=== PATIENT | male | born 1955 | race Caucasian/White ===

== ENCOUNTER 2021-10-26 10:50 | Outpatient (REF) | payer OTHER, SELFPAY ==
[2021-10-26 11:36] LABS: Hematocrit 36.5 % (42.0-52.0); Hemoglobin 12.3 g/dl (14.0-18.0); Mean Corpuscular HGB Conc 33.7 g/dl (31.0-36.0); Mean Corpuscular Volume 91.9 fL (80.0-98.0); Mean Platelet Volume 10.6 fL (9.4-12.4); Platelet Count 178 X10*3/uL (160-400); Red Blood Count 3.97 X10*6/uL (4.60-5.80); Red Cell Distribution Width 13.2 % (11.0-16.0); White Blood Count 4.9 X10*3/uL (4.8-10.8)
[2021-10-26 11:48] LABS: Appearance Urine HAZY; Color Urine YELLOW; Glucose Urine UA NEG (NEG); Leukocyte Esterase Urine NEG (NEG); Nitrite Urine NEG (NEG); Specific Gravity - Urine >= 1.030 (1.005-1.025); Urine Blood NEG (NEG); Urine Ketones NEG (NEG); Urine Protein TRACE MG/DL (NEG-TRACE)
[2021-10-26 12:13] LABS: Alanine Aminotransferase 279 U/L (0-40); Albumin Level 4.3 g/dL (3.5-5.0); Alkaline Phosphatase 66 U/L (39-117); Anion Gap 11 (12-20); Aspartate Amino Transferase 196 U/L (5-37); Bilirubin Direct 0.3 mg/dL (0.0-0.5); Bilirubin Total 0.7 mg/dL (0.0-1.0); Blood Urea Nitrogen 19 mg/dL (9-16); Carbon Dioxide 25 mmol/L (22-29); Chloride 105 mmol/L (96-108); Cholesterol 165 mg/dL; Estimated Glomerular Filt Rate > 60; Glucose Random 200 mg/dL (60-115); HDL Cholesterol 39 mg/dL; LDL Cholesterol Calculated 113 mg/dl; Potassium 4.4 mmol/L (3.3-5.1); Sodium 137 mmol/L (135-145); Total Protein 7.8 g/dL (6.5-8.0); Triglycerides 68 mg/dL
[2021-10-26 12:33] LABS: Thyroid Stimulating Hormone 2.59 uIU/mL (0.32-4.0)
== END 2021-10-26 10:51 | disposition home or self-care (01) ==
LOC: HO.LAB 10:50
PROVIDERS: PCP Internal Medicine; Visit Provider Internal Medicine
DX: Z00.00 Encounter for general adult medical examination without abnormal findings (principal)
CPT/HCPCS: 36415; 80048; 80061; 80076; 81003; 84443; 85027

== ENCOUNTER → 2022-04-20 14:10 | Outpatient (BNVA) | payer MEDICARE, MEDICAID, SELFPAY | PROVIDERS: PCP Internal Medicine; Referring Provider Internal Medicine; Visit Provider Physician Assistant | DX: Z01.818 Encounter for other preprocedural examination (principal) | CPT/HCPCS: 99202 ==

== ENCOUNTER 2023-01-30 10:13 | Day surgery (SDC) | payer MEDICARE, MEDICAID, SELFPAY ==
[2023-01-26 13:56] VITALS: BMI 34.6
[2023-01-30 10:34] VITALS: BMI 33.9
[2023-01-30 10:38] VITALS: BP 181/88; PULSE 76; RESP 18; TEMP 36.8; O2SAT 97
--- NOTE | 2023-01-30 10:51 | P.HPSUR_ITS ---
Pre-Procedural Eval Section A Date of Service: 01/30/23 Section B Chief Complaint: Encounter for screening for malignant neoplasm Relevant Family History (Specify if Yes): No Relevant Social History: Other (specify) (prior alcohl use ) Present Medications: see Short Stay Collaborative assessment Medical History: Significant History (Alcohol dependence, uncomplicated Substance use disorder) History of Previous Operations: Relevant previous surgery/procedure and date(s) (knee surgery) Allergies: Allergies Allergy/AdvReac Type Severity Reaction Status Date / Time No Known Allergies Allergy Verified 12/18/22 11:37 Review of Systems Sugical H&P ROS: Negative: Constitution, Cardiovascular, Respiratory, Neurological, Psychiatric, Hem-Onc, Allergic/Immunologic, Gastrointestinal, Genitourinary, Musculoskeletal, Integumentary, Endocrine and Eyes/Ears/Nose/T hroat Exam Surgical H&P Exam: Normal: HEENT, Normal: Heart, Normal: Lungs, Normal: Extremities, Normal: Abdomen, Normal: Skin and Normal: Neurological Plan Diagnosis/Plan: Unchanged I have reviewed the history and physical and performed a pertinent physical examination on my patient. No changes have occurred unless specified. Time Spent With Patient Time: Total time managing care of this patient today ____ minutes.
[2023-01-30] MEDS: Lactated Ringers 1,000 ML 100 ML IVCONT (10:59)
--- NOTE | 2023-01-30 11:06 | HO.ANESPROP2 ---
HPI - Anesthesia Eval Consult details Narrative: 67-year-old male presenting for routine screening colonoscopy PMF Active Problems Active Problems: All Active Problems (Updated 01/26/23 @ 13:56 by Roxana Angeles RN) Annual physical exam (Acute) Diabetes mellitus (Acute) Encounter for screening colonoscopy (Acute) Alcohol dependence, uncomplicated (Acute) Substance use disorder (Acute) Past Medical History Medical History (Updated 01/30/23 @ 11:13 by Kane John MD) Alcohol dependence, uncomplicated Diabetes Substance use disorder Family History Family History Other Substance use disorder Family history of problems with anesthesia: No Surgical History Surgical History History of knee surgery History of Problems with Anesthesia: No Social History Social History Household Members Other:: live alone Housing: House Alcohol intake: current Alcohol intake frequency: a few times a week Patient Tobacco Use Status: Never used Tobacco e-Cigarette/Vaping Use: Never Used Second Hand Smoke Exposure: No Use of substances other than those prescribed or required for medical reasons: No Substance Use Type Other:: suboxone - drug free x 10 years Are you DNR?: No Advance Directives: No Advance Directives Information Provided: Yes service: No Current occupational status: retired Cognitive needs: No Hearing needs: No Vision needs: Yes (Reading glasses) Meds Allergies Allergy/AdvReac Type Severity Reaction Status Date / Time No Known Allergies Allergy Verified 12/18/22 11:37 Active Medications: Current Medications Lactated Ringer's (Lr) 1,000 mls @ 100 mls/hr IVCONT .Q10H ROSEMARIE Last Admin: 01/30/23 10:59 Dose: 100 mls/hr Home Medications Medication Instructions Recorded Confirmed Last Taken Type buprenorphine 2 mg-naloxone 0.5 mg 2 mg sublingual DAILY 10/26/21 01/26/23 Unknown History sublingual film (Suboxone) Exam Exam Date and Time: January 30, 2023 1106 Height,Weight and Vital Signs: Height 6 ft Weight 250 lb Last Vital Signs Temp 98.2 F 01/30/23 10:38 Pulse 76 01/30/23 10:38 Resp 18 01/30/23 10:38 BP 181/88 H 01/30/23 10:38 Pulse Ox 97 01/30/23 10:38 O2 Del Method Room Air 01/30/23 10:38 Airway Mallampati Class: II TM Dist: >3cm Neck ROM: Full Loose/Missing/Broken Teeth: Yes Assessment and Plan Assessment Anesthesia Assessment: Anesthesia Plan Discussed Final Anesthetic Review Family History of Problems with Anesthesia: No History of Problems with Anesthesia: No NPO: Yes ASA Class: II Final Preanesthetic Review: No Changes in Pt Med Stat, Meds/Allgs Chart Reviewed, Consent Obtained/Reviewed and Anes Risks/Benef Reviewed Patient Risk: Low Procedure Risk: Low Anesthetic Plan Anesthetic Plan: MAC: Disposition: Standard PACU
--- NOTE | 2023-01-30 11:59 | W.PM.OPN ---
Operative Note Operative Note Date of Service: 01/30/23 Narrative: Operative Information Procedure Description: Colonoscopy Indication: screening Anesthesia: MAC COLONOSCOPY Instrument: Olympus variable stiffness ADULT scope 190L Colonoscopy Monitoring: Vital signs and clinical assessment, continuous EKG monitoring, Pulse oximetry, Carbon Dioxide monitoring and blood pressure monitoring were done throughout the procedure. Colon withdrawal time was 19 minutes. Procedure: The patient was placed in the left lateral decubitis position and pre-procedure medications were administered. After a digital rectal examination of the ano-rectum, the video colonoscope was inserted into the rectum and advanced through the colon to the cecum/TI. The colonoscope was slowly withdrawn in a retrograde panoramic fashion and the colon mucosa was carefully examined including a retroflexed view of the rectum. Findings and interventions are described below. Procedure Difficulty: easy Findings: Terminal Ileum-normal Cecum: x 2 sessile polyps - 4-6 mm removed with cold forceps Ascending Colon: 12 mm sessile polyp with central depression, did lift easily with eleview injection. Removed en bloc with hot snare and then defect closed with 3 clips. x2 sessile polyps 6-8 mm removed with cold snare. The proximal polyp was retrieved with a net. Transverse Colon -normal Descending Colon:normal Sigmoid Colon: midl diverticulosis Rectum: Retroflexion with small internal hemorrhoids, grade I Anorectum - normal Colon preparation: Chadwicks Bowel Preparation Scale Right colon; 2 Transverse colon: 3 Left colon; 2 (0 = Unprepared colon segment with mucosa not seen due to solid stool that cannot be cleared. 1 = Portion of mucosa of the colon segment seen, but other areas of the colon segment not well seen due to staining, residual stool and/or opaque liquid. 2 = Minor amount of residual staining, small fragments of stool and/or opaque liquid, but mucosa of colon segment seen well. 3 = Entire mucosa of colon segment seen well with no residual staining, small fragments of stool or opaque liquid) Impression and Post Procedure Diagnosis: polyps internal hemorrhoids diverticular disease Plan: High fiber diet leaflet Avoid straining at stool, epsom salts and sitz bath, anusol supps or cream Repeat Colonoscopy in 4-6 months or earlier if clinically indicated, if neoplasia then surgical referral Above findings were reviewed with the patient and relevant handouts were provided if indicated.
[2023-01-30 12:06] VITALS: BP 147/69; PULSE 66; RESP 16; TEMP 36.1; O2SAT 97
[2023-01-30 12:11] VITALS: BP 125/66; PULSE 68; RESP 18; O2SAT 97
[2023-01-30 12:16] VITALS: BP 127/71; PULSE 68; RESP 18; O2SAT 96
[2023-01-30 12:21] VITALS: BP 131/72; PULSE 60; RESP 18; TEMP 36.8; O2SAT 96
== END 2023-01-30 13:26 | disposition home or self-care (01) ==
PROVIDERS: PCP Internal Medicine; Visit Provider Internal Medicine Gastroenterology
PROC: 0DJD8ZZ Inspection of Lower Intestinal Tract, Via Natural or Artificial Opening Endoscopic (ICD-10-PCS; CPT 45378; principal; 2023-01-30 12:00)
DX: Z12.11 Encounter for screening for malignant neoplasm of colon (principal); C18.2 Malignant neoplasm of ascending colon; D12.0 Benign neoplasm of cecum; D12.2 Benign neoplasm of ascending colon; K57.30 Diverticulosis of large intestine without perforation or abscess without bleeding; K64.0 First degree hemorrhoids
CPT/HCPCS: 45385; 45380; 45381; 88305; 88341; 88342; J2250

== ENCOUNTER → 2023-01-30 10:13 | Outpatient (BNV) | payer MEDICARE, MEDICAID, SELFPAY | PROVIDERS: PCP Internal Medicine; Visit Provider Internal Medicine Gastroenterology | DX: K63.5 Polyp of colon (principal) | CPT/HCPCS: 45380; 45385 ==

== ENCOUNTER 2023-02-07 13:28 | Outpatient (AMB) | payer MEDICARE, MEDICAID, SELFPAY ==
--- NOTE | 2023-02-07 13:31 | A.OFFVIS_ITS ---
Intake Vital Signs 02/07/23 13:40 Weight 247 lb Intake Visit Reasons: Malignant neoplasm of colon Intake Note: This patient presents for an assessment for malignant neoplasm of colon. Patient c/o; denies rectal bleeding, denies rectal pain or pressure. Stage Rigger Required: No Accompanied by: Self / Same As Patient Allergies No Known Allergies Allergy (Verified 02/07/23 13:38) Medication List - Last Reconciled 02/07/23 by Don Fiore MD bisacodyl (Dulcolax (bisacodyl)) 10 mg (2 x 5 mg) PO ONCE 1 day blood-glucose meter As directed buprenorphine-naloxone 2-0.5 mg (Suboxone) 2 mg sublingual DAILY lisinopril 10 mg PO DAILY metformin ER 500 mg PO BID 90 days polyethylene glycol 3350 (Miralax) 238 grams PO ONCE 1 day HPI Malignant neoplasm of colon HPI Details 67-year-old male referred for colon cancer. He had a colonoscopy done last 01/30/2023. There were multiple polyps removed. One polyp removed from the proximal right colon showed invasive adenocarcinoma with mucinous differentiation. This polyp was described to be sessile, a central depression. This involves the submucosa and extends the cauterized base. There were the other polyps removed which were adenomatous without dysplasia. He says that this was his 1st colonoscopy. He denies any GI complaints. He denies any family history of colon cancer. [facility], [facility] Medical History Alcohol dependence, uncomplicated Diabetes Substance use disorder Surgical History History of knee surgery Hx of colonoscopy Family History Mother Cancer of unknown origin Other Substance use disorder Social History Household Members Other:: live alone Housing: House Alcohol intake: current Alcohol intake frequency: a few times a week Patient Tobacco Use Status: Never used Tobacco e-Cigarette/Vaping Use: Never Used Second Hand Smoke Exposure: No service: No Current occupational status: retired Cognitive needs: No Hearing needs: No Vision needs: Yes (Reading glasses) Review of Systems Const Denies chills and Denies fever(s) Card Denies chest pain, Denies dyspnea and Denies dyspnea on exertion Resp Denies cough, Denies dyspnea and Denies dyspnea on exertion GI Denies hematochezia and Denies change in bowel habits Denies hematuria and Denies difficulty urinating Musc Denies back pain and Denies limited range of motion Neuro Denies focal weakness and Denies convulsions Psych Denies depression and Denies mood swings Physical Exam Const General: comfortable and no acute distress Orientation/consciousness: patient oriented x3 Neck Neck: Yes no lymphadenopathy Resp Auscultation: clear to auscultation bilaterally Cardio Rhythm: regular rhythm GI Palpation (GI): Soft to palpation, nontender and no guarding Neuro General: patient oriented x3 Assessment & Plan Assessment & Plan (1) Colon cancer: Code(s): C18.9 - Malignant neoplasm of colon, unspecified Plan: A polyp removed at the proximal ascending colon was actually an invasive adenocarcinoma. This extends to the base. I therefore explained to him that it will be best to proceed with right colon resection. I discussed with the technique of hand assisted laparoscopic right colon resection and possible conversion to open. I reviewed with him the risks including but not limited to bleeding, infections, anastomotic leak, bowel injury, injury to other organs including the urinary tract, blood clots, pneumonia, obstruction, as well as the benefits and alternatives. He understands the perioperative risk of general anesthesia including NC, strokes, respiratory failure. He wants to proceed. I explained to him what to expect postoperatively. He will also be referred to Oncology. I will order for a CAT scan and CEA level as part of metastatic workup. Orders: Orders Blood Urea Nitrogen 02/07/23 C18.9 - Malignant neoplasm of colon, unspecified Carcinoembryonic Antigen 02/07/23 C18.9 - Malignant neoplasm of colon, unspe cified Creatinine 02/07/23 C18.9 - Malignant neoplasm of colon, unspecified Referrals Hematology & Oncology Referral C18.9 - Malignant neoplasm of colon, unspecified Coding Level of Care Code New Pt Level 4 (12343) Diagnoses Colon cancer C18.9
== END 2023-02-07 14:06 | disposition home or self-care (01) ==
PROVIDERS: PCP Internal Medicine; Visit Provider Surgery
DX: C18.9 Malignant neoplasm of colon, unspecified (principal)
CPT/HCPCS: 99204

== ENCOUNTER 2023-02-07 13:28 | Outpatient (REF) | payer MEDICARE, MEDICAID, SELFPAY ==
[2023-02-07 16:40] LABS: Blood Urea Nitrogen 28 mg/dL (9-16); Estimated Glomerular Filt Rate > 60
== END 2023-02-07 13:29 | disposition home or self-care (01) ==
LOC: HO.LAB 13:28
PROVIDERS: PCP Internal Medicine; Visit Provider Surgery
DX: C18.9 Malignant neoplasm of colon, unspecified (principal); Z79.899 Other long term (current) drug therapy
CPT/HCPCS: 36415; 82378; 82565; 84520; 99202

== ENCOUNTER → 2023-03-02 12:35 | Outpatient (BNV) | payer MEDICARE, MEDICAID, SELFPAY | PROVIDERS: Admitting Provider Surgery; PCP Internal Medicine; Visit Provider Internal Medicine Cardiovascular Disease | DX: I44.0 Atrioventricular block, first degree (principal) | CPT/HCPCS: 93010 ==

== ENCOUNTER 2023-03-07 15:58 | Outpatient (REF) | payer OTHER, SELFPAY | END 2023-03-07 15:59 | disposition home or self-care (01) | LOC: HO.CT 15:58 | PROVIDERS: PCP Internal Medicine; Visit Provider Surgery | DX: Z13.89 Encounter for screening for other disorder (principal) ==

== ENCOUNTER 2023-03-12 12:50 | Outpatient (REF) | payer OTHER, SELFPAY ==
--- NOTE | ~2023-03-12 | CT_ITS ---
EXAMINATION: CT ABDOMEN AND PELVIS WITH CONTRAST CLINICAL INFORMATION: Rule out metastatic disease COMPARISON: Abdominal ultrasound from 2009 TECHNIQUE: Multidetector volumetric images were obtained from the superior aspect of the liver through the pubic symphysis following administration 85 mL of Omnipaque 350 intravenous contrast. Sagittal and coronal reformatted images were obtained on the technologist's workstation. Oral contrast: Yes This CT examination was performed using dose optimization techniques as appropriate, variously including the following: *Automated exposure control *Adjustment of mA and/or kV according to patient size (this includes techniques or standardized protocols for targeted exams where dose is matched to indication/reason for exam; i.e. extremities or head) *Use of iterative reconstruction technique DLP: 838 mGy-cm FINDINGS: LUNG BASES: 5 mm peripheral or subpleural right lower lobe nodule axial image 2 series 3. LIVER, GALLBLADDER, AND BILIARY TREE: Question mild cirrhotic changes of the liver with slightly nodular contour prominence of the left lobe and caudate lobe. No focal liver lesion. Gallbladder is normal. No biliary duct dilatation. PANCREAS: Unremarkable. SPLEEN: Upper normal-size spleen measuring 13.3 cm in length. ADRENAL GLANDS: Unremarkable. KIDNEYS AND URETERS: The kidneys are normal in size, shape, and attenuation. No hydronephrosis, hydroureter, or calculi seen. No perinephric stranding. BLADDER: Unremarkable. GASTROINTESTINAL TRACT: There is mild dilatation of small bowel loops in the left mid abdomen and small bowel feces sign. There is question of irregular wall thickening or lesion in the proximal small bowel for example axial image 48 series 3. Small and large bowel is otherwise normal. The appendix is normal. The stomach is normal. ABDOMINAL WALL: No significant hernia is appreciated. LYMPH NODES: Small retroperitoneal lymph nodes. No enlarged lymph nodes. No ascites. VASCULAR: Unremarkable. PELVIC VISCERA: Unremarkable. OSSEOUS STRUCTURES: Degenerative changes of the spine and hip joints. No fracture or bone lesion. CT/CT abdomen pelvis w IV con IMPRESSION: Question mild cirrhotic changes of the liver. Upper normal-size spleen. Slightly distended small bowel fluid-filled proximal small bowel with fecalization. Question irregular wall thickening versus lesion in the proximal small bowel image 48 series 3. Correlation with clinical history recommended. This could be better evaluated with MR or CT enterography exam if clinically indicated. 5 mm right lower lobe nodule. Chest CT follow-up as per protocol.. Fleischner guidelines were followed.
[2023-03-12] MEDS: iohexoL 350 MG/ML 100 ML INFUS..BTL IV (13:47)
== END 2023-03-12 12:51 | disposition home or self-care (01) ==
LOC: HO.CT 12:50
PROVIDERS: PCP Internal Medicine; Visit Provider Surgery
DX: C18.9 Malignant neoplasm of colon, unspecified (principal)
CPT/HCPCS: 74177; Q9967

== ENCOUNTER 2023-03-13 07:40 | Inpatient (IN) | payer OTHER, SELFPAY ==
--- NOTE | 2023-03-02 | ECG_ITS ---
Test Reason : preop Blood Pressure : / mmHG Vent. Rate : 061 BPM Atrial Rate : 061 BPM P-R Int : 256 ms QRS Dur : 090 ms QT Int : 410 ms P-R-T Axes : 047 053 054 degrees QTc Int : 412 ms Sinus rhythm with sinus arrhythmia with 1st degree A-V block Otherwise normal ECG No previous ECGs available Referred By: Brissa Borges Electronically Signed By:Chaitanya Lugo
[2023-03-02 11:24] VITALS: BP 211/100; PULSE 64; RESP 16; O2SAT 99; BMI 35.1
--- NOTE | 2023-03-02 12:04 | HO.ANESPROP2 ---
Documented by User: Brissa Borges NP 03/08/23 13:51 HPI - Anesthesia Eval Consult details Narrative: 68yo M for Right Hand Assist Colon Resection Laparoscopic,poss open No recent illness NO CP/SOB with heavy exercise Suboxone daily for 10yrs. Dose now is 2mg daily. OK to continue periop. ETOH 5-6 beers daily, pt reports stopping last Sunday DM2 - does not check POC at home BP up at [facility]. Previous readings WNL. Reports stress/not sleeping. Workload to PCP with any rec's preop. Urine tox ordered at [facility] but not collected by lab. [facility] Active Problems Active Problems: All Active Problems (Updated 03/02/23 @ 11:57 by Lynn Sloan, KAREN) Annual physical exam (Acute) Diabetes mellitus (Acute) Encounter for screening colonoscopy (Acute) Hypertension (Acute) Colon cancer (Acute) Alcohol dependence, uncomplicated (Acute) Substance use disorder (Acute) Past Medical History Medical History (Updated 03/02/23 @ 11:57 by Lynn Sloan RN) Alcohol dependence, uncomplicated Diabetes Joint pain Situational anxiety Substance use disorder Family History Family History Mother Cancer of unknown origin Other Substance use disorder Family history of problems with anesthesia: No Surgical History Surgical History (Updated 03/02/23 @ 11:14 by Lynn Sloan RN) History of knee surgery Hx of colonoscopy History of Problems with Anesthesia: No Social History Social History (Updated 03/02/23 @ 11:55 by Lynn Sloan RN) Household Members: None Household Members Other:: lives alone Housing: Apartment Are you a primary career technical education teacher to a significant other at home: No Do you presently have visiting nurse or other home services: No Alcohol intake: current Alcohol intake frequency: a few times a week Patient Tobacco Use Status: Never used Tobacco e-Cigarette/Vaping Use: Never Used Second Hand Smoke Exposure: No Last Used Substance Other:: last used more than 10 years ago opiates, on Suboxone 11 years service: No Current occupational status: retired Cognitive needs: No Hearing needs: No Vision needs: Yes (Reading glasses) Meds Allergies Allergy/AdvReac Type Severity Reaction Status Date / Time No Known Allergies Allergy Verified 03/13/23 06:47 Home Medications Medication Instructions Recorded Confirmed Last Taken Type buprenorphine 2 mg-naloxone 0.5 mg 2 mg sublingual DAILY 10/26/21 03/13/23 03/12/23 History sublingual film (Suboxone) 2 mg Exam Exam Date and Time: March 02, 2023 1204 Height,Weight and Vital Signs: Height 5 ft 11 in Weight 114.305 kg Last Vital Signs Pulse 64 03/02/23 11:24 Resp 16 03/02/23 11:24 BP 211/100 H 03/02/23 11:24 Pulse Ox 99 03/02/23 11:24 O2 Del Method Room Air 03/02/23 11:24 Pertinent Lab Results Pertinent Lab Results: Lab Results 03/02/23 03/02/23 03/02/23 Range/Units 12:35 12:39 12:39 WBC 5.0 (4.8-10.8) X10*3/uL RBC 3.75 L (4.60-5.80) X10*6/uL Hgb 11.5 L (14.0-18.0) g/dl Hct 34.7 L (42.0-52.0) % MCV 92.5 (80.0-98.0) fL MCH 30.7 (27.0-33.0) pg MCHC 33.1 (31.0-36.0) g/dl RDW 13.1 (11.0-16.0) % Plt Count 144 L (160-400) X10*3/uL MPV 10.7 (9.4-12.4) fL Absolute Nucleated RBC 0.000 (0.0-0.012) X10*3/uL Nucleated RBC % (auto) 0.0 (0.0-0.2) /100WBC Sodium 140 (135-145) mmol/L Potassium 4.2 (3.3-5.1) mmol/L Chloride 104 (96-108) mmol/L Carbon Dioxide 28 (22-29) mmol/L Anion Gap 12 (12-20) BUN 10 (9-16) mg/dL Creatinine 1.11 (0.5-1.4) mg/dL Estim Creat Clear Calc 84.1 Estimated GFR > 60 Random Glucose 151 H (60-115) mg/dL Estimat Average Glucose mg/dL Hemoglobin A1c % % Calcium 9.3 (8.4-10.2) mg/dL Total Bilirubin 0.5 (0.0-1.0) mg/dL AST 25 (5-37) U/L ALT 23 (0-40) U/L Alkaline Phosphatase 69 (39-117) U/L Total Protein 7.6 (6.5-8.0) g/dL Albumin 4.1 (3.5-5.0) g/dL Blood Type AB Positive Antibody Screen NEGATIVE 03/02/23 Range/Units 12:39 WBC (4.8-10.8) X10*3/uL RBC (4.60-5.80) X10*6/uL Hgb (14.0-18.0) g/dl Hct (42.0-52.0) % MCV (80.0-98.0) fL MCH (27.0-33.0) pg MCHC (31.0-36.0) g/dl RDW (11.0-16.0) % Plt Count (160-400) X10*3/uL MPV (9.4-12.4) fL Absolute Nucleated RBC (0.0-0.012) X10*3/uL Nucleated RBC % (auto) (0.0-0.2) /100WBC Sodium (135-145) mmol/L Potassium (3.3-5.1) mmol/L Chloride (96-108) mmol/L Carbon Dioxide (22-29) mmol/L Anion Gap (12-20) BUN (9-16) mg/dL Creatinine (0.5-1.4) mg/dL Estim Creat Clear Calc Estimated GFR Random Glucose (60-115) mg/dL Estimat Average Glucose 148 mg/dL Hemoglobin A1c % 6.8 % Calcium (8.4-10.2) mg/dL Total Bilirubin (0.0-1.0) mg/dL AST (5-37) U/L ALT (0-40) U/L Alkaline Phosphatase (39-117) U/L Total Protein (6.5-8.0) g/dL Albumin (3.5-5.0) g/dL Blood Type Antibody Screen Narrative Narrative: EKG 02/2023 Vent. Rate : 061 BPM ? ? Atrial Rate : 061 BPM ?? P-R Int : 256 ms? QRS Dur : 090 ms ? ? QT Int : 410 ms ? ? ? P-R-T Axes : 047 053 054 degrees ?? QTc Int : 412 ms ? Sinus rhythm with sinus arrhythmia with 1st degree A-V block Otherwise normal ECG No previous ECGs available Airway Mallampati Class: I TM Dist: >3cm Neck ROM: Full Loose/Missing/Broken Teeth: Yes (Broken top right. Broken left lower.) Heart: RRR Lungs: CTAB Assessment and Plan Assessment Anesthesia Assessment: Anesthesia Plan Discussed and PAT Visit Final Anesthetic Review Family History of Problems with Anesthesia: No History of Problems with Anesthesia: No Documented by User: Contreras Haynes MD 03/13/23 07:34 [facility] Past Medical History Medical History (Updated 03/02/23 @ 11:57 by Lynn Sloan RN) Alcohol dependence, uncomplicated Diabetes Joint pain Situational anxiety Substance use disorder Family History Family History Mother Cancer of unknown origin Other Substance use disorder Surgical History Surgical History (Updated 03/02/23 @ 11:14 by Lynn Sloan RN) History of knee surgery Hx of colonoscopy Social History Social History (Updated 03/02/23 @ 11:55 by Lynn Sloan RN) Household Members: None Household Members Other:: lives alone Housing: Apartment Are you a primary career technical education teacher to a significant other at home: No Do you presently have visiting nurse or other home services: No Alcohol intake: current Alcohol intake frequency: a few times a week Patient Tobacco Use Status: Never used Tobacco e-Cigarette/Vaping Use: Never Used Second Hand Smoke Exposure: No Last Used Substance Other:: last used more than 10 years ago opiates, on Suboxone 11 years service: No Current occupational status: retired Cognitive needs: No Hearing needs: No Vision needs: Yes (Reading glasses) Meds Allergies Allergy/AdvReac Type Severity Reaction Status Date / Time No Known Allergies Allergy Verified 03/13/23 06:47 Home Medications Medication Instructions Recorded Confirmed Last Taken Type buprenorphine 2 mg-naloxone 0.5 mg 2 mg sublingual DAILY 10/26/21 03/13/23 03/12/23 History sublingual film (Suboxone) 2 mg Exam Airway Mallampati Class: II TM Dist: <=3cm Loose/Missing/Broken Teeth: Upper Assessment and Plan Assessment Anesthesia Assessment: Chart Reviewed Final Anesthetic Review NPO: Yes ASA Class: III Final Preanesthetic Review: No Changes in Pt Med Stat, Meds/Allgs Chart Reviewed, Consent Obtained/Reviewed and Anes Risks/Benef Reviewed Patient Risk: Intermediate Procedure Risk: Intermediate Anesthetic Plan Anesthetic Plan: GA and Regional Block (TAP block, if poss) Disposition: Standard PACU
[2023-03-02 13:20] LABS: Hematocrit 34.7 % (42.0-52.0); Hemoglobin 11.5 g/dl (14.0-18.0); Mean Corpuscular HGB Conc 33.1 g/dl (31.0-36.0); Mean Corpuscular Hemoglobin 30.7 pg (27.0-33.0); Mean Corpuscular Volume 92.5 fL (80.0-98.0); Mean Platelet Volume 10.7 fL (9.4-12.4); Platelet Count 144 X10*3/uL (160-400); Red Blood Count 3.75 X10*6/uL (4.60-5.80); Red Cell Distribution Width 13.1 % (11.0-16.0)
[2023-03-02 14:48] LABS: Alanine Aminotransferase 23 U/L (0-40); Albumin Level 4.1 g/dL (3.5-5.0); Alkaline Phosphatase 69 U/L (39-117); Anion Gap 12 (12-20); Aspartate Amino Transferase 25 U/L (5-37); Bilirubin Total 0.5 mg/dL (0.0-1.0); Blood Urea Nitrogen 10 mg/dL (9-16); Calcium 9.3 mg/dL (8.4-10.2); Carbon Dioxide 28 mmol/L (22-29); Chloride 104 mmol/L (96-108); Creatinine Clr Calc Pharmacy 84.1; Estimated Glomerular Filt Rate > 60; Glucose Random 151 mg/dL (60-115); Potassium 4.2 mmol/L (3.3-5.1); Sodium 140 mmol/L (135-145); Total Protein 7.6 g/dL (6.5-8.0)
[2023-03-03 03:28] LABS: Estimated Average Glucose 148 mg/dL; Hemoglobin A1C 150.8223 umol/L; Hemoglobin A1c % 6.8 %
[2023-03-13] VITALS (25 sets, daily range): BP systolic 153–218; BP diastolic 66–105; PULSE 66–80; RESP 16–20; TEMP 36.3–37.7; O2SAT 96–98
--- NOTE | ~2023-03-13 | XR_ITS ---
EXAMINATION: XR X ARE IVP WITH KUB CLINICAL INDICATION: Blood in urine COMPARISON: Previous CT of the abdomen and pelvis 03/12/2022 and KUB from the same day TECHNIQUE: AP intraoperative view of the low abdomen/pelvis following IV contrast administered in the operating room. FINDINGS: There is opacification of both distal ureters which appear nondilated. There may be a small amount of excreted contrast seen in the bladder. There multiple foreign bodies seen, a lucent [place] over the midline abdomen measuring 15.7 cm in diameter, probable sponge over the soft tissues of the left lateral thigh, probable needle projecting over the left proximal femoral shaft and 2 partially visualized circles probably representing handle of a surgical device. Bowel gas pattern is unremarkable. Degenerative changes of the spine and hip joints. XR/XR IVP w KUB IMPRESSION: Opacification of bilateral distal ureters which do not appear dilated. Probable small amount of excreted contrast in the bladder. Foreign bodies likely related to a surgical instruments as described above.
--- NOTE | ~2023-03-13 | XR_ITS ---
EXAMINATION: XR ABDOMEN KUB CLINICAL INDICATION: Blood in urine COMPARISON: Previous CT of the abdomen and pelvis 03/12/2022 TECHNIQUE: AP intraoperative view of the low abdomen/pelvis following IV contrast administered in the operating room. FINDINGS: There is opacification of both distal ureters which appear nondilated. There may be a small amount of excreted contrast seen in the bladder. There multiple foreign bodies seen, a lucent [place] over the midline abdomen measuring 15.7 cm in diameter, probable sponge over the soft tissues of the left lateral thigh, probable needle projecting over the left proximal femoral shaft and 2 partially visualized circles probably representing handle of a surgical device. Bowel gas pattern is unremarkable. Degenerative changes of the spine. XR/XR KUB IMPRESSION: Opacification of bilateral distal ureters which do not appear dilated. Probable small amount of excreted contrast in the bladder. Foreign bodies likely related to a surgical instruments as described above.
[2023-03-13 07:10] LABS: Amphetamine Screen Urine Not Detected (Not Detect); Barbiturates, Urine Not Detected (Not Detect); Benzodiazepines Screen Urine Not Detected (Not Detect); Cannabinoid Screen Urine POSITIVE (Not Detect); Cocaine Screen Urine Not Detected (Not Detect); Fentanyl, urine Not Detected (Not Detect); Opiate Screen Urine Not Detected (Not Detect); Phencyclidine Screen Urine Not Detected (Not Detect)
--- NOTE | 2023-03-13 07:29 | PC.NURSE ---
Patient arrived to preop with 4 films of Sublingual Suboxone. Medications counted and sealed properly with two RNs and brought to pharmacy by liyah Donahue.
[2023-03-13] MEDS: Lactated Ringers 1,000 ML 100 ML IVCONT ×2 (07:30→17:50)
--- NOTE | 2023-03-13 07:35 | PC.NURSE ---
All recent Lab results (PLT, CBC) from 03/[address] Fiore and Dr. Stemp. Hernandez to proceed with surgery.
--- NOTE | 2023-03-13 07:38 | P.HPSUR_ITS ---
Pre-Procedural Eval Section A Date of Service: 03/13/23 Section B Chief Complaint: Malignant neoplasm of colon, unspecified Details of Present Illness: had colonoscopy in January 30, 2023, with note of a flat polyp in the ascending colon, with central depression, removed with snare but path report shows invasive adenoCA, extending to the margins Relevant Family History (Specify if Yes): No Relevant Social History: Other (specify) (substance abuse) Present Medications: see Short Stay Collaborative assessment Medical History: Significant History (substance abuse, on suboxone, DM, HTN) History of Previous Operations: Relevant previous surgery/procedure and date(s) Allergies: Allergies Allergy/AdvReac Type Severity Reaction Status Date / Time No Known Allergies Allergy Verified 03/13/23 06:47 Review of Systems Sugical H&P ROS: Negative: Constitution, Cardiovascular, Respiratory, Neurological, Psychiatric, Hem-Onc, Allergic/Immunologic, Gastrointestinal, Genitourinary, Musculoskeletal, Integumentary, Endocrine and Eyes/Ears/Nos e/Throat Exam Surgical H&P Exam: Normal: HEENT, Normal: Heart, Normal: Lungs, Normal: Extremities, Normal: Abdomen, Normal: Skin and Normal: Neurological Plan Diagnosis/Plan: Unchanged I have reviewed the history and physical and performed a pertinent physical examination on my patient. No changes have occurred unless specified. Time Spent With Patient Time: Total time managing care of this patient today ____ minutes.
--- OUTSIDE RECORDS SUMMARY | 2023-03-13 07:46 | XMS_ITS | Continuity of Care Document ---
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 Worker Name Role Phone Not on Staff, PCP Primary Care Physician Unavail able Encounter [facility] Date(s): 05/20/20 - 05/20/[address] [id number]- [facility] Discharge Disposition: A-D/C Home Attending Physician: Guy Bryan MD Admitting Physician: Guy Bryan MD Referring Physician: Not on Staff, Referring MD Allergies, Adverse Reactions, Alerts Substance Reaction Severity Status NKA Active Immunizations Given and Recorded Vaccine Date Status Refusal Reason tetanus/diphtheria/pertussis, acel(Tdap) 10/02/10 Given Medications no current home medications 0, 04/18/06 5:10:55, Current med (Hx), no current home medications Start Date: 04/18/06 Status: Ordered Seroquel Tablet 100, mg, By Mouth, Daily at bedtime, 14, 1, 0, 1, 04/23/06 14:43:50, Print MARIA DOLORES Number, ADS OPPT, [facility] Adult [address] [place] [id number], 144 Start Date: 04/23/06 Stop Date: 05/07/06 Status: Ordered Trazodone Tablet 150, mg, By Mouth, Daily at bedtime, 14, 1, 0, 1, 04/23/06 14:42:49, ADS OPPTHS, 144 Start Date: 04/23/06 Stop Date: 05/07/06 Status: Ordered Zoloft Tablet 100, mg, By Mouth, Daily in AM, 14, 1, 0, 1, 04/23/06 14:43:20, Print MARIA DOLORES Number, ADS OPPTHS, 141 Start Date: 04/23/06 Stop Date: 10/16/06 Status: Ordered Vital Signs Most recent to oldest [Reference Range]: 1 2 Height 180 cm (05/20/20 8:17 AM) 180 cm (05/20/20 4:03 AM) Weight 115 kg (05/20/20: AM) 115 kg (05/20/20:03 AM) Oxygen Saturation [94-100 %] 98 % (05/20/20 8:17 AM) 98 % (05/20/20:03 AM) Pulse Rate [55-90 bpm] 61 bpm (05/20/20: AM) 70 bpm (05/20/20:03 AM) Body Mass Index [18.5-24.99] 35.49 *>HHI* (05/20/20: AM) Blood Pressure [90-138/55-84 mm Hg] 113/ 54mm Hg (05/20/20 8:17 AM) 124/73mm Hg (05/20/20:03 AM) Respiratory Rate [16-30 br/min] 20 br/mi n (05/20/20: AM) 18 br/min (05/20/20:03 AM) Temperature [96.8-100.4 DegF] 97.9 DegF (05/20/20: AM) 97.7 DegF (05/20/20:03 AM) Mode of Delivery (Oxygen) Room air (05/20/20 8: AM) Blood pressure sites Arm, left (05/20/20 8: AM) Temperature Route Oral (05/20/20 8:17 AM) Dry Weight 115 kg (05/20/20 8:17 AM) 115 kg (05/20/20:03 AM)
--- NOTE | 2023-03-13 11:52 | P.OP_ITS ---
Operative Note Operative Note Date of Service: 03/13/23 Narrative: Preop diagnosis: right colon cancer Postop diagnosis: The same Procedure: Hand assisted laparoscopic right colon resection intraop consultation with Urology - Dr. Cortez for hematuria surgeon: Don Fiore MD front office assistant: NAKUL Kaba Patient is 68-year-old male gone colonoscopy last January, and had a polyp removed in the ascending colon need a cecum. This was discussed with the endoscopist. The path report had shown invasive adenocarcinoma with positive margins I therefore explained to him that it would be best to proceed with right colon resection. I explained to the technique of the planned procedure as well as the risks, benefits, and alternatives and had given consent He was brought to the operating room. He was placed supine under general anesthesia via endotracheal tube. The left arm was tucked. Tolbert catheter was inserted. The abdomen was prepped and draped in the usual sterile fashion. A surgical time-out was done. The patient received Cefotan 2 g IV preoperatively I made a short midline incision at the level of the umbilicus using blade 15. And this carried down with electrocautery through the full-thickness of the skin subcutaneous fat down to the fascia. The fascia was incised. The peritoneum was entered. The Hunter wound retractor position. I attached the GelPort with an insufflating port and a camera. We insufflated to pressure 50 minutes hg. With laparoscopic visualization using a 30 degree 10 mm scope, inserted a 5/12 mm port in the epigastric area below the cyst sternal margin as well as on the left upper quadrant. We moved the camera into the epigastric port. With patient's placed any [id number] position. We my head was placed to the GelPort and reflected all the bowel loops away from the right lower quadrant. I was able to visualize the cecum in the right colon. I proceeded to then mobilize the right colon by dividing the ligamentous attachments along the white line of Toldt using the LigaSure. I continue with dissection all the way at hepatic flexure to divide the hepatocolic ligaments. This was continued to the midline. I then proceeded to continue to lift up the right colon off of the retroperiton eum. I continued to mobilize the cecum and the terminal ileum to divide the ligamentous attachment until was adequately mobilized. I was able to therefore separate the entire colon and the attached mesentery from the retroperitoneum. This time it appeared that we had good mobilization so I attempted to bring out these colon to the midline incision. However we were able to bring up the terminal ileum and the cecum but we notice we a at some tension on the hepatic flexure. I therefore replaced the bowel was packed to the peritoneal cavity It appeared that we had to divide more of the gastrocolic ligament so we proceeded to do this using the LigaSure all the way past the midline. I was able to visualize the duodenum already earlier and this was protected during the rest of the dissection. We had already lifted the right colon off of the retroperitoneum at the level of the duodenum which was our medial margin We then desufflated and pulled up the cecum and this time ray able to actually bring up the entire right colon all the way to the hepatic flexure and the proximal transverse colon. I chose my point of dissection in the terminal ileum and created a mesenteric window. I divided this with a LAURO 60 mm stapler I divided the mesentery of the terminal ileum till I reached the ileocecal valve. Since we had to do a high ligation, I did this transection of the ped icles scopic LEEP. I replaced the port. I defined the ileocolic pedicle so with the vein and the artery separately until was able to completely do a circumferential dissection. I applied clips with 2 clips being applied towards the side of the patient. Both the i drain in the artery of the physical vulvar divided using Endo scissors 20 clips We desufflated and by dividing the pedicle were able to bring up more of the right colon and the mesentery. I divided more of the mesentery. I chose point of dissection at the proximal transverse colon and created a mesenteric window. I divided this using the LAURO 80 mm stapler because of the size of the transverse colon I completed the dissection of the attached mesentery, making sure that we were including as much of the lymphatic basin as possible This was sent as a specimen. I proceeded to then do the ucar-my-[id number] anastomosis of the distal ileum to the proximal transverse colon. I aligned these limbs together at the antimesenteric side and created enterotomies on the apex of each staple line. I positioned each arm of the LAURO 60 mm stapler into the lumen. I made sure that there was no bowel loops or any mesentery caught by the staplers before locking this in place. The stapler was fired to create our anastomosis. The lumen was examined. The staple lines appear intact from the lumen and with good hemostasis I completed the anastomosis by closing the enterotomy with a TA 60 minutes stapler. I applied seromuscular sutures on the crotch of the staple line to release tension. I examined the staple lines and these appeared to be intact. The tissue appeared to be viable along the anastomosis. There was no evidence of any ischemia. I observed for hemostasis. This point the anesthesiologist had stated that the urine was bloody. I therefore consulted the urologist. He will dictate his consult note separately but in essence, a 1 shot IVP was done which showed that the ureter was intact. We then proceeded irrigate we observed for hemostasis. We had noted oozing on the gutter earlier but her observing for several minutes, this appeared to be hemostatic. Once hemostasis was confirmed,I proceeded to closed the fascia with a running Maxon 1 stitch. Skin closure was achieved with skin lisa. We had examined the closure laparoscopically prior to desufflating and this appeared to be intact without any loop caught by the sutures I removed the epigastric port. I closed all incisions with skin lisa . Dressings were applied. The procedure was completed. The patient tolerated the procedure well. There were no immediate complications. Initial and final counts of sponges and instruments were correct. Estimated blood loss was about 200 cc. The patient was extubated without difficulty and transferred to the recovery room with stable vital signs. A tap block was done by the anesthesiologist at the end. Colon Resection Tumor location: Right colon and Hepatic flexure Extent of lymphovascular resection General Surg. - Synoptic Notes Colon Resection Tumor location: Right colon and Hepatic flexure Extent of Lymphovascular Resection:
[2023-03-13] MEDS: HYDROmorphone HCl 0.5 MG/0.5 ML SYRINGE 1 MG IVPUSH ×2 (12:46→12:56)
[2023-03-13] MEDS: ondansetron HCL 4 MG/2 ML VIAL IVPUSH (12:50)
--- NOTE | 2023-03-13 12:53 | PHA.MEDREC ---
Pharmacy Consult ? Medication Reconciliation Pharmacy has completed the medication reconciliation.REVIEWED MED REC DONE BY NURSING
[2023-03-13] MEDS: Morphine Sulfate 4 MG/ML CARTRIDGE IVPUSH (14:30)
--- NOTE | 2023-03-13 15:38 | HO.PM.IMCN ---
History of Present Illness Data of Consult Service Date: 03/13/23 Requesting physician: Don Fiore Primary Care Provider: MD REGINA Schultz Reason for consult: medical management- htn 68 year old male with history of htn, [id number] type 2 diabetes, opiate use disorder, colon cancer, and history of alcohol dependence admitted to general surgery with consult placed hospitalist Medicine for medical management with concern for hypertension. Patient has been persistently hypertensive postoperatively and on recheck on exam blood pressure is 202/105. States he did take his lisinopril 10 mg this morning. He denies any headache or chest pain but does report uncontrolled abdominal pain rated 10/10. He states his last alcoholic beverage was about 1 week ago. He does not smoke cigarettes or use illicit drugs. He is on Suboxone. Review of Systems Review of Systems: General: No fevers, malaise, unintentional weight loss HEENT: No blurred vision, diplopia. Cardiovascular: No chest pain, palpitations, or leg edema Respiratory: No shortness of breath, wheezing, cough GI: +abdominal pain. No nausea, vomiting, diarrhea, constipation, melena, hematochezia [facility] Medical History Alcohol dependence, uncomplicated Colon cancer Diabetes Hypertension Joint pain Situational anxiety Substance use disorder Family History Mother Cancer of unknown origin Other Substance use disorder Surgical History History of knee surgery Hx of colonoscopy Social History Household Members: None Household Members Other:: lives alone Housing: Apartment Are you a primary animal care provider to a significant other at home: No Do you presently have visiting nurse or other home services: No Alcohol intake: current Alcohol intake frequency: a few times a week Patient Tobacco Use Status: Never used Tobacco e-Cigarette/Vaping Use: Never Used Second Hand Smoke Exposure: No Use of substances other than those prescribed or required for medical reasons: No Substance Use Type Other:: on Suboxone 11 years Have you been hit, kicked, punched, or otherwise hurt by someone within the past year? If so, by whom?: No Do you feel safe in your current relationship?: Yes Is there a partner from a previous relationship who is making you feel unsafe now?: No Are you made to feel afraid or neglected: No Are you DNR?: No Advance Directives: No Advance Directives Information Provided: Yes Advance Directives on File: No Do you have thoughts of harming others: None Do you have a plan to hurt others: No Plan Recently lost weight without trying: No Nutrition Risks: No Nutritional Risk Poor oral hygiene: No (2 upper right molars missing, 1 left lower molar missing) service: No Current occupational status: retired Cognitive needs: No Hearing needs: No Vision needs: Yes (Reading glasses) Meds Allergies Allergy/AdvReac Type Severity Reaction Status Date / Time No Known Allergies Allergy Verified 03/13/23 06:47 Active Medications: Current Medications Buprenorphine/Naloxone (Buprenorphine/Naloxone 2/0.5mg Film) 1 film SUBLINGUAL DAILY [place] Dextrose (Dextrose 50 % 25 Gm/50 Ml Syringe) 25 gm IVPUSH Q15M PRN; Protocol PRN Reason: per Hypoglycemia Standing Ord. Glucose (Glucose Gel 15 Gm Gel..Gram.) 15 gm PO Q15M PRN; Protocol PRN Reason: per Hypoglycemia Standing Ord. Heparin Sodium (Porcine) (Heparin Sodium,Porcine 5,000 Unit/Ml Vial) 5,000 unit SUBCUT Q8H [place] Hydromorphone HCl (Hydromorphone Hcl 1 Mg/Ml Syringe) 1 mg IVPUSH Q2H PRN; Protocol PRN Reason: Pain, Severe (Pain Scale 7-10) Lactated Ringer's (Lr) 1,000 mls @ 100 mls/hr IVCONT .Q10H [facility] Last Infusion: 03/13/23 13:44 Dose: Infused Acetaminophen (Ofirmev) 1,000 mg in 100 mls @ 400 mls/hr IV Q6H [facility] Insulin Human Lispro (Insulin Lispro 100 Unit/Ml 3 Ml Vial) 0 unit SUBCUT QIDACHS [facility]; Protocol Lisinopril (Lisinopril 10 Mg Tablet) 10 mg PO DAILY [facility]; Protocol Ondansetron HCl (Ondansetron Hcl 4 Mg/2 Ml Vial) 4 mg IVPUSH Q8H PRN PRN Reason: Nausea and Vomiting Oxycodone HCl (Oxycodone Hcl Immed Release 5 Mg Tablet) 5 mg PO Q4H PRN PRN Reason: Pain, Moderate(Pain Scale 4-6) Sodium Chloride (0.9 % Sodium Chloride Flush 3 Ml Syringe) 3 ml IVFLUSH QSHIFT [place] Last Admin: 03/13/23 15:17 Dose: Not Given Home Medications Medication Instructions Recorded Confirmed Last Taken Type buprenorphine 2 mg-naloxone 0.5 mg 2 mg sublingual DAILY 10/26/21 03/13/23 03/12/23 History sublingual film (Suboxone) 2 mg Physical Exam Vital Signs and Narrative: Vital Signs: Last Vital Signs Temp 99.9 F 03/13/23 13:51 Pulse 67 03/13/23 13:51 Resp 16 03/13/23 13:51 BP 202/105 H 03/13/23 14:20 Pulse Ox 98 03/13/23 13:51 O2 Del Method Nasal Cannula 03/13/23 13:51 O2 Flow Rate 2 03/13/23 13:51 BMI result Body Mass Index 35.1 Constitutional - Awake and Alert, moderate distress Eyes - PERRLA, EOMI Cardiovascular - S1S2, RRR, No edema Respiratory - Normal lung expansion, Normal respiratory effort, No respiratory distress, CTA bilaterally Extremities - no calf tenderness bilaterally, no swelling Skin - Warm/Dry Neurological - Alert & oriented x3 Psychological - Appropriate affect Results Labs 03/02/23 12:39 03/02/23 12:39 Labs: Laboratory Results - last 24 hr 03/13/23 06:42 Urine Opiates Screen Not Detected Urine Fentanyl Screen Not Detected Ur Barbiturates Screen Not Detected Ur Phencyclidine Scrn Not Detected Ur Amphetamines Screen Not Detected U Benzodiazepines Scrn Not Detected Urine Cocaine Screen Not Detected U Marijuana (THC) Screen POSITIVE H Assessment and Plan (1) Hypertension: Status: Acute (2) Colon cancer: Status: Acute Plan 68 year old male with history of htn, [id number] type 2 diabetes, opiate use disorder, colon cancer, and history of alcohol dependence admitted to general surgery with consult placed hospitalist Medicine for medical management with concern for hypertension. #Colon cancer -plan per orthopedic surgery #HTN -uncontrolled with BP 202/105, likely complicated by pain -Give 10mg IV hydralazine now -Continue lisinopril 10mg am. Consider adding addl PO -Monitor BP closely # [id number] type 2 diabetes -POC glucose -advanced a diabetic diet -Humalog on sliding scale, hold metformin Thank you for this consult, will continue to follow for bp management. Time Spent With Patient Time: Total time managing care of this patient today ____ minutes.
[2023-03-13] MEDS: hydrALAZINE HCl 20 MG/ML VIAL 10 MG IVPUSH (15:57)
[2023-03-13] MEDS: Acetaminophen 1,000 MG/100 ML PIGGYBACK 400 MG IV ×2 (16:08→21:59)
--- NOTE | 2023-03-13 16:10 | PM.EVENT ---
Event Note Date of Service: 03/14/23 Event Note: Patient seen postop on afternoon rounds Says he has pain on incision, although better than earlier Abdomen soft Hypertensive on vital signs I have consulted the hospitalist service because of this Anticipate poor pain control in view of him being on suboxone I have switched him to dilaudid mg every 2 hours p.r.n. for pain Urine output now clear Time Spent With Patient Time: Total time managing care of this patient today ____ minutes.
[2023-03-13 16:48] LABS: Glucose, Whole Blood 163 mg/dL (60-115)
[2023-03-13] MEDS: amLODIPine Besylate 10 MG TABLET PO (17:51)
--- NOTE | 2023-03-13 17:54 | PC.NURSE ---
BP elevated ,dose of Hydralazine IV was administered,NAKUL Ojeda aware,BP came down [id number] down to 177/80.BP at present 180/84 ,Norvasc dose administered as ordered
[2023-03-13] MEDS: HYDROmorphone HCl 1 MG/ML SYRINGE IVPUSH ×3 (18:12→23:56)
[2023-03-13] MEDS: oxyCODONE HCl Immed Release 5 MG TABLET PO (19:31)
[2023-03-13 20:46] LABS: Glucose, Whole Blood 183 mg/dL (60-115)
[2023-03-13] MEDS: Insulin Lispro 100 UNIT/ML 3 ML VIAL SUBCUT (21:20)
--- NOTE | 2023-03-13 22:15 | PC.NURSE ---
BP 173/80 pulse 78,PA Lynette notified,BP will be monitored q 4 hrs
[2023-03-14] MEDS: 0.9 % Sodium Chloride Flush 3 ML SYRINGE IVFLUSH (00:01)
[2023-03-14] MEDS: HYDROmorphone HCl 1 MG/ML SYRINGE IVPUSH ×6 (02:36→20:28)
[2023-03-14 03:09] VITALS: BP 166/90; PULSE 92; RESP 20; TEMP 36.4; O2SAT 94
[2023-03-14] MEDS: Lactated Ringers 1,000 ML 100 ML IVCONT ×2 (04:05→14:25)
[2023-03-14] MEDS: Acetaminophen 1,000 MG/100 ML PIGGYBACK 400 MG IV ×4 (04:09→22:13)
[2023-03-14] MEDS: oxyCODONE HCl Immed Release 5 MG TABLET PO ×2 (04:11→09:31)
[2023-03-14 07:03] LABS: Glucose, Whole Blood 171 mg/dL (60-115)
[2023-03-14 07:13] LABS: MANUAL DIFF FLAG NO
[2023-03-14 07:18] LABS: Basophils Percent Auto 0.3 % (0-2); Hematocrit 35.1 % (42.0-52.0); Hemoglobin 11.8 g/dl (14.0-18.0); Imm Gran Abs Auto 0.03 X10*3/uL (0.00-0.03); Imm Gran Pct Auto 0.3 % (0.0-0.4); Lymphocytes Absolute Auto 0.7 X10*3/uL (1.2-4.9); Lymphocytes Percent Auto 7.2 % (20-40); Mean Corpuscular HGB Conc 33.6 g/dl (31.0-36.0); Mean Corpuscular Hemoglobin 31.1 pg (27.0-33.0); Mean Corpuscular Volume 92.4 fL (80.0-98.0); Monocytes Absolute Auto 0.5 X10*3/uL (0.1-1.2); Monocytes Percent Auto 4.7 % (2-11); Neutrophils Absolute Auto 8.4 x10*3/uL (2.0-8.3); Neutrophils Percent Auto 87.5 % (45-73); Platelet Count 154 X10*3/uL (160-400); Red Cell Distribution Width 13.5 % (11.0-16.0); White Blood Count 9.6 X10*3/uL (4.8-10.8)
[2023-03-14 07:31] LABS: Anion Gap 13 (12-20); Blood Urea Nitrogen 9 mg/dL (9-16); Calcium 8.4 mg/dL (8.4-10.2); Carbon Dioxide 24 mmol/L (22-29); Chloride 101 mmol/L (96-108); Creatinine Clr Calc Pharmacy 100.4; Estimated Glomerular Filt Rate > 60; Glucose Random 172 mg/dL (60-115); Potassium 4.2 mmol/L (3.3-5.1); Sodium 134 mmol/L (135-145)
[2023-03-14 07:34] VITALS: BP 148/72; PULSE 90; RESP 16; TEMP 36.2; O2SAT 96
--- NOTE | 2023-03-14 07:56 | P.PNGS_ITS ---
Subjective Subjective Date of Service: 03/14/23 <Katrina Kaba PA-C - Last Filed: 03/14/23 08:00> 03/14/23 <Don Fiore MD - Last Filed: 03/14/23 10:20> Interval history: C/o incisional pain. Relieved by dilaudid but it wears off quickly. Has some nausea. Denies passing flatus. <Katrina Kaba PA-C - Last Filed: 03/14/23 08:00> Physical Exam Vital Signs: Vital Signs: Last Vital Signs Temp 97.2 F 03/14/23 07:34 Pulse 90 03/14/23 07:34 Resp 16 03/14/23 07:34 BP 148/72 H 03/14/23 07:34 Pulse Ox 96 03/14/23 07:34 O2 Del Method Nasal Cannula 03/14/23 07:34 O2 Flow Rate 2 03/14/23 07:34 BMI result Body Mass Index 35.1 <Katrina Kaba PA-C - Last Filed: 03/14/23 08:00> Const: General: comfortable, no acute distress and alert <Katrina Kaba PA-C - Last Filed: 03/14/23 08:00> Orientation/consciousness: patient oriented x3 <BRITTANY Guerrero Last Filed: 03/14/23 08:00> Resp: Effort & Inspection: normal respiratory effort <Katrina Kaba PA-C - Last Filed: 03/14/23 08:00> GI: Inspection: No distended and Yes incision (dressings c/d/i) <Katrina Kaba PA-C - Last Filed: 03/14/23 08:00> Palpation (GI): Soft to palpation, Tenderness to palpation present (GI) (mild incisional), no guarding and not rigid <BRITTANY Guerrero Last Filed: 03/14/23 08:00> Percussion: Yes normal to percussion <BRITTANY Guerrero Last Filed: 03/14/23 08:00> Skin: General skin exam: no rashes or lesions noted <BRITTANY Guerrero Last Filed: 03/14/23 08:00> Neuro: General: patient oriented x3 and moves all extremities <Katrina Kaba PA-C - Last Filed: 03/14/23 08:00> Objective Data Active Medications Amlodipine Besylate (Amlodipine Besylate 10 Mg Tablet) 10 mg PO DAILY [facility]; Protocol Last Admin: 03/13/23 17:51 Dose: 10 mg Documented By: LORA Buprenorphine/Naloxone (Buprenorphine/Naloxone 2/0.5mg Film) 1 film SUBLINGUAL DAILY [facility] Dextrose (Dextrose 50 % 25 Gm/50 Ml Syringe) 25 gm IVPUSH Q15M PRN; Protocol PRN Reason: per Hypoglycemia Standing Ord. Glucose (Glucose Gel 15 Gm Gel..Gram.) 15 gm PO Q15M PRN; Protocol PRN Reason: per Hypoglycemia Standing Ord. Heparin Sodium (Porcine) (Heparin Sodium,Porcine 5,000 Unit/Ml Vial) 5,000 unit SUBCUT Q8H [facility] Hydromorphone HCl (Hydromorphone Hcl 1 Mg/Ml Syringe) 1 mg IVPUSH Q2H PRN; Protocol PRN Reason: Pain, Severe (Pain Scale 7-10) Last Admin: 03/14/23 06:06 Dose: 1 mg Documented By: APRIL Lactated Ringer's (Lr) 1,000 mls @ 100 mls/hr IVCONT .Q10H [facility] Last Admin: 03/14/23 04:05 Dose: 100 mls/hr Documented By: APRIL Acetaminophen (Ofirmev) 1,000 mg in 100 mls @ 400 mls/hr IV Q6H [facility] Last Infusion: 03/14/23 04:24 Dose: 0 mls/hr Documented By: APRIL Insulin Human Lispro (Insulin Lispro 100 Unit/Ml 3 Ml Vial) 0 unit SUBCUT QIDACHS [facility]; Protocol Last Admin: 03/13/23 21:20 Dose: 2 unit Documented By: LORA Lisinopril (Lisinopril 10 Mg Tablet) 10 mg PO DAILY [facility]; Protocol Ondansetron HCl (Ondansetron Hcl 4 Mg/2 Ml Vial) 4 mg IVPUSH Q8H PRN PRN Reason: Nausea and Vomiting Oxycodone HCl (Oxycodone Hcl Immed Release 5 Mg Tablet) 5 mg PO Q4H PRN PRN Reason: Pain, Moderate(Pain Scale 4-6) Last Admin: 03/14/23 04:11 Dose: 5 mg Documented By: APRIL Sodium Chloride (0.9 % Sodium Chloride Flush 3 Ml Syringe) 3 ml IVFLUSH QSHIFT [facility] Last Admin: 03/14/23 00:01 Dose: 3 ml Documented By: APRIL <Katrina Kaba PA-C - Last Filed: 03/14/23 08:00> Labs CBC & Chem 7: 03/14/23 05:56 03/14/23 05:56 <Katrina Kaba PA-C - Last Filed: 03/14/23 08:00> Labs: Laboratory Results - last 24 hr 03/13/23 03/13/23 03/14/23 16:30 20:38 05:56 MCV 92.4 MCH 31.1 MCHC 33.6 RDW 13.5 Plt Count 154 L MPV 11.0 Immature Gran % (Auto) 0.3 Neut % (Auto) 87.5 H Lymph % (Auto) 7.2 L [place] % (Auto) 4.7 Eos % (Auto) 0.0 Baso % (Auto) 0.3 Lymph # (Auto) 0.7 L [place] # (Auto) 0.5 Eos # (Auto) 0.0 Baso # (Auto) 0.0 Abs Immat Gran (auto) 0.03 Absolute Neuts (auto) 8.4 H Absolute Nucleated RBC 0.000 Nucleated RBC % (auto) 0.0 Anion Gap Estim Creat Clear Calc Estimated GFR POC Glucose 163 H 183 H Random Glucose Calcium 03/14/23 03/14/23 05:56 06:53 MCV MCH MCHC RDW Plt Count MPV Immature Gran % (Auto) Neut % (Auto) Lymph % (Auto) [place] % (Auto) Eos % (Auto) Baso % (Auto) Lymph # (Auto) [place] # (Auto) Eos # (Auto) Baso # (Auto) Abs Immat Gran (auto) Absolute Neuts (auto) Absolute Nucleated RBC Nucleated RBC % (auto) Anion Gap 13 Estim Creat Clear Calc 100.4 Estimated GFR > 60 POC Glucose 171 H Random Glucose 172 H Calcium 8.4 D <Katrina Kaba PA-C - Last Filed: 03/14/23 08:00> Procedures Date of Service Date of Service: 03/14/23 <Katrina Kaba PA-C - Last Filed: 03/14/23 08:00> 03/14/23 <Don Fiore MD - Last Filed: 03/14/23 10:20> Progress Note: A&P Assessment and plan (1) S/P right colectomy: Status: Acute <Katrina Kaba PA-C - Last Filed: 03/14/23 08:00> Assessment and Plan: Complaints of incisional pain and some nausea Denies flatus Says he gets pain from Dilaudid Looks well Abdomen soft Dressings dry Urine output clear Okay to DC Mota Encouraged to get out of bed Await return of GI function Seen and examined independently Anticipate challenges with pain management in view of Suboxone use <Don Fiore MD - Last Filed: 03/14/23 10:20> Assessment and Plan: 68 year old male POD #1 s/p Hand assisted laparoscopic right colon resection for right colon CA. Doing fairly well post op but some difficulty with pain control. Will be difficult in view of his suboxone. VSS. Abd benign with appropriate post op tenderness, dressings clean and intact. Had hematuria intraop which has resolved. Dc mota today. Encouraged OOB/ambulation and IS use. Will keep on clears for now until nausea resolved. Await GI function. AM labs reviewed. Hospitalists following. <Katrina Kaba PA-C - Last Filed: 03/14/23 08:00> Time Spent With Patient Time: Total time managing care of this patient today ____ minutes. <Katrina Kaba PA-C - Last Filed: 03/14/23 08:00> Quality Stroke Does the patient have a stroke diagnosis?: No <Katrina Kaba PA-C - Last Filed: 03/14/23 08:00> VTE Prior VTE?: No <Katrina Kaba PA-C - Last Filed: 03/14/23 08:00> VTE Risk Level:: Surgical - high <BRITTANY Guerrero Last Filed: 03/14/23 08:00> VTE Device Contraindication: N/A - Device Ordered <Katrina Kaba PA-C - Last Filed: 03/14/23 08:00> VTE Drug Contraindication: N/A - Med Ordered <Katrina Kaba PA-C - Last Filed: 03/14/23 08:00>
[2023-03-14] MEDS: Heparin Sodium,Porcine 5,000 UNIT/ML VIAL 5000 UNIT SUBCUT ×2 (08:48→18:21)
[2023-03-14] MEDS: Buprenorphine/Naloxone 2/0.5mg FILM 1 FILM SUBLINGUAL (08:49)
[2023-03-14] MEDS: amLODIPine Besylate 10 MG TABLET PO (08:49)
[2023-03-14] MEDS: Insulin Lispro 100 UNIT/ML 3 ML VIAL SUBCUT (08:49)
[2023-03-14] MEDS: lisinopriL 10 MG TABLET PO (08:49)
[2023-03-14 11:26] LABS: Glucose, Whole Blood 167 mg/dL (60-115)
[2023-03-14 12:03] VITALS: BMI 35.1
--- NOTE | 2023-03-14 13:46 | P.PNIM_ITS ---
Subjective Subjective Date of Service: 03/14/23 Interval History: htn,colon cancer Review of Systems s/p colon surgery-Hand assisted laparoscopic right colon resection 03/13 some pain at incison area no fever or chills Physical Exam Vital Signs: Vital Signs: Last Vital Signs Temp 97.2 F 03/14/23 07:34 Pulse 90 03/14/23 07:34 Resp 16 03/14/23 07:34 BP 148/72 H 03/14/23 07:34 Pulse Ox 96 03/14/23 07:34 O2 Del Method Nasal Cannula 03/14/23 07:34 O2 Flow Rate 2 03/14/23 07:34 BMI result Body Mass Index 35.1 Appearance: Alert.? Oriented X3.? not in distress.? cvs: rrr, [id number]. res: clear to auscultation ,no rhonchii or wheezing abd: no rebound or guarding ,soarness at incison area , abd soft. ext pulses present , no cyanosis . neuro: axo3 , nonfocal. Objective Data Active Medications Amlodipine Besylate (Amlodipine Besylate 10 Mg Tablet) 10 mg PO DAILY [facility]; Protocol Last Admin: 03/14/23 08:49 Dose: 10 mg Documented By: DEZ Buprenorphine/Naloxone (Buprenorphine/Naloxone 2/0.5mg Film) 1 film SUBLINGUAL DAILY [facility] Last Admin: 03/14/23 08:49 Dose: 1 film Documented By: DEZ Dextrose (Dextrose 50 % 25 Gm/50 Ml Syringe) 25 gm IVPUSH Q15M PRN; Protocol PRN Reason: per Hypoglycemia Standing Ord. Glucose (Glucose Gel 15 Gm Gel..Gram.) 15 gm PO Q15M PRN; Protocol PRN Reason: per Hypoglycemia Standing Ord. Heparin Sodium (Porcine) (Heparin Sodium,Porcine 5,000 Unit/Ml Vial) 5,000 unit SUBCUT Q8H [facility] Last Admin: 03/14/23 08:48 Dose: 5,000 unit Documented By: DEZ Hydromorphone HCl (Hydromorphone Hcl 1 Mg/Ml Syringe) 1 mg IVPUSH Q2H PRN; Protocol PRN Reason: Pain, Severe (Pain Scale 7-10) Last Admin: 03/14/23 12:14 Dose: 1 mg Documented By: DEZ Lactated Ringer's (Lr) 1,000 mls @ 100 mls/hr IVCONT .Q10H [facility] Last Admin: 03/14/23 04:05 Dose: 100 mls/hr Documented By: APRIL Acetaminophen (Ofirmev) 1,000 mg in 100 mls @ 400 mls/hr IV Q6H [facility] Last Infusion: 03/14/23 09:18 Dose: 0 mls/hr Documented By: DEZ Insulin Human Lispro (Insulin Lispro 100 Unit/Ml 3 Ml Vial) 0 unit SUBCUT QIDACHS [facility]; Protocol Last Admin: 03/14/23 12:05 Dose: Not Given Documented By: DEZ Non-Admin Reason: No Insulin Coverage Lisinopril (Lisinopril 10 Mg Tablet) 10 mg PO DAILY [facility]; Protocol Last Admin: 03/14/23 08:49 Dose: 10 mg Documented By: DEZ Ondansetron HCl (Ondansetron Hcl 4 Mg/2 Ml Vial) 4 mg IVPUSH Q8H PRN PRN Reason: Nausea and Vomiting Oxycodone HCl (Oxycodone Hcl Immed Release 5 Mg Tablet) 10 mg PO Q4H PRN PRN Reason: Pain, Moderate(Pain Scale 4-6) Sodium Chloride (0.9 % Sodium Chloride Flush 3 Ml Syringe) 3 ml IVFLUSH QSHIFT [facility] Last Admin: 03/14/23 08:50 Dose: Not Given Documented By: DEZ Non-Admin Reason: IV Running Labs 03/14/23 05:56 03/14/23 05:56 Labs: Laboratory Results - last 24 hr 03/13/23 03/13/23 03/14/23 16:30 20:38 05:56 MCV 92.4 MCH 31.1 MCHC 33.6 RDW 13.5 Plt Count 154 L MPV 11.0 Immature Gran % (Auto) 0.3 Neut % (Auto) 87.5 H Lymph % (Auto) 7.2 L [place] % (Auto) 4.7 Eos % (Auto) 0.0 Baso % (Auto) 0.3 Lymph # (Auto) 0.7 L [place] # (Auto) 0.5 Eos # (Auto) 0.0 Baso # (Auto) 0.0 Abs Immat Gran (auto) 0.03 Absolute Neuts (auto) 8.4 H Absolute Nucleated RBC 0.000 Nucleated RBC % (auto) 0.0 Anion Gap Estim Creat Clear Calc Estimated GFR POC Glucose 163 H 183 H Random Glucose Calcium 03/14/23 03/14/23 03/14/23 05:56 06:53 11:19 MCV MCH MCHC RDW Plt Count MPV Immature Gran % (Auto) Neut % (Auto) Lymph % (Auto) [place] % (Auto) Eos % (Auto) Baso % (Auto) Lymph # (Auto) [place] # (Auto) Eos # (Auto) Baso # (Auto) Abs Immat Gran (auto) Absolute Neuts (auto) Absolute Nucleated RBC Nucleated RBC % (auto) Anion Gap 13 Estim Creat Clear Calc 100.4 Estimated GFR > 60 POC Glucose 171 H 167 H Random Glucose 172 H Calcium 8.4 D Assessment and Plan (1) Hypertension: Status: Acute Plan 68 year old male with history of htn, nub-[id number] type 2 diabetes, opiate use disorder, colon cancer, and history of alcohol dependence admitted to general surgery with consult placed hospitalist Medicine for medical management with concern for hypertension. Colon cancer-s/p colon surgery-Hand assisted laparoscopic right colon resection 03/13 pain control-dilaudid/oxycodone clears for now until nausea resolved. Await GI function. HTN:blood pressure improving Continue lisinopril 10mg and added amlodipine 10 mg PO. -Monitor BP closely bgv-qqrlyxl-[id number] type 2 diabetes-fs acceptable. -POC glucose -advanced a diabetic diet -Humalog on sliding scale, hold metformin. substance use dis: on subaxone. Time Spent With Patient Time: Total time managing care of this patient today ____ minutes. Quality Stroke Does the patient have a stroke diagnosis?: No VTE Prior VTE?: No VTE Risk Level:: Surgical - high VTE Device Contraindication: N/A - Device Ordered VTE Drug Contraindication: N/A - Med Ordered
--- NOTE | 2023-03-14 13:52 | HO.POSTANES ---
Post Anesthesia Evaluation Post Anesthesia Evaluation Date of Service: 03/14/23 Vital Signs: Vital Signs Temp Pulse Resp BP Pulse Ox O2 Del Method O2 Flow Rate 03/14/23 07:34 97.2 F 90 16 148/72 H 96 Nasal Cannula 2 03/14/23 03:09 97.6 F 92 20 166/90 H 94 Nasal Cannula 2 Anesthesia: General Endotracheal-GETA Mental Status: Awake Pain Control: Satisfactory (incisional pain) Nausea/Vomiting: Mild Hydration: Adequate Anesthesia-Related Issues: No Anes. Related Issues
[2023-03-14] MEDS: oxyCODONE HCl Immed Release 5 MG TABLET 10 MG PO ×3 (14:37→22:51)
[2023-03-14 15:52] VITALS: BP 159/61; PULSE 77; RESP 17; TEMP 36.5; O2SAT 94
--- NOTE | 2023-03-14 16:16 | MHC.CM.PN ---
pt lives alone has own ride he had no previous servceis it is uncertain at this time what his dc nbeeds will be /vna dc plan tbd cm will continue to follow
[2023-03-14 16:41] LABS: Glucose, Whole Blood 165 mg/dL (60-115)
[2023-03-14 19:25] VITALS: BP 167/79; PULSE 81; RESP 17; TEMP 36.6; O2SAT 94
[2023-03-14 19:49] LABS: Glucose, Whole Blood 160 mg/dL (60-115)
[2023-03-15] MEDS: HYDROmorphone HCl 1 MG/ML SYRINGE IVPUSH ×5 (00:06→20:59)
[2023-03-15] MEDS: Lactated Ringers 1,000 ML 100 ML IVCONT ×4 (00:06→21:04)
[2023-03-15] MEDS: Heparin Sodium,Porcine 5,000 UNIT/ML VIAL 5000 UNIT SUBCUT ×3 (00:49→17:53)
[2023-03-15 04:00] VITALS: BP 150/62; PULSE 80; RESP 17; TEMP 36.2; O2SAT 94
[2023-03-15] MEDS: oxyCODONE HCl Immed Release 5 MG TABLET 10 MG PO ×3 (05:54→23:02)
[2023-03-15] MEDS: Acetaminophen 1,000 MG/100 ML PIGGYBACK 400 MG IV ×4 (05:55→22:09)
[2023-03-15 07:24] LABS: Glucose, Whole Blood 155 mg/dL (60-115)
[2023-03-15 07:36] VITALS: BP 177/84; PULSE 80; RESP 16; TEMP 36.4; O2SAT 94
--- NOTE | 2023-03-15 07:59 | P.PNGS_ITS ---
Subjective Subjective Date of Service: 03/15/23 <Katrina Kaba PA-C - Last Filed: 03/15/23 08:07> 03/15/23 <Don Fiore MD - Last Filed: 03/15/23 10:13> Interval history: Feels a little better this morning but had a rough night with pain. Feels dilaudid wears off too soon. Ice packs helping. Has been OOB to recliner and bathroom. Denies flatus. Continues to have some nausea. <Katrina Kaba PA-C - Last Filed: 03/15/23 08:07> Physical Exam Vital Signs: Vital Signs: Last Vital Signs Temp 97.6 F 03/15/23 07:36 Pulse 80 03/15/23 07:36 Resp 16 03/15/23 07:36 BP 177/84 H 03/15/23 07:36 Pulse Ox 94 03/15/23 07:36 O2 Del Method Room Air 03/15/23 07:36 O2 Flow Rate 2 03/14/23 07:34 BMI result Body Mass Index 35.1 <Katrina Kaba PA-C - Last Filed: 03/15/23 08:07> Const: General: comfortable, no acute distress and alert <BRITTANY Guerrero Last Filed: 03/15/23 08:07> Orientation/consciousness: patient oriented x3 <Katrina Kaba PA-C - Last Filed: 03/15/23 08:07> Resp: Effort & Inspection: normal respiratory effort <Katrina Kaba PA-C - Last Filed: 03/15/23 08:07> GI: Inspection: No distended and Yes incision (clean) <BRITTANY Guerrero Last Filed: 03/15/23 08:07> Palpation (GI): Soft to palpation, Tenderness to palpation present (GI) (incisional), no guarding and not rigid <BRITTANY Guerrero Last Filed: 03/15/23 08:07> Percussion: Yes normal to percussion <BRITTANY Guerrero Last Filed: 03/15/23 08:07> Skin: General skin exam: no rashes or lesions noted and jaundice <Katrina Kaba PA-C - Last Filed: 03/15/23 08:07> Neuro: General: patient oriented x3 and moves all extremities <Katrina Kaba PA-C - Last Filed: 03/15/23 08:07> Objective Data Active Medications Amlodipine Besylate (Amlodipine Besylate 10 Mg Tablet) 10 mg PO DAILY [facility]; Protocol Last Admin: 03/14/23 08:49 Dose: 10 mg Documented By: DEZ Buprenorphine/Naloxone (Buprenorphine/Naloxone 2/0.5mg Film) 1 film SUBLINGUAL DAILY [facility] Last Admin: 03/14/23 08:49 Dose: 1 film Documented By: DEZ Dextrose (Dextrose 50 % 25 Gm/50 Ml Syringe) 25 gm IVPUSH Q15M PRN; Protocol PRN Reason: per Hypoglycemia Standing Ord. Glucose (Glucose Gel 15 Gm Gel..Gram.) 15 gm PO Q15M PRN; Protocol PRN Reason: per Hypoglycemia Standing Ord. Heparin Sodium (Porcine) (Heparin Sodium,Porcine 5,000 Unit/Ml Vial) 5,000 unit SUBCUT Q8H [facility] Last Admin: 03/15/23 00:49 Dose: 5,000 unit Documented By: CHANTAL Hydromorphone HCl (Hydromorphone Hcl 1 Mg/Ml Syringe) 1 mg IVPUSH Q2H PRN; Protocol PRN Reason: Pain, Severe (Pain Scale 7-10) Last Admin: 03/15/23 04:00 Dose: 1 mg Documented By: CHANTAL Lactated Ringer's (Lr) 1,000 mls @ 100 mls/hr IVCONT .Q10H [facility] Last Admin: 03/15/23 00:06 Dose: 100 mls/hr Documented By: CHANTAL Acetaminophen (Ofirmev) 1,000 mg in 100 mls @ 400 mls/hr IV Q6H [facility] Last Infusion: 03/15/23 06:10 Dose: 0 mls/hr Documented By: CHANTAL Insulin Human Lispro (Insulin Lispro 100 Unit/Ml 3 Ml Vial) 0 unit SUBCUT QIDACHS [facility]; Protocol Last Admin: 03/15/23 07:33 Dose: Not Given Documented By: ADELA Non-Admin Reason: No Insulin Coverage Lisinopril (Lisinopril 10 Mg Tablet) 10 mg PO DAILY [facility]; Protocol Last Admin: 03/14/23 08:49 Dose: 10 mg Documented By: DEZ Ondansetron HCl (Ondansetron Hcl 4 Mg/2 Ml Vial) 4 mg IVPUSH Q8H PRN PRN Reason: Nausea and Vomiting Oxycodone HCl (Oxycodone Hcl Immed Release 5 Mg Tablet) 10 mg PO Q4H PRN PRN Reason: Pain, Moderate(Pain Scale 4-6) Last Admin: 03/15/23 05:54 Dose: 10 mg Documented By: CHANTAL Sodium Chloride (0.9 % Sodium Chloride Flush 3 Ml Syringe) 3 ml IVFLUSH QSHIFT [facility] Last Admin: 03/15/23 07:33 Dose: Not Given Documented By: ADELA Non-Admin Reason: IV Running <Katrina Kaba PA-C - Last Filed: 03/15/23 08:07> Labs CBC & Chem 7: 03/14/23 05:56 03/14/23 05:56 <Katrina Kaba PA-C - Last Filed: 03/15/23 08:07> Labs: Laboratory Results - last 24 hr 03/14/23 03/14/23 03/14/23 11:19 16:35 19:23 POC Glucose 167 H 165 H 160 H 03/15/23 07:10 POC Glucose 155 H <Katrina Kaba PA-C - Last Filed: 03/15/23 08:07> Procedures Date of Service Date of Service: 03/15/23 <Katrina Kaba PA-C - Last Filed: 03/15/23 08:07> 03/15/23 <Don Fiore MD - Last Filed: 03/15/23 10:13> Progress Note: A&P Assessment and plan (1) S/P right colectomy: Status: Acute <Katrina Kaba PA-C - Last Filed: 03/15/23 08:07> Assessment and Plan: Has incisional pain but seems to have adequate control Denies flatus Tolerating clear liquids Abdomen soft Incision clean Continue pain management Encouraged to get out keep on clears for now Await full return of GI function Seen and examined independently <Don Fiore MD - Last Filed: 03/15/23 10:13> (2) Colon cancer: Status: Acute <Katrina Kaba PA-C - Last Filed: 03/15/23 08:07> Assessment and Plan: ?68 year old male POD #2 s/p Hand assisted laparoscopic right colon resection for right colon CA. Pain still an issue, on suboxone. VSS. Abd benign with appropriate post op tenderness, incision clean. Encouraged OOB/ambulation and IS use. Will keep on clears for now until nausea resolved and some evidence of GI function. Await GI function. Hospitalists following.?? <Katrina Kaba PA-C - Last Filed: 03/15/23 08:07> Time Spent With Patient Time: Total time managing care of this patient today ____ minutes. <Katrina Kaba PA-C - Last Filed: 03/15/23 08:07> Quality Stroke Does the patient have a stroke diagnosis?: No <Katrina Kaba PA-C - Last Filed: 03/15/23 08:07> VTE Prior VTE?: No <Katrina Kaba PA-C - Last Filed: 03/15/23 08:07> VTE Risk Level:: Surgical - high <Katrina Kaba PA-C - Last Filed: 03/15/23 08:07> VTE Device Contraindication: N/A - Device Ordered <Katrina Kaba PA-C - Last Filed: 03/15/23 08:07> VTE Drug Contraindication: N/A - Med Ordered <Katrina Kaba PA-C - Last Filed: 03/15/23 08:07>
[2023-03-15] MEDS: amLODIPine Besylate 10 MG TABLET PO (09:01)
[2023-03-15] MEDS: Buprenorphine/Naloxone 2/0.5mg FILM 1 FILM SUBLINGUAL (09:01)
[2023-03-15] MEDS: lisinopriL 10 MG TABLET PO (09:01)
--- NOTE | 2023-03-15 09:47 | P.PNIM_ITS ---
Subjective Subjective Date of Service: 03/15/23 Interval History: htn,colon cancer Review of Systems s/p colon surgery-Hand assisted laparoscopic right colon resection 03/13 some pain at incison area no fever or chills now Physical Exam Vital Signs: Vital Signs: Last Vital Signs Temp 97.6 F 03/15/23 07:36 Pulse 80 03/15/23 07:36 Resp 16 03/15/23 07:36 BP 177/84 H 03/15/23 07:36 Pulse Ox 94 03/15/23 07:36 O2 Del Method Room Air 03/15/23 07:36 O2 Flow Rate 2 03/14/23 07:34 BMI result Body Mass Index 35.1 Appearance: Alert.? Oriented X3.? not in distress.? cvs: rrr, [id number]. res: clear to auscultation ,no rhonchii or wheezing abd: no rebound or guarding ,soarness at incison area , abd soft. ext pulses present , no cyanosis . neuro: axo3 , nonfocal. Objective Data Active Medications Amlodipine Besylate (Amlodipine Besylate 10 Mg Tablet) 10 mg PO DAILY [facility]; Protocol Last Admin: 03/15/23 09:01 Dose: 10 mg Documented By: ADELA Buprenorphine/Naloxone (Buprenorphine/Naloxone 2/0.5mg Film) 1 film SUBLINGUAL DAILY [facility] Last Admin: 03/15/23 09:01 Dose: 1 film Documented By: ADELA Dextrose (Dextrose 50 % 25 Gm/50 Ml Syringe) 25 gm IVPUSH Q15M PRN; Protocol PRN Reason: per Hypoglycemia Standing Ord. Glucose (Glucose Gel 15 Gm Gel..Gram.) 15 gm PO Q15M PRN; Protocol PRN Reason: per Hypoglycemia Standing Ord. Heparin Sodium (Porcine) (Heparin Sodium,Porcine 5,000 Unit/Ml Vial) 5,000 unit SUBCUT Q8H [facility] Last Admin: 03/15/23 09:01 Dose: 5,000 unit Documented By: ADELA Hydromorphone HCl (Hydromorphone Hcl 1 Mg/Ml Syringe) 1 mg IVPUSH Q2H PRN; Protocol PRN Reason: Pain, Severe (Pain Scale 7-10) Last Admin: 03/15/23 09:05 Dose: 1 mg Documented By: ADELA Lactated Ringer's (Lr) 1,000 mls @ 100 mls/hr IVCONT .Q10H [facility] Last Admin: 03/15/23 09:02 Dose: 100 mls/hr Documented By: ADELA Acetaminophen (Ofirmev) 1,000 mg in 100 mls @ 400 mls/hr IV Q6H [facility] Last Infusion: 03/15/23 09:18 Dose: 0 mls/hr Documented By: ADELA Insulin Human Lispro (Insulin Lispro 100 Unit/Ml 3 Ml Vial) 0 unit SUBCUT QIDACHS [facility]; Protocol Last Admin: 03/15/23 07:33 Dose: Not Given Documented By: ADELA Non-Admin Reason: No Insulin Coverage Lisinopril (Lisinopril 10 Mg Tablet) 10 mg PO DAILY [facility]; Protocol Last Admin: 03/15/23 09:01 Dose: 10 mg Documented By: ADELA Ondansetron HCl (Ondansetron Hcl 4 Mg/2 Ml Vial) 4 mg IVPUSH Q8H PRN PRN Reason: Nausea and Vomiting Oxycodone HCl (Oxycodone Hcl Immed Release 5 Mg Tablet) 10 mg PO Q4H PRN PRN Reason: Pain, Moderate(Pain Scale 4-6) Last Admin: 03/15/23 05:54 Dose: 10 mg Documented By: CHANTAL Sodium Chloride (0.9 % Sodium Chloride Flush 3 Ml Syringe) 3 ml IVFLUSH QSHIFT [facility] Last Admin: 03/15/23 07:33 Dose: Not Given Documented By: ADELA Non-Admin Reason: IV Running Labs 03/14/23 05:56 03/14/23 05:56 Labs: Laboratory Results - last 24 hr 03/14/23 03/14/23 03/14/23 11:19 16:35 19:23 POC Glucose 167 H 165 H 160 H 03/15/23 07:10 POC Glucose 155 H Assessment and Plan (1) Hypertension: Status: Acute Plan 68 year old male with history of htn, oor-zijwlkp-yjgzndhbl type 2 diabetes, opiate use disorder, colon cancer, and history of alcohol dependence admitted to general surgery with consult placed hospitalist Medicine for medical management with concern for hypertension. Colon cancer-s/p colon surgery-Hand assisted laparoscopic right colon resection 03/13 pain control-dilaudid/oxycodone clears for now until nausea resolved. Await GI function. HTN:blood pressure improving Continue lisinopril 10mg and added amlodipine 10 mg PO. -Monitor BP closely bod-qccqwdr-qqbmacqzq type 2 diabetes-fs acceptable. -POC glucose -advanced a diabetic diet -Humalog on sliding scale, hold metformin. substance use dis: on subaxone. dispo -as per primary team Time Spent With Patient Time: Total time managing care of this patient today ____ minutes. Quality Stroke Does the patient have a stroke diagnosis?: No VTE Prior VTE?: No VTE Risk Level:: Surgical - high VTE Device Contraindication: N/A - Device Ordered VTE Drug Contraindication: N/A - Med Ordered
--- NOTE | 2023-03-15 10:18 | P.CDIM_ITS ---
PROVIDER RESPONSE TEXT: To clarify, the appropriate diagnosis supported by the clinical indicators: Obesity Due to excess calories QUERY TEXT: PHYSICIAN'S DOCUMENTATION REQUEST Date of Query: 03/14/2023 01:13 PM EDT Patient Name: Andrea Cooper Admit Date: 03/13/2023 Dear Don Fiore, A review of the medical record indicates additional documentation may be needed. Please review below and update the documentation accordingly. Clinical Indicators: Clinical nutrition notes: 03/14 - Obesity class II with BMI 35.1 114.305kg 5ft 11in If possible, please provide an associated diagnosis related to the abnormal BMI, such as: Overweight Obesity Due to excess calories Obesity Due to other cause Specify the other cause Other (explain)Clinically unable to determine (explain)Thank you, Anna Ramirez, CCS, CDIS Use of terms such as suspected, likely, concern for, or probable (associated with a specific diagnosi s that is being evaluated, monitored, or treated as if it exists) are acceptable and can be coded in the inpatient se tting, when documented at the time of discharge. Please use your independent medical judgment in providing your response. THIS QUERY IS PART OF THE PERMANENT MEDICAL RECORD
[2023-03-15 11:26] LABS: Glucose, Whole Blood 160 mg/dL (60-115)
[2023-03-15 15:13] VITALS: BP 162/88; PULSE 77; RESP 15; TEMP 36.2; O2SAT 94
[2023-03-15 16:27] LABS: Glucose, Whole Blood 135 mg/dL (60-115)
[2023-03-15 19:43] VITALS: BP 160/75; PULSE 79; RESP 17; TEMP 36.6; O2SAT 95
[2023-03-15 20:29] LABS: Glucose, Whole Blood 154 mg/dL (60-115)
[2023-03-16] MEDS: HYDROmorphone HCl 1 MG/ML SYRINGE IVPUSH ×2 (01:00→07:57)
[2023-03-16] MEDS: Heparin Sodium,Porcine 5,000 UNIT/ML VIAL 5000 UNIT SUBCUT ×2 (01:46→10:22)
[2023-03-16 03:09] VITALS: BP 160/70; PULSE 81; RESP 17; TEMP 37; O2SAT 95
[2023-03-16] MEDS: Acetaminophen 1,000 MG/100 ML PIGGYBACK 400 MG IV ×4 (03:44→21:04)
[2023-03-16] MEDS: Lactated Ringers 1,000 ML 100 ML IVCONT (05:50)
[2023-03-16 07:30] VITALS: BP 186/103; PULSE 88; RESP 20; TEMP 36.4; O2SAT 95
[2023-03-16 07:31] LABS: Glucose, Whole Blood 178 mg/dL (60-115)
--- NOTE | 2023-03-16 07:54 | PM.PNGS ---
Subjective Subjective Date of Service: 03/16/23 <Katrina Kaba PA-C - Last Filed: 03/16/23 07:57> 03/16/23 <Don Fiore MD - Last Filed: 03/16/23 11:00> Interval history: C/o gas pains today. Began to pass a small amount of flatus. Has been ambulating. <Katrina Kaba PA-C - Last Filed: 03/16/23 07:57> Physical Exam Vital Signs: Vital Signs: Last Vital Signs Temp 97.6 F 03/16/23 07:30 Pulse 88 03/16/23 07:30 Resp 20 03/16/23 07:30 BP 186/103 H 03/16/23 07:30 Pulse Ox 95 03/16/23 07:30 O2 Del Method Room Air 03/16/23 07:30 O2 Flow Rate 2 03/14/23 07:34 BMI result Body Mass Index 35.1 <Katrina Kaba PA-C - Last Filed: 03/16/23 07:57> Const: General: comfortable, no acute distress and alert <Katrina Kaba PA-C - Last Filed: 03/16/23 07:57> Orientation/consciousness: patient oriented x3 <BRITTANY Guerrero Last Filed: 03/16/23 07:57> Resp: Effort & Inspection: normal respiratory effort <Katrina Kaba PA-C - Last Filed: 03/16/23 07:57> GI: Inspection: Yes distended and Yes incision (some mild erythema centrally, no drainage) <Katrina Kaba PA-C - Last Filed: 03/16/23 07:57> Palpation (GI): Soft to palpation, Tenderness to palpation present (GI) (mild incisional), no guarding and not rigid <BRITTANY Guerrero Last Filed: 03/16/23 07:57> Percussion: Yes tympanic to percussion <BRITTANY Guerrero Last Filed: 03/16/23 07:57> Skin: General skin exam: no rashes or lesions noted <BRITTANY Guerrero Last Filed: 03/16/23 07:57> Neuro: General: patient oriented x3 and moves all extremities <Katrina Kaba PA-C - Last Filed: 03/16/23 07:57> Objective Data Active Medications Amlodipine Besylate (Amlodipine Besylate 10 Mg Tablet) 10 mg PO DAILY [facility]; Protocol Last Admin: 03/15/23 09:01 Dose: 10 mg Documented By: ADELA Buprenorphine/Naloxone (Buprenorphine/Naloxone 2/0.5mg Film) 1 film SUBLINGUAL DAILY [facility] Last Admin: 03/15/23 09:01 Dose: 1 film Documented By: ADELA Dextrose (Dextrose 50 % 25 Gm/50 Ml Syringe) 25 gm IVPUSH Q15M PRN; Protocol PRN Reason: per Hypoglycemia Standing Ord. Glucose (Glucose Gel 15 Gm Gel..Gram.) 15 gm PO Q15M PRN; Protocol PRN Reason: per Hypoglycemia Standing Ord. Heparin Sodium (Porcine) (Heparin Sodium,Porcine 5,000 Unit/Ml Vial) 5,000 unit SUBCUT Q8H [facility] Last Admin: 03/16/23 01:46 Dose: 5,000 unit Documented By: DEREK Hydromorphone HCl (Hydromorphone Hcl 1 Mg/Ml Syringe) 1 mg IVPUSH Q2H PRN; Protocol PRN Reason: Pain, Severe (Pain Scale 7-10) Last Admin: 03/16/23 01:00 Dose: 1 mg Documented By: DEREK Lactated Ringer's (Lr) 1,000 mls @ 100 mls/hr IVCONT .Q10H [facility] Last Admin: 03/16/23 05:50 Dose: 100 mls/hr Documented By: DEREK Acetaminophen (Ofirmev) 1,000 mg in 100 mls @ 400 mls/hr IV Q6H [facility] Last Infusion: 03/16/23 04:05 Dose: 0 mls/hr Documented By: DEREK Insulin Human Lispro (Insulin Lispro 100 Unit/Ml 3 Ml Vial) 0 unit SUBCUT QIDACHS [facility]; Protocol Last Admin: 03/16/23 07:48 Dose: Not Given Documented By: ADELA Non-Admin Reason: No Insulin Coverage Lisinopril (Lisinopril 10 Mg Tablet) 10 mg PO DAILY [facility]; Protocol Last Admin: 03/15/23 09:01 Dose: 10 mg Documented By: ADELA Ondansetron HCl (Ondansetron Hcl 4 Mg/2 Ml Vial) 4 mg IVPUSH Q8H PRN PRN Reason: Nausea and Vomiting Oxycodone HCl (Oxycodone Hcl Immed Release 5 Mg Tablet) 10 mg PO Q4H PRN PRN Reason: Pain, Moderate(Pain Scale 4-6) Last Admin: 03/15/23 23:02 Dose: 10 mg Documented By: JEWEL Sodium Chloride (0.9 % Sodium Chloride Flush 3 Ml Syringe) 3 ml IVFLUSH QSHIFT [facility] Last Admin: 03/16/23 07:48 Dose: Not Given Documented By: ADELA Non-Admin Reason: IV Running <Katrina Kaba PA-C - Last Filed: 03/16/23 07:57> Labs CBC & Chem 7: 03/14/23 05:56 03/14/23 05:56 <Katrina Kaba PA-C - Last Filed: 03/16/23 07:57> Labs: Laboratory Results - last 24 hr 03/15/23 03/15/23 03/15/23 11:20 16:17 20:19 POC Glucose 160 H 135 H 154 H 03/16/23 07:21 POC Glucose 178 H <Katrina Kaba PA-C - Last Filed: 03/16/23 07:57> Procedures Date of Service Date of Service: 03/16/23 <Katrina Kaba PA-C - Last Filed: 03/16/23 07:57> 03/16/23 <Don Fiore MD - Last Filed: 03/16/23 11:00> Progress Note: A&P Assessment and plan (1) S/P right colectomy: Status: Acute <Katrina Kaba PA-C - Last Filed: 03/16/23 07:57> Assessment and Plan: says he has been passing flatus this AM tolerating clears ambulating asks for narcotics frequently abd soft incision clean decrease narcotics for pain continue Ofirmev ambulate slowly advance diet as tolerated when flatus more consistent looks well overall seen and examined independently <Don Fiore MD - Last Filed: 03/16/23 11:00> (2) Colon cancer: Status: Acute <Katrina Kaba PA-C - Last Filed: 03/16/23 07:57> Assessment and Plan: 68 year old male POD #3 s/p Hand assisted laparoscopic right colon resection for right colon CA. Now with gas pains, distended on exam. Passing small amount of flatus. Strongly encouraged to reduce narcotics, OOB/ambulate to promote GI function. Will keep on clears for now and advance once passing continous flatus. Patient comfortable with plan. <Katrina Kaba PA-C - Last Filed: 03/16/23 07:57> Time Spent With Patient Time: Total time managing care of this patient today ____ minutes. <Katrina Kaba PA-C - Last Filed: 03/16/23 07:57> Quality Stroke Does the patient have a stroke diagnosis?: No <Katrina Kaba PA-C - Last Filed: 03/16/23 07:57> VTE Prior VTE?: No <Katrina Kaba PA-C - Last Filed: 03/16/23 07:57> VTE Risk Level:: Surgical - high <Katrina Kaba PA-C - Last Filed: 03/16/23 07:57> VTE Device Contraindication: N/A - Device Ordered <Katrina Kaba PA-C - Last Filed: 03/16/23 07:57> VTE Drug Contraindication: N/A - Med Ordered <BRITTANY Guerrero Last Filed: 03/16/23 07:57>
[2023-03-16] MEDS: amLODIPine Besylate 10 MG TABLET PO (07:56)
[2023-03-16] MEDS: Buprenorphine/Naloxone 2/0.5mg FILM 1 FILM SUBLINGUAL (07:56)
[2023-03-16] MEDS: lisinopriL 10 MG TABLET PO (07:56)
[2023-03-16 11:23] LABS: Glucose, Whole Blood 171 mg/dL (60-115)
--- NOTE | 2023-03-16 12:27 | P.PNIM_ITS ---
Subjective Subjective Date of Service: 03/16/23 Interval History: htn Review of Systems abd pain improvingbut still has pain,passing gases today P.o. intake improving Encouraged her him to move around Physical Exam Vital Signs: Vital Signs: Last Vital Signs Temp 97.6 F 03/16/23 07:30 Pulse 88 03/16/23 07:30 Resp 20 03/16/23 07:30 BP 186/103 H 03/16/23 07:30 Pulse Ox 95 03/16/23 07:30 O2 Del Method Room Air 03/16/23 07:30 O2 Flow Rate 2 03/14/23 07:34 BMI result Body Mass Index 35.1 Appearance: Alert.? Oriented X3.? not in distress.? cvs: rrr, [id number]. res: clear to auscultation ,no rhonchii or wheezing abd: no rebound or guarding ,soarness at incison area , abd soft. ext pulses present , no cyanosis . neuro: axo3 , nonfocal. Objective Data Active Medications Amlodipine Besylate (Amlodipine Besylate 10 Mg Tablet) 10 mg PO DAILY [facility]; Protocol Last Admin: 03/16/23 07:56 Dose: 10 mg Documented By: ADELA Buprenorphine/Naloxone (Buprenorphine/Naloxone 2/0.5mg Film) 1 film SUBLINGUAL DAILY [facility] Last Admin: 03/16/23 07:56 Dose: 1 film Documented By: ADELA Dextrose (Dextrose 50 % 25 Gm/50 Ml Syringe) 25 gm IVPUSH Q15M PRN; Protocol PRN Reason: per Hypoglycemia Standing Ord. Glucose (Glucose Gel 15 Gm Gel..Gram.) 15 gm PO Q15M PRN; Protocol PRN Reason: per Hypoglycemia Standing Ord. Heparin Sodium (Porcine) (Heparin Sodium,Porcine 5,000 Unit/Ml Vial) 5,000 unit SUBCUT Q8H [facility] Last Admin: 03/16/23 10:22 Dose: 5,000 unit Documented By: ADELA Hydromorphone HCl (Hydromorphone Hcl 1 Mg/Ml Syringe) 1 mg IVPUSH Q3H PRN; Protocol PRN Reason: Pain, Severe (Pain Scale 7-10) Acetaminophen (Ofirmev) 1,000 mg in 100 mls @ 400 mls/hr IV Q6H [facility] Last Infusion: 03/16/23 10:49 Dose: 0 mls/hr Documented By: ADELA Insulin Human Lispro (Insulin Lispro 100 Unit/Ml 3 Ml Vial) 0 unit SUBCUT QIDACHS [facility]; Protocol Last Admin: 03/16/23 11:32 Dose: Not Given Documented By: ADELA Non-Admin Reason: No Insulin Coverage Lisinopril (Lisinopril 10 Mg Tablet) 10 mg PO DAILY [facility]; Protocol Last Admin: 03/16/23 07:56 Dose: 10 mg Documented By: ADELA Ondansetron HCl (Ondansetron Hcl 4 Mg/2 Ml Vial) 4 mg IVPUSH Q8H PRN PRN Reason: Nausea and Vomiting Oxycodone HCl (Oxycodone Hcl Immed Release 5 Mg Tablet) 10 mg PO Q4H PRN PRN Reason: Pain, Moderate(Pain Scale 4-6) Last Admin: 03/15/23 23:02 Dose: 10 mg Documented By: JEWEL Sodium Chloride (0.9 % Sodium Chloride Flush 3 Ml Syringe) 3 ml IVFLUSH QSHIFT [facility] Last Admin: 03/16/23 07:48 Dose: Not Given Documented By: ADELA Non-Admin Reason: IV Running Labs 03/14/23 05:56 03/14/23 05:56 Labs: Laboratory Results - last 24 hr 03/15/23 03/15/23 03/16/23 16:17 20:19 07:21 POC Glucose 135 H 154 H 178 H 03/16/23 11:16 POC Glucose 171 H Assessment and Plan (1) Hypertension: Status: Acute Plan 68 year old male with history of htn, jko-jrglowl-dbydfdewy type 2 diabetes, o piate use disorder, colon cancer, and history of alcohol dependence admitted to general surgery with consult placed hospitalist Medicine for medical management with concern for hypertension. Colon cancer-s/p colon surgery-Hand assisted laparoscopic right colon resection 03/13 pain control-dilaudid/oxycodone clears for now until nausea resolved. Await GI function. HTN:blood pressure fluctuating depending on pain Continue lisinopril 10mg and amlodipine 10 mg PO,added iv hydralazine prn if needed for blood pressure. Monitor BP closely [id number] type 2 diabetes-fs acceptable. fs acceptable -POC glucose -advanced a diabetic diet as per primary team -Humalog on sliding scale, hold metformin. substance use dis: on subaxone. dispo -as per primary team Time Spent With Patient Time: Total time managing care of this patient today ____ minutes. Quality Stroke Does the patient have a stroke diagnosis?: No VTE Prior VTE?: No VTE Risk Level:: Surgical - high VTE Device Contraindication: N/A - Device Ordered VTE Drug Contraindication: N/A - Med Ordered
--- NOTE | 2023-03-16 14:13 | MHC.CLN ---
F/U CLEAR LIQUID DIET. DX COLON CANCER, S/P COLECTOMY. APPEARS TO BE TOLERATING CLEAR LIQUIDS. HAS DX DM AND RECOMMEND THERAPEUTIC DIET DIABETIC 2000 [address]ALS WHEN ABLE. FOLLOW FOR DIET ADVANCEMENT/DIET TOLERANCE.
[2023-03-16] MEDS: Lactated Ringers 1,000 ML 80 ML IVCONT ×2 (14:34→20:56)
[2023-03-16 15:46] VITALS: BP 211/100; PULSE 79; RESP 20; TEMP 37; O2SAT 98
[2023-03-16 16:23] LABS: Glucose, Whole Blood 157 mg/dL (60-115)
[2023-03-16] MEDS: hydrALAZINE HCl 20 MG/ML VIAL 10 MG IVPUSH (17:23)
[2023-03-16 17:39] VITALS: BP 160/77
[2023-03-16 19:19] VITALS: BP 178/86; PULSE 79; RESP 16; TEMP 36.9; O2SAT 96
[2023-03-16 19:46] LABS: Glucose, Whole Blood 160 mg/dL (60-115)
[2023-03-17] MEDS: Heparin Sodium,Porcine 5,000 UNIT/ML VIAL 5000 UNIT SUBCUT ×3 (02:22→17:41)
[2023-03-17] MEDS: Acetaminophen 1,000 MG/100 ML PIGGYBACK 400 MG IV (02:22)
[2023-03-17] MEDS: HYDROmorphone HCl 1 MG/ML SYRINGE IVPUSH (02:23)
[2023-03-17 03:12] VITALS: BP 178/90; PULSE 81; RESP 17; TEMP 36.6; O2SAT 95
[2023-03-17] MEDS: hydrALAZINE HCl 20 MG/ML VIAL 10 MG IVPUSH (03:49)
[2023-03-17 07:03] VITALS: BP 172/86; PULSE 87; RESP 18; TEMP 36.8; O2SAT 95
[2023-03-17 07:31] LABS: Glucose, Whole Blood 156 mg/dL (60-115)
[2023-03-17] MEDS: amLODIPine Besylate 10 MG TABLET PO (08:30)
[2023-03-17] MEDS: Buprenorphine/Naloxone 2/0.5mg FILM 1 FILM SUBLINGUAL (08:31)
[2023-03-17 08:48] LABS: Anion Gap 14 (12-20); Blood Urea Nitrogen 9 mg/dL (9-16); Calcium 9.1 mg/dL (8.4-10.2); Carbon Dioxide 24 mmol/L (22-29); Chloride 102 mmol/L (96-108); Creatinine Clr Calc Pharmacy 107.3; Estimated Glomerular Filt Rate > 60; Glucose Random 166 mg/dL (60-115); Potassium 3.6 mmol/L (3.3-5.1); Sodium 136 mmol/L (135-145)
[2023-03-17] MEDS: lisinopriL 20 MG TABLET PO (10:04)
[2023-03-17 11:10] LABS: Glucose, Whole Blood 193 mg/dL (60-115)
--- NOTE | 2023-03-17 11:21 | HO.PM.IMPN ---
Subjective Subjective Date of Service: 03/17/23 Interval History: htn Review of Systems abd pain improvingbut still has pain,passing gases today P.o. intake improving Encouraged her him to move around Physical Exam Vital Signs: Vital Signs: Last Vital Signs Temp 98.3 F 03/17/23 07:03 Pulse 87 03/17/23 07:03 Resp 18 03/17/23 07:03 BP 172/86 H 03/17/23 07:03 Pulse Ox 95 03/17/23 07:03 O2 Del Method Room Air 03/17/23 07:03 O2 Flow Rate 2 03/14/23 07:34 BMI result Body Mass Index 35.1 Appearance: Alert.? Oriented X3.? not in distress.? cvs: rrr, [id number]. res: clear to auscultation ,no rhonchii or wheezing abd: no rebound or guarding ,soarness at incison area , abd soft. ext pulses present , no cyanosis . neuro: axo3 , nonfocal. Objective Data Active Medications Amlodipine Besylate (Amlodipine Besylate 10 Mg Tablet) 10 mg PO DAILY [facility]; Protocol Last Admin: 03/17/23 08:30 Dose: 10 mg Documented By: TEZ Buprenorphine/Naloxone (Buprenorphine/Naloxone 2/0.5mg Film) 1 film SUBLINGUAL DAILY [facility] Last Admin: 03/17/23 08:31 Dose: 1 film Documented By: TEZ Dextrose (Dextrose 50 % 25 Gm/50 Ml Syringe) 25 gm IVPUSH Q15M PRN; Protocol PRN Reason: per Hypoglycemia Standing Ord. Glucose (Glucose Gel 15 Gm Gel..Gram.) 15 gm PO Q15M PRN; Protocol PRN Reason: per Hypoglycemia Standing Ord. Heparin Sodium (Porcine) (Heparin Sodium,Porcine 5,000 Unit/Ml Vial) 5,000 unit SUBCUT Q8H [facility] Last Admin: 03/17/23 10:04 Dose: 5,000 unit Documented By: TEZ Hydralazine HCl (Hydralazine Hcl 20 Mg/Ml Vial) 10 mg IVPUSH Q6H PRN; Protocol PRN Reason: htn Last Admin: 03/17/23 03:49 Dose: 10 mg Documented By: MONICA Hydromorphone HCl (Hydromorphone Hcl 1 Mg/Ml Syringe) 1 mg IVPUSH Q3H PRN; Protocol PRN Reason: Pain, Severe (Pain Scale 7-10) Last Admin: 03/17/23 02:23 Dose: 1 mg Documented By: MONICA Insulin Human Lispro (Insulin Lispro 100 Unit/Ml 3 Ml Vial) 0 unit SUBCUT QIDACHS [facility]; Protocol Last Admin: 03/17/23 11:12 Dose: Not Given Documented By: TEZ Non-Admin Reason: No Insulin Coverage Lisinopril (Lisinopril 20 Mg Tablet) 20 mg PO DAILY [facility]; Protocol Last Admin: 03/17/23 10:04 Dose: 20 mg Documented By: TEZ Ondansetron HCl (Ondansetron Hcl 4 Mg/2 Ml Vial) 4 mg IVPUSH Q8H PRN PRN Reason: Nausea and Vomiting Oxycodone HCl (Oxycodone Hcl Immed Release 5 Mg Tablet) 10 mg PO Q4H PRN PRN Reason: Pain, Moderate(Pain Scale 4-6) Last Admin: 03/15/23 23:02 Dose: 10 mg Documented By: JEWEL Sodium Chloride (0.9 % Sodium Chloride Flush 3 Ml Syringe) 3 ml IVFLUSH QSHIFT [facility] Last Admin: 03/17/23 08:09 Dose: Not Given Documented By: TEZ Non-Admin Reason: IV Running Labs 03/14/23 05:56 03/17/23 08:19 Labs: Laboratory Results - last 24 hr 03/16/23 03/16/23 03/16/23 11:16 16:12 19:42 Anion Gap Estim Creat Clear Calc Estimated GFR POC Glucose 171 H 157 H 160 H Random Glucose Calcium 03/17/23 03/17/23 03/17/23 07:27 08:19 11:03 Anion Gap 14 Estim Creat Clear Calc 107.3 Estimated GFR > 60 POC Glucose 156 H 193 H Random Glucose 166 H Calcium 9.1 D Assessment and Plan (1) Hypertension: Status: Acute Plan 68 year old male with history of htn, [id number]-ghmrkldzf type 2 diabetes, opiate use disorder, colon cancer, and history of alcohol dependence admitted to general surgery with consult placed hospitalist Medicine for medical management with concern for hypertension. Colon cancer-s/p colon surgery-Hand assisted laparoscopic right colon resection 03/13 pain control-dilaudid/oxycodone clears for now until nausea resolved. Await GI function. HTN:uncontrolled Continue amlodipine 10 mg? PO, adjusted lisinopril 20mg and iv hydralazine prn if needed for blood pressure. Monitor BP closely ?gjz-ujglvab-deycoblov type 2 diabetes-fs acceptable. fs acceptable -POC glucose -advanced a diabetic diet as per primary team -Humalog on sliding scale, hold metformin. substance use dis: on subaxone. dispo -as per primary team Time Spent With Patient Time: Total time managing care of this patient today ____ minutes. Quality Stroke Does the patient have a stroke diagnosis?: No VTE Prior VTE?: No VTE Risk Level:: Surgical - high VTE Device Contraindication: N/A - Device Ordered VTE Drug Contraindication: N/A - Med Ordered
[2023-03-17 12:39] VITALS: BP 172/88
[2023-03-17 15:16] VITALS: BP 147/82; PULSE 75; RESP 18; TEMP 37.2; O2SAT 95
[2023-03-17 16:32] LABS: Glucose, Whole Blood 165 mg/dL (60-115)
--- NOTE | 2023-03-17 17:38 | P.PNGS_ITS ---
Subjective Subjective Date of Service: 03/17/23 Interval history: Tolerating liquid diet. Past flatus and stool this afternoon. Patient would like diet advanced. Incisional discomfort improving. Physical Exam Vital Signs: Vital Signs: Last Vital Signs Temp 99.0 F 03/17/23 15:16 Pulse 75 03/17/23 15:16 Resp 18 03/17/23 15:16 BP 147/82 H 03/17/23 15:16 Pulse Ox 95 03/17/23 15:16 O2 Del Method Room Air 03/17/23 15:16 O2 Flow Rate 2 03/14/23 07:34 BMI result Body Mass Index 35.1 GI: Other: Abdomen soft. Wound clean dry and intact. Objective Data Active Medications Amlodipine Besylate (Amlodipine Besylate 10 Mg Tablet) 10 mg PO DAILY [facility]; Protocol Last Admin: 03/17/23 08:30 Dose: 10 mg Documented By: TEZ Buprenorphine/Naloxone (Buprenorphine/Naloxone 2/0.5mg Film) 1 film SUBLINGUAL DAILY [facility] Last Admin: 03/17/23 08:31 Dose: 1 film Documented By: TEZ Dextrose (Dextrose 50 % 25 Gm/50 Ml Syringe) 25 gm IVPUSH Q15M PRN; Protocol PRN Reason: per Hypoglycemia Standing Ord. Glucose (Glucose Gel 15 Gm Gel..Gram.) 15 gm PO Q15M PRN; Protocol PRN Reason: per Hypoglycemia Standing Ord. Heparin Sodium (Porcine) (Heparin Sodium,Porcine 5,000 Unit/Ml Vial) 5,000 unit SUBCUT Q8H [facility] Last Admin: 03/17/23 10:04 Dose: 5,000 unit Documented By: TEZ Hydralazine HCl (Hydralazine Hcl 20 Mg/Ml Vial) 10 mg IVPUSH Q6H PRN; Protocol PRN Reason: htn Last Admin: 03/17/23 03:49 Dose: 10 mg Documented By: MONICA Hydromorphone HCl (Hydromorphone Hcl 1 Mg/Ml Syringe) 1 mg IVPUSH Q3H PRN; Protocol PRN Reason: Pain, Severe (Pain Scale 7-10) Last Admin: 03/17/23 02:23 Dose: 1 mg Documented By: MONICA Insulin Human Lispro (Insulin Lispro 100 Unit/Ml 3 Ml Vial) 0 unit SUBCUT QIDACHS [facility]; Protocol Last Admin: 03/17/23 16:38 Dose: Not Given Documented By: TEZ Non-Admin Reason: No Insulin Coverage Lisinopril (Lisinopril 20 Mg Tablet) 20 mg PO DAILY [facility]; Protocol Last Admin: 03/17/23 10:04 Dose: 20 mg Documented By: TEZ Ondansetron HCl (Ondansetron Hcl 4 Mg/2 Ml Vial) 4 mg IVPUSH Q8H PRN PRN Reason: Nausea and Vomiting Oxycodone HCl (Oxycodone Hcl Immed Release 5 Mg Tablet) 10 mg PO Q4H PRN PRN Reason: Pain, Moderate(Pain Scale 4-6) Last Admin: 03/15/23 23:02 Dose: 10 mg Documented By: JEWEL Sodium Chloride (0.9 % Sodium Chloride Flush 3 Ml Syringe) 3 ml IVFLUSH QSHIFT [facility] Last Admin: 03/17/23 08:09 Dose: Not Given Documented By: TEZ Non-Admin Reason: IV Running Labs 03/14/23 05:56 03/17/23 08:19 Labs: Laboratory Results - last 24 hr 03/16/23 03/17/23 03/17/23 19:42 07:27 08:19 Anion Gap 14 Estim Creat Clear Calc 107.3 Estimated GFR > 60 POC Glucose 160 H 156 H Random Glucose 166 H Calcium 9.1 D 03/17/23 03/17/23 11:03 16:30 Anion Gap Estim Creat Clear Calc Estimated GFR POC Glucose 193 H 165 H Random Glucose Calcium Procedures Date of Service Date of Service: 03/17/23 Progress Note: A&P Assessment and plan (1) S/P right colectomy: Status: Acute Plan To advanced solid diet, encourage incentive spirometry, ambulate with assistance Time Spent With Patient Time: Total time managing care of this patient today ____ minutes. Quality Stroke Does the patient have a stroke diagnosis?: No VTE Prior VTE?: No VTE Risk Level:: Surgical - high VTE Device Contraindication: N/A - Device Ordered VTE Drug Contraindication: N/A - Med Ordered
[2023-03-17] MEDS: 0.9 % Sodium Chloride Flush 3 ML SYRINGE IVFLUSH ×2 (17:42→21:05)
[2023-03-17 20:00] VITALS: BP 170/82; PULSE 80; RESP 18; TEMP 36.5; O2SAT 94
[2023-03-17 20:33] LABS: Glucose, Whole Blood 172 mg/dL (60-115)
[2023-03-18] MEDS: Heparin Sodium,Porcine 5,000 UNIT/ML VIAL 5000 UNIT SUBCUT ×2 (02:25→09:38)
[2023-03-18 04:00] VITALS: BP 134/78; PULSE 69; RESP 18; TEMP 36.2; O2SAT 95
[2023-03-18 07:07] VITALS: BP 164/83; PULSE 79; RESP 18; TEMP 36.8; O2SAT 96
[2023-03-18 07:25] LABS: Glucose, Whole Blood 138 mg/dL (60-115)
[2023-03-18] MEDS: lisinopriL 20 MG TABLET PO (08:31)
[2023-03-18] MEDS: 0.9 % Sodium Chloride Flush 3 ML SYRINGE IVFLUSH (08:31)
[2023-03-18] MEDS: amLODIPine Besylate 10 MG TABLET PO (08:31)
[2023-03-18] MEDS: Buprenorphine/Naloxone 2/0.5mg FILM 1 FILM SUBLINGUAL (08:31)
--- NOTE | 2023-03-18 10:40 | HO.PM.IMPN ---
Subjective Subjective Date of Service: 03/18/23 Interval History: htn Review of Systems Pain improving, blood pressure is also improving, passing gases Strongly encouraged to ambulate. Physical Exam Vital Signs: Vital Signs: Last Vital Signs Temp 98.3 F 03/18/23 07:07 Pulse 79 03/18/23 07:07 Resp 18 03/18/23 07:07 BP 164/83 H 03/18/23 07:07 Pulse Ox 96 03/18/23 07:07 O2 Del Method Room Air 03/18/23 04:00 O2 Flow Rate 2 03/14/23 07:34 BMI result Body Mass Index 35.1 Appearance: Alert.? Oriented X3.? not in distress.? cvs: rrr, [id number]. res: clear to auscultation ,no rhonchii or wheezing abd: no rebound or guarding ,soarness at incison area , abd soft. ext pulses present , no cyanosis . neuro: axo3 , nonfocal. Objective Data Active Medications Amlodipine Besylate (Amlodipine Besylate 10 Mg Tablet) 10 mg PO DAILY [facility]; Protocol Last Admin: 03/18/23 08:31 Dose: 10 mg Documented By: TEZ Buprenorphine/Naloxone (Buprenorphine/Naloxone 2/0.5mg Film) 1 film SUBLINGUAL DAILY [facility] Last Admin: 03/18/23 08:31 Dose: 1 film Documented By: TEZ Dextrose (Dextrose 50 % 25 Gm/50 Ml Syringe) 25 gm IVPUSH Q15M PRN; Protocol PRN Reason: per Hypoglycemia Standing Ord. Glucose (Glucose Gel 15 Gm Gel..Gram.) 15 gm PO Q15M PRN; Protocol PRN Reason: per Hypoglycemia Standing Ord. Heparin Sodium (Porcine) (Heparin Sodium,Porcine 5,000 Unit/Ml Vial) 5,000 unit SUBCUT Q8H [facility] Last Admin: 03/18/23 09:38 Dose: 5,000 unit Documented By: TEZ Hydralazine HCl (Hydralazine Hcl 20 Mg/Ml Vial) 10 mg IVPUSH Q6H PRN; Protocol PRN Reason: htn Last Admin: 03/17/23 03:49 Dose: 10 mg Documented By: MONICA Hydromorphone HCl (Hydromorphone Hcl 1 Mg/Ml Syringe) 1 mg IVPUSH Q3H PRN; Protocol PRN Reason: Pain, Severe (Pain Scale 7-10) Last Admin: 03/17/23 02:23 Dose: 1 mg Documented By: MONICA Insulin Human Lispro (Insulin Lispro 100 Unit/Ml 3 Ml Vial) 0 unit SUBCUT QIDACHS [facility]; Protocol Last Admin: 03/18/23 07:26 Dose: Not Given Documented By: TEZ Non-Admin Reason: No Insulin Coverage Lisinopril (Lisinopril 20 Mg Tablet) 20 mg PO DAILY [facility]; Protocol Last Admin: 03/18/23 08:31 Dose: 20 mg Documented By: TEZ Ondansetron HCl (Ondansetron Hcl 4 Mg/2 Ml Vial) 4 mg IVPUSH Q8H PRN PRN Reason: Nausea and Vomiting Oxycodone HCl (Oxycodone Hcl Immed Release 5 Mg Tablet) 10 mg PO Q4H PRN PRN Reason: Pain, Moderate(Pain Scale 4-6) Last Admin: 03/15/23 23:02 Dose: 10 mg Documented By: JEWEL Sodium Chloride (0.9 % Sodium Chloride Flush 3 Ml Syringe) [facility] Last Admin: 03/18/23 08:31 Dose: 3 ml Documented By: TEZ Labs 03/14/23 05:56 03/17/23 08:19 Labs: Laboratory Results - last 24 hr 03/17/23 03/17/23 03/17/23 11:03 16:30 20:25 POC Glucose 193 H 165 H 172 H 03/18/23 07:22 POC Glucose 138 H Assessment and Plan (1) Hypertension: Status: Acute Plan 68 year old male with history of htn, gnf-kjspeju-ehccpfvnv type 2 diabetes, opiate use disorder, colon cancer, and history of alcohol dependence admitted to general surgery with consult placed hospitalist Medicine for medical management with concern for hypertension. Colon cancer-s/p colon surgery-Hand assisted laparoscopic right colon resection 03/13 pain control-dilaudid/oxycodone clears for now until nausea resolved. Await GI function. HTN:uncontrolled Continue amlodipine 10 mg? PO, adjusted lisinopril 20mg and iv hydralazine prn if needed for blood pressure. Monitor BP closely ?dpq-jgiwvpu-dxpvwdakh type 2 diabetes-fs acceptable. fs acceptable -POC glucose -advanced a diabetic diet as per primary team -Humalog on sliding scale, hold metformin. substance use dis: on subaxone. dispo -as per primary team Time Spent With Patient Time: Total time managing care of this patient today ____ minutes. Quality Stroke Does the patient have a stroke diagnosis?: No VTE Prior VTE?: No VTE Risk Level:: Surgical - high VTE Device Contraindication: N/A - Device Ordered VTE Drug Contraindication: N/A - Med Ordered
[2023-03-18 11:22] LABS: Glucose, Whole Blood 155 mg/dL (60-115)
[2023-03-18 15:28] VITALS: BP 138/75; PULSE 79; RESP 18; TEMP 36.9; O2SAT 95
--- NOTE | 2023-03-18 15:56 | PM.PNGS ---
Subjective Subjective Date of Service: 03/18/23 Interval history: Patient overall doing well. Minimal incision discomfort. Tolerating his diet. Passing flatus but no BM yet. Physical Exam Vital Signs: Vital Signs: Last Vital Signs Temp 98.4 F 03/18/23 15:28 Pulse 79 03/18/23 15:28 Resp 18 03/18/23 15:28 BP 138/75 03/18/23 15:28 Pulse Ox 95 03/18/23 15:28 O2 Del Method Room Air 03/18/23 15:28 O2 Flow Rate 2 03/14/23 07:34 BMI result Body Mass Index 35.1 GI: Other: Abdomen soft. Wound clean dry and intact. Objective Data Active Medications Amlodipine Besylate (Amlodipine Besylate 10 Mg Tablet) 10 mg PO DAILY [facility]; Protocol Last Admin: 03/18/23 08:31 Dose: 10 mg Documented By: TEZ Buprenorphine/Naloxone (Buprenorphine/Naloxone 2/0.5mg Film) 1 film SUBLINGUAL DAILY [facility] Last Admin: 03/18/23 08:31 Dose: 1 film Documented By: TEZ Dextrose (Dextrose 50 % 25 Gm/50 Ml Syringe) 25 gm IVPUSH Q15M PRN; Protocol PRN Reason: per Hypoglycemia Standing Ord. Glucose (Glucose Gel 15 Gm Gel..Gram.) 15 gm PO Q15M PRN; Protocol PRN Reason: per Hypoglycemia Standing Ord. Heparin Sodium (Porcine) (Heparin Sodium,Porcine 5,000 Unit/Ml Vial) 5,000 unit SUBCUT Q8H [facility] Last Admin: 03/18/23 09:38 Dose: 5,000 unit Documented By: TEZ Hydralazine HCl (Hydralazine Hcl 20 Mg/Ml Vial) 10 mg IVPUSH Q6H PRN; Protocol PRN Reason: htn Last Admin: 03/17/23 03:49 Dose: 10 mg Documented By: MONICA Hydromorphone HCl (Hydromorphone Hcl 1 Mg/Ml Syringe) 1 mg IVPUSH Q3H PRN; Protocol PRN Reason: Pain, Severe (Pain Scale 7-10) Last Admin: 03/17/23 02:23 Dose: 1 mg Documented By: MONICA Insulin Human Lispro (Insulin Lispro 100 Unit/Ml 3 Ml Vial) 0 unit SUBCUT QIDACHS [facility]; Protocol Last Admin: 03/18/23 11:23 Dose: Not Given Documented By: TEZ Non-Admin Reason: No Insulin Coverage Lisinopril (Lisinopril 20 Mg Tablet) 20 mg PO DAILY [facility]; Protocol Last Admin: 03/18/23 08:31 Dose: 20 mg Documented By: TEZ Ondansetron HCl (Ondansetron Hcl 4 Mg/2 Ml Vial) 4 mg IVPUSH Q8H PRN PRN Reason: Nausea and Vomiting Oxycodone HCl (Oxycodone Hcl Immed Release 5 Mg Tablet) 10 mg PO Q4H PRN PRN Reason: Pain, Moderate(Pain Scale 4-6) Last Admin: 03/15/23 23:02 Dose: 10 mg Documented By: JEWEL Sodium Chloride (0.9 % Sodium Chloride Flush 3 Ml Syringe) 3 ml IVFLUSH QSHIFT [facility] Last Admin: 03/18/23 08:31 Dose: 3 ml Documented By: TEZ Labs 03/14/23 05:56 03/17/23 08:19 Labs: Laboratory Results - last 24 hr 03/17/23 03/17/23 03/18/23 16:30 20:25 07:22 POC Glucose 165 H 172 H 138 H 03/18/23 11:17 POC Glucose 155 H Procedures Date of Service Date of Service: 03/18/23 Progress Note: A&P Assessment and plan (1) S/P right colectomy: Status: Acute (2) Colon cancer: Status: Acute Plan Patient wishes to be discharged home. Arrangements will be undertaken. Time Spent With Patient Time: Total time managing care of this patient today ____ minutes. Quality Stroke Does the patient have a stroke diagnosis?: No VTE Prior VTE?: No VTE Risk Level:: Surgical - high VTE Device Contraindication: N/A - Device Ordered VTE Drug Contraindication: N/A - Med Ordered
--- NOTE | 2023-03-19 10:14 | P.DS_ITS ---
DS: Providers Provider Date of Service: 03/18/23 Date of admission: 03/13/23 07:40 Primary care physician: Jay Rogers MD Attending physician on admission: Don Fiore Consults: 03/13/23 14:37 Consult to Hospitalist Routine Comment: Consulting Provider: Hospitalist Reason For Exam: hypertension, post op medical management Attending physician on discharge: Prosper Mix DS: Diagnosis Discharge Diagnosis (1) S/P right colectomy: Status: Acute (2) Colon cancer: Status: Acute DS: Summary Hospital Course Hospital Course: HPI AT ADMISSION: Patient is 68-year-old male gone colonoscopy last? January, and had a polyp removed in the ascending colon need a cecum.?This was discussed with the? endoscopist.? The path report had shown invasive adenocarcinoma with positive margins. It was therefore explained to him that it would be best to proceed with right colon resection.?He presents now for the procedure. HOSPITAL COURSE: On 03/13/23, hand assisted laparoscopic right colon resection was performed by Dr. Fiore without complication with?intraop consultation with Urology for hematuria. The patient tolerated the procedure well and was admitted for observation. His hematuria resolved almost immediately post operatively. Hospitalists were consulted for medical management and resumed his home meds. The patient had an uncomplicated but slow recovery course. His pain control was difficult to control as he had a history of substance abuse and was on suboxone. He was kept on clear liquids for a few days until he had evidence of GI function. He began to pass continuous flatus and he was advanced to solid low residue diet. He was ambulated and his activity increased. His pain control improved and he was comfortable on PO analgesics. On the day of discharge, he was tolerating a solid diet without nausea or vomiting. He was passing flatus. His abdomen was benign with clean incisions. He was discharged to home on 03/18/23 in stable condition. He is to follow up in the office in 2 weeks. HYPERTENSION: He was noted to be persistently hypertensive post operatively. His lisinopril was increased to 20mg PO daily and amlodipine 10mg PO daily added. He is to follow up with his PCP regarding further management. Status at Discharge Functional status at discharge: independent ambulation Overall status at discharge: patient is progressing back to baseline Time Spent with Patient Time attestation: Total time managing care of this patient today ____ minutes. Discharge coordination time: Less than 30 minutes Quality: Safe Use of Opioids Does Pt have an Active Cancer Diagnosis on the Problem List?: Yes Opioid Measure Date for [facility] Report: 02/17/23 Opioid Measure Time for [facility] Report: 13:44 Quality: Stroke Does the patient have a stroke diagnosis?: No Physical Exam Vital Signs: Vital Signs: Last Vital Signs Temp 98.4 F 03/18/23 15:28 Pulse 79 03/18/23 15:28 Resp 18 03/18/23 15:28 BP 138/75 03/18/23 15:28 Pulse Ox 95 03/18/23 15:28 O2 Del Method Room Air 03/18/23 15:28 O2 Flow Rate 2 03/14/23 07:34 BMI result Body Mass Index 35.1 Const: General: comfortable, no acute distress and alert Orientation/consciousness: patient oriented x3 Resp: Effort & Inspection: normal respiratory effort GI: Inspection: No distended and Yes incision (clean) Palpation (GI): Soft to palpation, Tenderness to palpation present (GI) (mild incisional) and no guarding Percussion: Yes normal to percussion Skin: General skin exam: no rashes or lesions noted Neuro: General: patient oriented x3 DS: Data Data Completed and Pending Completed studies during hospitalization [Text1]: 03/13/23 09:37 Surgical [PTH] Routine Colon, right, hemicolectomy: - Residual adenomatous mucosa with high-grade epithelial dysplasia/intramucosal carcinoma, no definite submucosal invasion seen. - No evidence of lymphovascular invasion. - Twenty-three lymph nodes, negative for malignancy (0/23). - Separate tubular adenoma. Labs on day of discharge: Laboratory Results - last 24 hr 03/18/23 11:17 POC Glucose 155 H Discharge Plan Discharge Anticipated Discharge Date/Time: 03/18/23 13:10 Patient Disposition: Home, Self-Care Discharge Diagnosis: s/p right colectomy Referrals: Don Fiore MD [Physician] - 2 Weeks Jay Rogers MD [Primary Care Provider] - 1 Week Discharge Medications: New oxycodone 5 mg tablet 5 mg PO Q4H PRN (Reason: pain (scale score 7-10)) Qty: 26 0RF Rx Instructions: Partial Fill upon patient request. Take 1-2 tablets every 4-6 hours as needed for pain. amlodipine 10 mg Tablet 10 mg PO DAILY Qty: 30 0RF Protocol: Hold for SBP< HOLD for SBP < : 90 Continued metformin 500 mg tablet extended release 24 hr 500 mg PO BID 90 Days Qty: 180 1RF buprenorphine-naloxone [Suboxone] 2-0.5 mg film 2 mg sublingual DAILY (DME) blood-glucose meter Kit See Rx Instructions .ROUTE .MEDSUPPLY Qty: 1 0RF Rx Instructions: As directed Changed lisinopril 10 mg tablet 20 mg PO DAILY Qty: 60 1RF Discharge Orders: Discharge Order (Routine); Ordered 03/18/23 Ordered By: Prosper Mix Diet: Advance to usual diet Activity on Discharge: No heavy lifting Stand Alone Forms: Patient Portal Discharge page Activity Restrictions/Additional Instructions: If the incision area is tender, you may apply an ice pack for short intervals (No more than 20 minutes on, followed by at least 20 minutes off). Do not apply heat. Do not use creams, lotions, or topical antibiotics. These can cause infection or allergic reaction. Ok to shower. You have lisa closing your incision and these will be removed approximately 10-14 days after surgery. NO HEAVY LIFTING (>10lbs) or strenuous activity. Follow up in office with Dr. Fiore in 2 weeks. ([phone]) Call Your Doctor If: -Your temperature exceeds 101.5? F -You experience excessive pain or swelling -You have an unexpected reaction to medication -You have excessive bleeding -You experience continued vomiting/nausea -Your incision begins to separate -Your incision shows signs of infection such as increased redness, swelling, excessive pain, drainage (light blood or clear fluid is normal) or heat Care Plan Goals: Return to baseline health and resume normal activities following recovery period. Health Concerns: right colon CA hypertension hx of substance abuse on suboxone Plan of Treatment: s/p right colectomy pain control f/u in office in 2 weeks Assessment: Doing well post op. Discharge Date/Time: 03/18/23 16:56
== END 2023-03-18 16:56 | disposition home or self-care (01) | DRG 330 ==
LOC: HO.SSSA 07:44 → HO.S3 12:16
PROVIDERS: Internal Medicine; Nurse Practitioner; Physician Assistant Surgical; Admitting Provider Surgery; PCP Internal Medicine; Visit Provider Surgery
PROC: 0DTE0ZZ Resection of Large Intestine, Open Approach (ICD-10-PCS; principal; 2023-03-13 07:30)
DX: C18.2 Malignant neoplasm of ascending colon (principal); F11.20 Opioid dependence, uncomplicated; E66.09 Other obesity due to excess calories; Z68.35 Body mass index [BMI] 35.0-35.9, adult; G89.18 Other acute postprocedural pain; E11.9 Type 2 diabetes mellitus without complications; R31.0 Gross hematuria; F10.20 Alcohol dependence, uncomplicated; I10 Essential (primary) hypertension; Z79.84 Long term (current) use of oral hypoglycemic drugs; Z79.899 Other long term (current) drug therapy
CPT/HCPCS: 36415; 74018; 74400; 80048; 80053; 80307; 82947; 83036; 85025; 85027; 86850; 86900; 86901; 88309; 93005; C1758; J0131; J0461; J1170; J1643; J2250; J2270; J2405; J2550; J2795; J3010; Q9967

== ENCOUNTER → 2023-03-13 07:40 | Outpatient (BNV) | payer OTHER, SELFPAY | PROVIDERS: Admitting Provider Surgery; PCP Internal Medicine; Visit Provider Physician Assistant Surgical | DX: Z90.49 Acquired absence of other specified parts of digestive tract (principal); C18.9 Malignant neoplasm of colon, unspecified | CPT/HCPCS: 44204; 99024; 99212; 99499 ==

== ENCOUNTER → 2023-03-13 07:40 | Outpatient (BNV) | payer OTHER, SELFPAY | PROVIDERS: Admitting Provider Surgery; PCP Internal Medicine; Visit Provider Physician Assistant | DX: I10 Essential (primary) hypertension (principal) | CPT/HCPCS: 99222; 99231 ==

== ENCOUNTER 2023-04-02 09:53 | Outpatient (AMB) | payer OTHER, SELFPAY ==
[2023-04-02 10:16] VITALS: BP 122/60; PULSE 88
--- NOTE | 2023-04-02 10:16 | A.OFFVIS_ITS ---
Intake Vital Signs 04/02/23 10:16 Weight 227 lb 8.273 oz BP 122/60 Blood Pressure Location Rt brachial Position Sitting Pulse 88 Intake Visit Reasons: S/P lap. Rt colon resection Intake Note: This patient presents for a post-op assessment status post right colon resection. Patient c/o; reports no complaints at this time. Cast Iron Dipper Required: No Accompanied by: Self / Same As Patient Allergies No Known Allergies Allergy (Verified 04/02/23 10:17) HPI S/P lap. Rt colon resection HPI Details He had undergone right last 03/13/2023. He tolerated procedure well and was discharged postop day number 5. He says he has been doing well at home. He says he has lost 25 lb because he had been walking for exercise. He has good oral intake. He denies problems with bowel movements. [facility] Medical History Joint pain Situational anxiety Colon cancer Hypertension Diabetes Alcohol dependence, uncomplicated Substance use disorder Surgical History History of colon resection (~03/13/23) Hx of colonoscopy History of knee surgery Family History Mother Cancer of unknown origin Other Substance use disorder Social History Household Members: None Household Members Other:: lives alone Housing: Apartment Are you a primary long term care phlebotomist to a significant other at home: No Do you presently have visiting nurse or other home services: No Alcohol intake: current Alcohol intake frequency: a few times a week Patient Tobacco Use Status: Never used Tobacco e-Cigarette/Vaping Use: Never Used Second Hand Smoke Exposure: No service: No Current occupational status: retired Cognitive needs: No Hearing needs: No Vision needs: Yes (Reading glasses) Review of Systems Const Denies chills and Denies fever(s) Card Denies chest pain, Denies dyspnea and Denies dyspnea on exertion Resp Denies cough, Denies dyspnea and Denies dyspnea on exertion GI Denies hematochezia and Denies change in bowel habits Denies hematuria and Denies difficulty urinating Musc Denies back pain and Denies limited range of motion Neuro Denies focal weakness and Denies convulsions Psych Denies depression and Denies mood swings Physical Exam Vital Signs: Last Vital Signs Pulse 88 04/02/23 10:16 BP 122/60 04/02/23 10:16 Const General: comfortable and no acute distress Resp Effort & Inspection: normal respiratory effort Cardio Rate: regular rate GI Other: Incisions well healed no evidence of infection or hernia Palpation (GI): Soft to palpation, not firm, nontender and no guarding Assessment & Plan Assessment & Plan (1) Colon cancer: Code(s): C18.9 - Malignant neoplasm of colon, unspecified Plan: Status post right colon resection. He is doing very well. I removed all his skin lisa. The incisions are well healed His path report shows residual adenomatous mucosa with high-grade dysplasia and intramucosal carcinoma with no definite submucosal invasion. Twenty-three lymph nodes were examined and this were all negative. He is doing very well. I will have him see an oncologist although he is unlikely to require any adjuvant treatment He should have a colonoscopy next year as well. He can follow up with me on a p.r.n. basis. Coding Level of Care Code Global (03515) Diagnoses Colon cancer C18.9
== END 2023-04-02 10:29 | disposition home or self-care (01) ==
PROVIDERS: PCP Internal Medicine; Visit Provider Surgery
DX: C18.9 Malignant neoplasm of colon, unspecified (principal)
CPT/HCPCS: 99024

== ENCOUNTER → 2023-04-02 09:53 | Outpatient (BNVA) | payer OTHER, SELFPAY | PROVIDERS: PCP Internal Medicine; Visit Provider Surgery ==

== ENCOUNTER → 2023-04-04 11:20 | Outpatient (BNV) | payer OTHER, SELFPAY | PROVIDERS: PCP Internal Medicine; Referring Provider Surgery; Visit Provider Internal Medicine | DX: C18.2 Malignant neoplasm of ascending colon (principal) | CPT/HCPCS: 99204 ==

== ENCOUNTER 2023-04-05 09:11 | Outpatient (AMB) | payer OTHER, SELFPAY ==
--- NOTE | 2023-04-05 09:48 | A.OFFPC_ITS ---
Vital Signs 04/05/23 09:49 Height 5 ft 11 in Weight 232 lb 4 oz BMI 32.4 BP 120/70 Blood Pressure Location Lt brachial Position Sitting Pulse 91 Pulse Source Pulse Oximeter Pulse Oximetry (%) 97 Oxygen Delivery Method Room Air Intake Visit Reasons: F/u colon surgery Intake Note: Patient is here to follow up on Colon surgery. Online Merchandiser Required: No Chief [employer]son Division: Not Required per policy Accompanied by: Self / Same As Patient Allergies No Known Allergies Allergy (Verified 04/14/23 09:07) Medication List - Last Reconciled 04/14/23 by Jay Rogers MD amlodipine 10 mg See Protocol PO DAILY blood-glucose meter As directed buprenorphine-naloxone 2-0.5 mg (Suboxone) 2 mg sublingual DAILY lisinopril 20 mg (2 x 10 mg) PO DAILY metformin ER 500 mg PO BID 90 days Tobacco use date assessed: 04/05/23 Fall risk assessment: No Falls in past year Last assessed Fall Risk: 04/05/23 Dental Screening Dental Screen Date: 04/05/23 Did you have a dental visit in the last 12 months?: Yes Did you have a dental problem in the last 6 months where you did not have access to dental care?: No Was dental information given to patient?: Patient has dentist HPI F/u colon surgery HPI Details 68-year-old male presents to the office to discuss his chronic medical conditions. During a colonoscopy of suspicious polyp was identified. Subsequently patient underwent a right hemicolectomy.. The pathology fortunately did not show any malignancy and there were no lymph nodes identified with the same. Patient is feeling well. He has returned to all activities of daily living. [facility] Medical History Joint pain Situational anxiety Colon cancer Hypertension Diabetes Alcohol dependence, uncomplicated Substance use disorder Surgical History History of colon resection (~03/13/23) Hx of colonoscopy History of knee surgery Family History Mother Cancer of unknown origin Other Substance use disorder Social History Household Members: None Household Members Other:: lives alone Housing: Apartment Are you a primary behavioral health care coordinator to a significant other at home: No Do you presently have visiting nurse or other home services: No Alcohol intake: current Alcohol intake frequency: a few times a week Patient Tobacco Use Status: Never used Tobacco e-Cigarette/Vaping Use: Never Used Second Hand Smoke Exposure: No service: No Current occupational status: retired Cognitive needs: No Hearing needs: No Vision needs: Yes (Reading glasses) Questionnaire Thrive Questionnaire Date Thrive assessed: 03/14/23 RUDY-7 AMB Questionnaire RUDY-7 Date RUDY - 7 assessed: 11/17/22 Source: Developed by Drs. Eugene Domingo, Maritza Muniz, Jose Leyva and colleagues, with an educational carli from [employer]. Physical exam (Primary Care) Vital Signs: Last Vital Signs Pulse 91 04/05/23 09:49 BP 120/70 04/05/23 09:49 Pulse Ox 97 04/05/23 09:49 Oxygen Delivery Method Room Air 04/05/23 09:49 BMI result Body Mass Index 32.4 Tobacco/Smoking Status: Tobacco use Status Tobacco use date assessed 04/05/23 04/05/23 09:56 Patient Tobacco Use Status Never used Tobacco 04/05/23 09:56 e-Cigarette/Vaping Use Never Used 04/05/23 09:56 Thrive Assessment: Date of Thrive Assessment Date Thrive assessed 03/14/23 04/05/23 09:56 Const General: cooperative and healthy appearing Nutritional Appearance: well nourished Orientation/consciousness: patient oriented x3 Limitations: no limitations HENIN Head: Yes normal to inspection Eyes General: appearance normal, both eyes and all related structures Neck Neck: Yes normal visual inspection Chest Chest palpation & inspection: normal palpation of entire chest wall Resp Effort & Inspection: normal respiratory effort Skin Other: Surgical scar is healing well. Neuro General: patient oriented x3 Assessment and Plan Assessment & Plan (1) Diabetes mellitus: Code(s): E11.9 - Type 2 diabetes mellitus without complications Plan: Blood work has been ordered. (2) S/P right colectomy: Code(s): Z90.49 - Acquired absence of other specified parts of digestive tract Plan: Patient seems to have recovered well from the surgery. Patient has a follow-up with the surgeon who will decide if a an oncology consult is necessary. Orders: Orders Thyroid Stimulating Hormone 04/09/23 E11.9 - Type 2 diabetes mellitus without complications Basic Metabolic Panel 04/09/23 E11.9 - Type 2 diabetes mellitus without complications Lipid Panel 04/09/23 E11.9 - Type 2 diabetes mellitus without complications Liver Panel 04/09/23 E11.9 - Type 2 diabetes mellitus without complications Complete Blood Count no Diff 04/09/23 E11.9 - Type 2 diabetes mellitus without complications Hemoglobin A1c 04/09/23 E11.9 - Type 2 diabetes mellitus without complications Coding Level of Care Code Est Pt Level 4 (35657) Diagnoses Diabetes mellitus E11.9 S/P right colectomy Z90.49
[2023-04-05 09:49] VITALS: BP 120/70; PULSE 91; O2SAT 97; BMI 32.4
== END 2023-04-05 10:35 | disposition home or self-care (01) ==
PROVIDERS: PCP Internal Medicine; Visit Provider Internal Medicine
DX: E11.9 Type 2 diabetes mellitus without complications (principal); Z90.49 Acquired absence of other specified parts of digestive tract
CPT/HCPCS: 99214

== ENCOUNTER 2023-04-09 10:40 | Outpatient (REF) | payer OTHER, SELFPAY ==
[2023-04-09 11:16] LABS: Hematocrit 34.2 % (42.0-52.0); Mean Corpuscular HGB Conc 32.2 g/dl (31.0-36.0); Mean Corpuscular Hemoglobin 29.7 pg (27.0-33.0); Mean Corpuscular Volume 92.4 fL (80.0-98.0); Mean Platelet Volume 11.1 fL (9.4-12.4); Platelet Count 249 X10*3/uL (160-400)
[2023-04-09 11:18] LABS: Estimated Average Glucose 143 mg/dL; Hemoglobin A1c % 6.6 % (<6.0)
[2023-04-09 12:33] LABS: Alanine Aminotransferase 17 U/L (0-40); Alkaline Phosphatase 62 U/L (39-117); Anion Gap 11 (12-20); Aspartate Amino Transferase 19 U/L (5-37); Bilirubin Direct < 0.2 mg/dL (0.0-0.5); Bilirubin Total 0.2 mg/dL (0.0-1.0); Blood Urea Nitrogen 19 mg/dL (9-16); Calcium 8.9 mg/dL (8.4-10.2); Carbon Dioxide 24 mmol/L (22-29); Chloride 108 mmol/L (96-108); Cholesterol 136 mg/dL (<200); Estimated Glomerular Filt Rate > 60; Glucose Random 172 mg/dL (60-115); HDL Cholesterol 44 mg/dL (>40); LDL Cholesterol Calculated 72 mg/dL (<100); Potassium 4.7 mmol/L (3.3-5.1); Sodium 138 mmol/L (135-145); Thyroid Stimulating Hormone 2.48 uIU/mL (0.32-4.0); Total Protein 7.6 g/dL (6.5-8.0); Triglycerides 102 mg/dL (<150)
== END 2023-04-09 10:41 | disposition home or self-care (01) ==
LOC: HO.LAB 10:40
PROVIDERS: PCP Internal Medicine; Visit Provider Internal Medicine
DX: E11.9 Type 2 diabetes mellitus without complications (principal)
CPT/HCPCS: 36415; 80048; 80061; 80076; 83036; 84443; 85027

== ENCOUNTER 2024-01-02 14:46 | Outpatient (AMB) | payer MEDICARE, MEDICAID, SELFPAY ==
--- NOTE | 2024-01-02 14:50 | MHC.PC.OV ---
Vital Signs 01/02/24 14:52 Height 5 ft 11 in Weight 246 lb 8 oz BMI 34.4 BP 122/68 Blood Pressure Location Lt brachial Position Sitting Pulse 99 Pulse Source Pulse Oximeter Pulse Oximetry (%) 98 Oxygen Delivery Method Room Air Intake Visit Reasons: HTN, DM f/u Intake Note: Patient is here to follow up on HTN, DM. Chairman & Chief Executive Officer Required: No Director Of Scientific Research: Not Required per policy Accompanied by: Self / Same As Patient Allergies No Known Allergies Allergy (Verified 01/02/24 15:32) Medication List - Last Reconciled 01/02/24 by Jay Rogers MD amlodipine 10 mg See Protocol PO DAILY blood-glucose meter As directed buprenorphine-naloxone 2-0.5 mg (Suboxone) 2 mg sublingual DAILY lisinopril 20 mg (2 x 10 mg) PO DAILY metformin ER 500 mg PO BID 90 days Tobacco use date assessed: 01/02/24 Fall risk assessment: No Falls in past year Last assessed Fall Risk: 01/02/24 Dental Screening Dental Screen Date: 01/02/24 Did you have a dental visit in the last 12 months?: No Did you have a dental problem in the last 6 months where you did not have access to dental care?: No Was dental information given to patient?: No HPI HTN, DM f/u HPI Details 68-year-old male presents to the office to discuss his chronic medical conditions. Patient reports that since September he has abstain from alcohol. After the surgery last fall, patient has returned back to all his activities of daily living. He bikes 20-25 miles a week. Not checking his blood sugars. However he stopped taking his metformin 3 months ago. He was feeling better and therefore decided to stop the medication. Has been compliant with the blood pressure medications. [facility] Medical History (Updated 01/02/24 @ 15:32 by Jay Rogers MD) Class 2 severe obesity with body mass index (BMI) of 35 to 39.9 with serious comorbidity Joint pain Situational anxiety Colon cancer Hypertension Diabetes Alcohol dependence, uncomplicated Substance use disorder Surgical History History of colon resection (~03/13/23) Hx of colonoscopy History of knee surgery Family History Mother Cancer of unknown origin Other Substance use disorder Social History (Updated 01/02/24 @ 14:57 by WOLF Stewart) Household Members: None Household Members Other:: lives alone Housing: Apartment Are you a primary director day care center to a significant other at home: No Do you presently have visiting nurse or other home services: No Alcohol intake: current Alcohol intake frequency: does not drink Patient Tobacco Use Status: Never used Tobacco e-Cigarette/Vaping Use: Never Used Second Hand Smoke Exposure: No service: No Current occupational status: retired Cognitive needs: No Hearing needs: No Vision needs: Yes (Reading glasses) Questionnaire PHQ-9 Over the last 2 weeks, how often have you been bothered by any of the following problems? 1. Little interest or pleasure in doing things: not at all 2. Feeling down, depressed, or hopeless: not at all 3. Trouble falling or staying asleep, or sleeping too much: not at all 4. Feeling tired or having little energy: not at all 5. Poor appetite or overeating: not at all 6. Feeling bad about yourself - or that you are a failure or have let yourself or your family down: not at all 7. Trouble concentrating on things, such as reading the newspaper or watching television: not at all 8. Moving or speaking so slowly that other people could have noticed. Or the opposite - being so fidgety or restless that you have been moving around a lot more than usual: not at all 9. Thoughts that you would be better off or of hurting yourself in some way: not at all Total score: 0 Depression Screening Interpretation: Negative Depression Screening Done: Yes Source: Developed by Drs. Eugene Domingo, Maritza Muniz, Jose Leyva and colleagues, with an educational carli from [employer]. Thrive Questionnaire Date Thrive assessed: 01/02/24 I am a: Patient What is your living situation today?: I have a steady place to live Within the past 12 months, did the food you bought not last and you didn't have the money to get more?: Never true Within the past 12 months, did you worry whether your food would run out before you got money to buy more?: Never true Do you have trouble paying for medicines?: No Do you have trouble getting transportation to medical appointments?: No Do you have trouble paying your heating and electricity bill?: No Do you have trouble taking care of your child, family member or friend?: No Do you have trouble with day-to-day activities such as bathing, preparing meals, shopping, managing finances, etc.?: No Are you currently unemployed and looking for a job?: No Are you interested in more education?: No Currently or been in a relationship where the following occur: no concerns reported THRIVE Score: 0 AUDIT C Alcohol Use Questionnaire (AUDIT-C) 1. How often do you have a drink containing alcohol?: 2-3 times a week 2. How many drinks containing alcohol do you have on a typical day when you are drinking?: 1 or 2 Total Score: 3 RUDY-7 AMB Questionnaire RUDY-7 Date RUDY - 7 assessed: 01/02/24 Feeling nervous, anxious, or on edge: 0 = Not at all Not being able to stop or control worryin = Not at all Worrying too much about different things: 0 = Not at all Trouble relaxin = Not at all Being so restless that it is hard to sit still: 0 = Not at all Becoming easily annoyed or irritable: 0 = Not at all Feeling afraid as if something awful might happen: 0 = Not at all Total RUDY-7 score (0-4 normal; 5-9 mild; 10-14 moderate; 15-21 severe): 0 Source: Developed by Drs. Eugene Domingo, Maritza Muniz, Jose Leyva and colleagues, with an educational carli from [employer]. Physical exam (Primary Care) Vital Signs: Last Vital Signs Pulse 99 01/02/24 14:52 BP 122/68 01/02/24 14:52 Pulse Ox 98 01/02/24 14:52 Oxygen Delivery Method Room Air 01/02/24 14:52 BMI result Body Mass Index 34.4 BMI Assessment/Plan discussion: High (1 lb per week weight loss suggested.) BMI High, discussed plan: lifestyle, weight reduction and dietary Tobacco/Smoking Status: Tobacco use Status Tobacco use date assessed 01/02/24 01/02/24 15:00 Patient Tobacco Use Status Never used Tobacco 01/02/24 15:00 e-Cigarette/Vaping Use Never Used 01/02/24 15:00 PHQ-9: PHQ-9 Score PHQ-9: Total score 0 01/02/24 15:19 Depression Screening Interpretation: Negative Thrive Assessment: Date of Thrive Assessment Date Thrive assessed 01/02/24 01/02/24 15:00 Currently or been in a relationship where the following occur: no concerns reported Results AMB Hemoglobin A1c AMB Hemoglobin A1c 9.3 % Last Edit by WOLF Stewart on 01/02/24 15:02 AMB Random Glucose (hemocue) AMB Random Glucose (hemocue) 309 mg/dL Last Edit by WOLF Stewart on 01/02/24 15:31 Results Reviewed Results Reviewed: Laboratory Last Values Hgb A1c (Clinic) 9.3 % (4.0-6.0) H 01/02/24 14:49 Assessment and Plan Assessment & Plan (1) Substance use disorder: Comment: last used opiates more than 10 years ago on Suboxone 11 years, goes to [facility] Code(s): F19.90 - Other psychoactive substance use, unspecified, uncomplicated (2) Alcohol dependence, uncomplicated: Comment: 5-6 beers 2-3 week Code(s): F10.20 - Alcohol dependence, uncomplicated Plan: Congratulated patient on abstaining from alcohol since 10/10/2023. (3) Diabetes mellitus: Code(s): E11.9 - Type 2 diabetes mellitus without complications Plan: A1c has worsened from 6.6-9.3. Patient was encouraged to restart his metformin. Blood work will be done in 3 months with the metformin to see if additional medications are needed. (4) Hypertension: Code(s): I10 - Essential (primary) hypertension (5) Class 2 severe obesity with body mass index (BMI) of 35 to 39.9 with serious comorbidity: Code(s): E66.01 - Morbid (severe) obesity due to excess calories Plan: Counseling on the importance of diet and exercise done.ixty Orders: Orders Lipid Panel Today E11.9 - Type 2 diabetes mellitus without complications, F10.20 - Alcohol dependence, uncomplicated, F19.90 - Other psychoactive substance use, unspecified, uncomplicated, I10 - Essential (primary) hypertension Liver Panel Today E11.9 - Type 2 diabetes mellitus without complications, F10.20 - Alcohol dependence, uncomplicated, F19.90 - Other psychoactive substance use, unspecified, uncomplicated, I10 - Essential (primary) hypertension Complete Blood Count no Diff Today E11.9 - Type 2 diabetes mellitus without complications, F10.20 - Alcohol dependence, uncomplicated, F19.90 - Other psychoactive substance use, unspecified, uncomplicated, I10 - Essential (primary) hypertension Thyroid Stimulating Hormone Today E11.9 - Type 2 diabetes mellitus without complications, F10.20 - Alcohol dependence, uncomplicated, F19.90 - Other psychoactive substance use, unspecified, uncomplicated, I10 - Essential (primary) hypertension AMB Random Glucose (hemocue) Today E11.9 - Type 2 diabetes mellitus without complications AMB Hemoglobin A1c Today E11.9 - Type 2 diabetes mellitus without complications Basic Metabolic Panel Today E11.9 - Type 2 diabetes mellitus without complications, F10.20 - Alcohol dependence, uncomplicated, F19.90 - Other psychoactive substance use, unspecified, uncomplicated, I10 - Essential (primary) hypertension UA and rflx microscopic Today E11.9 - Type 2 diabetes mellitus without complications, F10.20 - Alcohol dependence, uncomplicated, F19.90 - Other psychoactive substance use, unspecified, uncomplicated, I10 - Essential (primary) hypertension Microalbumin, Random (w Creat) Today E11.9 - Type 2 diabetes mellitus without complications, F10.20 - Alcohol dependence, uncomplicated, F19.90 - Other psychoactive substance use, unspecified, uncomplicated, I10 - Essential (primary) hypertension Medications: Refilled amlodipine 10 mg See Protocol PO DAILY 30 tabs 0RF metformin ER 500 mg PO BID 90 days 180 tabs 1RF Coding Level of Care Code Est Pt Level 4 (17407) Complex EM visit Add On G2211 Diagnoses Substance use disorder F19.90 Alcohol dependence, uncomplicated F10.20 Diabetes mellitus E11.9 Hypertension I10 Class 2 severe obesity with body mass index (BMI) of 35 to 39.9 with serious comorbidity E66.01
[2024-01-02 14:52] VITALS: BP 122/68; PULSE 99; O2SAT 98; BMI 34.4
== END 2024-01-02 15:35 | disposition home or self-care (01) ==
PROVIDERS: PCP Internal Medicine; Visit Provider Internal Medicine
DX: E11.9 Type 2 diabetes mellitus without complications (principal); F10.20 Alcohol dependence, uncomplicated; E66.01 Morbid (severe) obesity due to excess calories; Z68.34 Body mass index [BMI] 34.0-34.9, adult; F19.90 Other psychoactive substance use, unspecified, uncomplicated; I10 Essential (primary) hypertension
CPT/HCPCS: 82948; 83036; 99214; G2211

== ENCOUNTER 2024-01-03 12:58 | Outpatient (REF) | payer OTHER, SELFPAY ==
[2024-01-03 14:03] LABS: Hemoglobin 12.3 g/dl (14.0-18.0); Mean Corpuscular HGB Conc 33.2 g/dl (31.0-36.0); Mean Corpuscular Hemoglobin 29.4 pg (27.0-33.0); Mean Corpuscular Volume 88.5 fL (80.0-98.0); Mean Platelet Volume 11.6 fL (9.4-12.4); Platelet Count 184 X10*3/uL (160-400); Red Blood Count 4.18 X10*6/uL (4.60-5.80); Red Cell Distribution Width 13.5 % (11.0-16.0); White Blood Count 4.8 X10*3/uL (4.8-10.8)
[2024-01-03 14:32] LABS: Alanine Aminotransferase 18 U/L (0-40); Albumin Level 4.2 g/dL (3.5-5.0); Alkaline Phosphatase 72 U/L (39-117); Anion Gap 11 (12-20); Aspartate Amino Transferase 22 U/L (5-37); Bilirubin Direct 0.2 mg/dL (0.0-0.5); Bilirubin Total 0.5 mg/dL (0.0-1.0); Blood Urea Nitrogen 24 mg/dL (9-16); Carbon Dioxide 23 mmol/L (22-29); Chloride 105 mmol/L (96-108); Cholesterol 139 mg/dL (<200); Estimated Glomerular Filt Rate 41; Glucose Random 275 mg/dL (60-115); HDL Cholesterol 37 mg/dL (>40); LDL Cholesterol Calculated 88 mg/dL (<100); Potassium 4.2 mmol/L (3.3-5.1); Sodium 135 mmol/L (135-145); Total Protein 7.7 g/dL (6.5-8.0); Triglycerides 73 mg/dL (<150)
[2024-01-03 14:49] LABS: Thyroid Stimulating Hormone 2.36 uIU/mL (0.32-4.0)
== END 2024-01-03 12:59 | disposition home or self-care (01) ==
LOC: HO.LAB 12:58
PROVIDERS: PCP Internal Medicine; Visit Provider Internal Medicine
DX: I10 Essential (primary) hypertension (principal); E11.9 Type 2 diabetes mellitus without complications; F10.20 Alcohol dependence, uncomplicated; F19.90 Other psychoactive substance use, unspecified, uncomplicated
CPT/HCPCS: 36415; 80048; 80061; 80076; 84443; 85027

== ENCOUNTER 2025-01-01 14:45 | Outpatient (AMB) | payer MEDICARE, SELFPAY ==
--- NOTE | 2025-01-01 14:48 | MHC.OFFVIS ---
Vital Signs 01/01/25 14:49 Height 5 ft 11 in Weight 246 lb BMI 34.3 BP 126/75 Blood Pressure Location Lt brachial Position Sitting Pulse 93 Pulse Oximetry (%) 93 Oxygen Delivery Method Room Air Intake Visit Reasons: pre colonoscopy/Veronica Intake Note: Patient complex follow up for pre colonoscopy. Veronica jonah was 04/20/2022 and last Colonoscopy was done by Dr. Benavides on 01/30/2023 with 4 to 6 month Colonoscopy recall. Patient denies any GI issues. Dining Car Server Required: No Accompanied by: Self / Same As Patient Allergies No Known Allergies Allergy (Verified 01/01/25 14:48) HPI HPI pre colonoscopy/Veronica: Details: Patient is a to 69-year-old male with PMH of hypertension, substance abuse disorder in remission, colon cancer s/p right colectomy 02/2023. Presents for pre colonoscopy screening Andrea had a colonoscopy in January 2023 that revealed a cancerous polyp, followed by a colon resection. He was advised to have another colonoscopy after one year but did not receive follow-up. Andrea denies any current gastrointestinal symptoms, such as constipation, diarrhea, blood in stools, abdominal pain, nausea, or vomiting. He reports intentional weight loss from 257 lbs to 244 lbs through increased activity and sometimes eating only once a day. Andrea's dietary changes include consuming more vegetables and lean proteins like chicken, beef, eggs, and tuna fish. Andrea stopped drinking alcohol two months ago, previously consuming alcohol from to Sunday, sometimes binge drinking. He has a history of Percocet use 15 years ago and is currently on Suboxone 2mg daily. Andrea denies any recent use of recreational drugs. Patient denies: fever/chills, n/v, appetite changes, pyrosis, regurgitation,dysphasia, unintentional wt loss, ab pain, or melena/hematochezia. Social History: - Diet: Increased intake of vegetables and lean proteins - Alcohol/Tobacco/Drug Use: Stopped alcohol intake two months ago, no smoking or recreational drug use. - Occupation: Uses a bicycle for transportation, suggesting an active lifestyle. [facility] Medical History (Updated 01/01/25 @ 16:58 by Kati Ballard CNP) Class 2 severe obesity with body mass index (BMI) of 35 to 39.9 with serious comorbidity Joint pain Situational anxiety Colon cancer Hypertension Diabetes Alcohol dependence, uncomplicated Substance use disorder Surgical History History of colon resection (~03/13/23) Hx of colonoscopy History of knee surgery Family History Mother Cancer of unknown origin Other Substance use disorder Social History Household Members: None Household Members Other:: lives alone Housing: Apartment Are you a primary caregivers non medical to a significant other at home: No Do you presently have visiting nurse or other home services: No Alcohol intake: current Alcohol intake frequency: does not drink Patient Tobacco Use Status: Never used Tobacco e-Cigarette/Vaping Use: Never Used Second Hand Smoke Exposure: No service: No Current occupational status: retired Cognitive needs: No Hearing needs: No Vision needs: Yes (Reading glasses) Review of Systems Const Reports as per HPI ENT Reports as per HPI Card Reports as per HPI Resp Reports as per HPI GI Reports as per HPI Reports as per HPI Physical Exam Vital Signs: Last Vital Signs Pulse 93 01/01/25 14:49 BP 126/75 01/01/25 14:49 Pulse Ox 93 01/01/25 14:49 Oxygen Delivery Method Room Air 01/01/25 14:49 BMI result Body Mass Index 34.3 Const General: healthy appearing, no acute distress and well developed Nutritional Appearance: well nourished Orientation/consciousness: patient oriented x3 HEENT Head: Yes normal to inspection, Yes normocephalic and Yes atraumatic Face and sinus: Yes normal facial exam Eyes General: appearance normal, both eyes and all related structures Neck Neck: Yes normal visual inspection Resp Effort & Inspection: normal respiratory effort, able to speak in complete sentences, no tracheal deviation and symmetric chest movement Auscultation: clear to auscultation bilaterally Cardio Jugular venous distension: no JVD Rate: regular rate Rhythm: regular rhythm Heart sounds: S1 normal heart sound present, S2 normal heart sound present, no gallops and no murmurs GI Inspection: Yes normal to inspection, No distended and Yes obesity Palpation (GI): Soft to palpation, not firm, nontender and No hepatosplenomegaly present Auscultation: normal bowel sounds Neuro General: patient oriented x3 Gait exam (Neuro): Normal gait present Psych Appearance: grossly normal Mental Status: mental status grossly normal Speech and movement: Normal speech and movement present Affect: normal affect Attitude: cooperative Thought process: Normal thought process present Thought content: Normal thought content present Insight: Good insight present (Psych) Judgement: Good judgement present (Psych) Results Reviewed Results Reviewed: Operative Note Date of Service: 01/30/23 Narrative: Operative Information Procedure Description: Colonoscopy Indication: screening Anesthesia: MAC COLONOSCOPY Instrument: Olympus variable stiffness ADULT scope 190L Colonoscopy Monitoring: Vital signs and clinical assessment, continuous EKG monitoring, Pulse oximetry, Carbon Dioxide monitoring and blood pressure monitoring were done throughout the procedure. Colon withdrawal time was 19 minutes. Procedure: The patient was placed in the left lateral decubitis position and pre-procedure medications were administered. After a digital rectal examination of the ano-rectum, the video colonoscope was inserted into the rectum and advanced through the colon to the cecum/TI. The colonoscope was slowly withdrawn in a retrograde panoramic fashion and the colon mucosa was carefully examined including a retroflexed view of the rectum. Findings and interventions are described below. Procedure Difficulty: easy Findings: Terminal Ileum-normal Cecum: x 2 sessile polyps - 4-6 mm removed with cold forceps Ascending Colon: 12 mm sessile polyp with central depression, did lift easily with eleview injection. Removed en bloc with hot snare and then defect closed with 3 clips. x2 sessile polyps 6-8 mm removed with cold snare. The proximal polyp was retrieved with a net. Transverse Colon -normal Descending Colon:normal Sigmoid Colon: midl diverticulosis Rectum: Retroflexion with small internal hemorrhoids, grade I Anorectum - normal Colon preparation: [place] Bowel Preparation Scale Right colon; 2 Transverse colon: 3 Left colon; 2 (0 = Unprepared colon segment with mucosa not seen due to solid stool that cannot be cleared. 1 = Portion of mucosa of the colon segment seen, but other areas of the colon segment not well seen due to staining, residual stool and/or opaque liquid. 2 = Minor amount of residual staining, small fragments of stool and/or opaque liquid, but mucosa of colon segment seen well. 3 = Entire mucosa of colon segment seen well with no residual staining, small fragments of stool or opaque liquid) Impression and Post Procedure Diagnosis: polyps internal hemorrhoids diverticular disease Plan: High fiber diet leaflet Avoid straining at stool, epsom salts and sitz bath, anusol supps or cream Repeat Colonoscopy in 4-6 months or earlier if clinically indicated, if neoplasia then surgical referral PATHOLOGY Collected: 01/30/23 Location: [facility] Received: 01/30/23 ADDENDUM REPORT Addendum Addendum #1 (B): Intradepartmental review concurs with the diagnosis. Immunohistochemical results as follows: - MLH1: PRESERVED (Intact nuclear expression) - MSH2: PRESERVED (Intact nuclear expression) - MSH6: PRESERVED (Intact nuclear expression) - PMS2: PRESERVED (Intact nuclear expression) NOTE: Results are NEGATIVE for Mismatch repair defect/ Garcia Syndrome-related tumor, however a small percentage of this form of heritable cancer may not be identified by this technique. Correlation with the patient's presentation and family history is recommended. Electronically Signed By: Lynn Vyas 02/07/23 0914 Diagnosis A. Colon, 2 cecal polyps: -Tubular adenoma (one); negative for high-grade dysplasia and carcinoma, and fragment of colonic mucosa with no specific change. B. Colon, proximal ascending, polyp: -Invasive adenocarcinoma with mucinous differentiation, moderately differentiated (5 mm), arising in a tubular adenoma with high-grade dysplasia (see synoptic report at the end of the diagnosis section). -Tumor involves the submucosa and extends to the cauterized base. C. Colon, distal ascending, polyp: Tubular adenoma; negative for high-grade dysplasia and carcinoma. Data Synopsis (B) Tumor Site: Proximal ascending Histologic Type: Adenocarcinoma with mucinous differentiation Histologic Grade: G2 Assessment & Plan Assessment & Plan (1) Encounter for screening colonoscopy: Code(s): Z12.11 - Encounter for screening for malignant neoplasm of colon Category: Medical Plan: Patient needs a follow-up colonoscopy one year post-resection, now overdue. Diagnostic Tests: Prescriptions for laxative tablets and Miralax sent to pharmacy; instructions for Gatorade purchase and clear liquid diet given. Medications: - metformin will need to be held prior to procedure. Nurse to review hold instructions per protocol Patient educated on scheduling process, procedure preparation, including avoiding certain foods and ensuring clear liquid intake Advised on necessity for ride post-procedure due to sedation. Plan follow up after colonoscopy or sooner as neeed Time: I spent a total of 20 minutes on the date of encounter which includes: Preparing to see the patient (reviewed previous documentation, test results and medical history) Performing a medically appropriate exam and/or evaluation Ordering medications, tests, and procedures Documenting clinical information in the health record Medications: New polyethylene glycol 3350 (Miralax) per colonoscopy prep instructions 238 grams PO ONCE 238 grams 0RF bisacodyl Take four tablets once for 1 day per colonoscopy instructions 5 mg PO ONCE 1 day 4 tabs 0RF Coding Level of Care Code Established Pt New Pt Level 3 (99167) Patient Type Established Diagnoses Encounter for screening colonoscopy Z12.11
[2025-01-01 14:49] VITALS: BP 126/75; PULSE 93; O2SAT 93; BMI 34.3
== END 2025-01-01 15:23 | disposition home or self-care (01) ==
LOC: HO.HGI 14:46
PROVIDERS: PCP Internal Medicine; Visit Provider Nurse Practitioner Family
DX: Z85.038 Personal history of other malignant neoplasm of large intestine (principal); Z90.49 Acquired absence of other specified parts of digestive tract; Z12.11 Encounter for screening for malignant neoplasm of colon
CPT/HCPCS: 99203

== ENCOUNTER → 2025-01-01 14:45 | Outpatient (BNVA) | payer MEDICARE, SELFPAY | PROVIDERS: PCP Internal Medicine; Visit Provider Nurse Practitioner Family | DX: Z12.11 Encounter for screening for malignant neoplasm of colon (principal) | CPT/HCPCS: 99202 ==

== ENCOUNTER 2025-04-02 08:15 | Outpatient (AMB) | payer MEDICARE, SELFPAY ==
--- NOTE | 2025-04-02 08:49 | A.OFFPC_ITS ---
Vital Signs 04/02/25 08:51 Height 5 ft 11 in Weight 245 lb 4 oz BMI 34.2 BP 122/76 Blood Pressure Location Rt brachial Position Sitting Pulse 96 Pulse Source Pulse Oximeter Temp 97.3 F Temp Source Temporal Artery Scan Pulse Oximetry (%) 96 Oxygen Delivery Method Room Air Intake Visit Reasons: follow up - see comments Intake Note: Patient is here to follow up on DM, HTN. 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 Required: No Sod Cutter: Not Required per policy Accompanied by: Self / Same As Patient Allergies No Known Allergies Allergy (Verified 04/02/25 08:50) Tobacco use date assessed: 04/02/25 Fall risk assessment: 1 Fall in past year Last assessed Fall Risk: 04/02/25 Dental Screening Dental Screen Date: 04/02/25 Did you have a dental visit in the last 12 months?: No Did you have a dental problem in the last 6 months where you did not have access to dental care?: No Was dental information given to patient?: No [facility] Medical History (Updated 01/01/25 @ 16:58 by Kati Ballard CNP) Class 2 severe obesity with body mass index (BMI) of 35 to 39.9 with serious comorbidity Joint pain Situational anxiety Colon cancer Hypertension Diabetes Alcohol dependence, uncomplicated Substance use disorder Surgical History History of colon resection (~03/13/23) Hx of colonoscopy History of knee surgery Family History Mother Cancer of unknown origin Other Substance use disorder Social History (Updated 04/02/25 @ 08:57 by WOLF Stewart) Household Members: None Household Members Other:: lives alone Housing: Apartment Are you a primary managed care manager to a significant other at home: No Do you presently have visiting nurse or other home services: No Alcohol intake: current Alcohol intake frequency: holidays/special occasions only Patient Tobacco Use Status: Never used Tobacco e-Cigarette/Vaping Use: Never Used Second Hand Smoke Exposure: No service: No Current occupational status: retired Cognitive needs: No Hearing needs: No Vision needs: Yes (Reading glasses) Questionnaire PHQ-9 Over the last 2 weeks, how often have you been bothered by any of the following problems? 1. Little interest or pleasure in doing things: not at all 2. Feeling down, depressed, or hopeless: not at all 3. Trouble falling or staying asleep, or sleeping too much: more than half the days 4. Feeling tired or having little energy: more than half the days 5. Poor appetite or overeating: not at all 6. Feeling bad about yourself - or that you are a failure or have let yourself or your family down: not at all 7. Trouble concentrating on things, such as reading the newspaper or watching television: not at all 8. Moving or speaking so slowly that other people could have noticed. Or the opposite - being so fidgety or restless that you have been moving around a lot more than usual: not at all 9. Thoughts that you would be better off or of hurting yourself in some way: not at all Total score: 4 Depression Screening Interpretation: Positive Depression Screening Done: Yes Source: Developed by Drs. Eugene Domingo, Maritza Muniz, Jose Leyva and colleagues, with an educational carli from [employer]. Thrive Questionnaire Date Thrive assessed: 04/02/25 I am a: Patient What is your living situation today?: I have a steady place to live Within the past 12 months, did the food you bought not last and you didn't have the money to get more?: Never true Within the past 12 months, did you worry whether your food would run out before you got money to buy more?: Never true Do you have trouble paying for medicines?: No Do you have trouble getting transportation to medical appointments?: No Do you have trouble paying your heating and electricity bill?: No Do you have trouble taking care of your child, family member or friend?: No Do you have trouble with day-to-day activities such as bathing, preparing meals, shopping, managing finances, etc.?: No Are you currently unemployed and looking for a job?: No Are you interested in more education?: No Please select the resources that you would like help with: None Currently or been in a relationship where the following occur: No concerns reported THRIVE Score: 0 AUDIT C Alcohol Use Questionnaire (AUDIT-C) 1. How often do you have a drink containing alcohol?: 2-4 times a month 2. How many drinks containing alcohol do you have on a typical day when you are drinking?: 3 or 4 3. How often do you have six or more drinks on one occasion?: Less than monthly Total Score: 4 RUDY-7 AMB Questionnaire RUDY-7 Date RUDY - 7 assessed: 04/02/25 Feeling nervous, anxious, or on edge: 0 = Not at all Not being able to stop or control worryin = Not at all Worrying too much about different things: 0 = Not at all Trouble relaxin = Not at all Being so restless that it is hard to sit still: 0 = Not at all Becoming easily annoyed or irritable: 0 = Not at all Feeling afraid as if something awful might happen: 0 = Not at all Total RUDY-7 score (0-4 normal; 5-9 mild; 10-14 moderate; 15-21 severe): 0 Source: Developed by Drs. Eugene Domingo, Maritza Muniz, Jose Leyva and colleagues, with an educational carli from [employer]. Physical exam (Primary Care) Vital Signs: Last Vital Signs Temp 97.3 F 04/02/25 08:51 Pulse 96 04/02/25 08:51 BP 122/76 04/02/25 08:51 Pulse Ox 96 04/02/25 08:51 Oxygen Delivery Method Room Air 04/02/25 08:51 BMI result Body Mass Index 34.2 Tobacco/Smoking Status: Tobacco use Status Tobacco use date assessed 04/02/25 04/02/25 08:58 Patient Tobacco Use Status Never used Tobacco 04/02/25 08:57 e-Cigarette/Vaping Use Never Used 04/02/25 08:57 PHQ-9: PHQ-9 Score PHQ-9: Total score 4 04/02/25 08:50 Depression Screening Interpretation: Positive Thrive Assessment: Date of Thrive Assessment Date Thrive assessed 04/02/25 04/02/25 08:50 Currently or been in a relationship where the following occur: No concerns reported Results AMB Hemoglobin A1c AMB Hemoglobin A1c 8.8 % Last Edit by WOLF Stewart on 04/02/25 09:01 Results Reviewed Results Reviewed: Laboratory Last Values Hgb A1c (Clinic) 8.8 % (4.0-6.0) H 04/02/25 08:49 Coding Level of Care Code Est Pt Level 4 (65445) Complex EM visit Add On G2211 Diagnoses Diabetes mellitus E11.9 Assessment & Plan Assessment & Plan (1) Diabetes mellitus: Code(s): E11.9 - Type 2 diabetes mellitus without complications Category: Medical Plan: History of Present Illness - The patient is a 70-year-old male presenting for diabetes management and preventative care. - Type 2 Diabetes Mellitus: The patient is on a regimen of metformin, recently increased to two tablets twice daily, and Jardiance once daily. He engages in r egular biking as part of his exercise routine. - The patient is advised to monitor the cost of Jardiance and not to purchase it if it is financially burdensome. - History of Colon Polyps: The patient underwent a colonoscopy two years ago for polyp removal, including one with a suspicious black spot. He is due for a follow-up procedure. Social History - Exercise: The patient regularly bikes approximately 16 miles round trip to his brother's gym. - Substance Use: The patient previously attended a clinic for Suboxone treatment and is currently on a minimal dose. Review of Systems - Endocrine: Reports improved glycemic control with current medication regimen. - Gastrointestinal: Denies current gastrointestinal symptoms but has a history of colon polyps. Physical Exam General: Cooperative and healthy appearing Nutritional Appearance: Well nourished Orientation/consciousness: Patient oriented x3 Limitations: No limitations Head: Normal to inspection General: Appearance normal, both eyes and all related structures Neck: Normal visual inspection Chest: Normal palpation of entire chest wall Respiratory: Normal respiratory effort Neurology: Patient oriented x3 Results Plan 1. Type 2 Diabetes Mellitus - Adjust metformin to two tablets twice daily and add Pioglitazone once daily, ensuring affordability. - Encourage continued biking as part of the exercise regimen. 2. Preventative Care: Colon Cancer Screening - Schedule follow-up colonoscopy as the patient is due for the procedure. Discussion Notes I discussed with the patient the need to increase his metformin dosage and add Jardiance to his diabetes management plan, emphasizing the importance of affordability. We also reviewed his exercise routine and the need for a follow- up colonoscopy. Patient Instructions - Take metformin two tablets in the morning and two at night. - Take Pioglitazone once daily, but do not purchase if it is too expensive. - Continue biking regularly for exercise. - Await contact from the clinic for scheduling a follow-up colonoscopy. Orders: Orders Complete Blood Count no Diff Today E11.9 - Type 2 diabetes mellitus without complications Basic Metabolic Panel Today E11.9 - Type 2 diabetes mellitus without complications Lipid Panel Today E11.9 - Type 2 diabetes mellitus without complications Liver Panel Today E11.9 - Type 2 diabetes mellitus without complications Hemoglobin A1c Today E11.9 - Type 2 diabetes mellitus without complications AMB Hemoglobin A1c Today E11.9 - Type 2 diabetes mellitus without complications Microalbumin, Random (w Creat) Today E11.9 - Type 2 diabetes mellitus without complications UA and rflx microscopic Today E11.9 - Type 2 diabetes mellitus without complications Medications: New pioglitazone 15 mg PO DAILY 90 tabs 1RF Changed From metformin ER 500 mg PO BID 90 days 180 tabs 1RF To metformin ER 1,000 mg (2 x 500 mg) PO BID 360 tabs 1RF 90 days
[2025-04-02 08:51] VITALS: BP 122/76; PULSE 96; TEMP 36.3; O2SAT 96; BMI 34.2
== END 2025-04-02 09:35 | disposition home or self-care (01) ==
LOC: HO.HMCH 08:15
PROVIDERS: PCP Internal Medicine; Visit Provider Internal Medicine
DX: E11.9 Type 2 diabetes mellitus without complications (principal)

== ENCOUNTER → 2025-04-02 08:15 | Outpatient (BNVA) | payer MEDICARE, SELFPAY | PROVIDERS: PCP Internal Medicine; Visit Provider Internal Medicine | DX: E11.9 Type 2 diabetes mellitus without complications (principal); Z79.84 Long term (current) use of oral hypoglycemic drugs; Z13.31 Encounter for screening for depression; Z13.39 Encounter for screening examination for other mental health and behavioral disorders | CPT/HCPCS: 83036; 96127; 99212 ==

== ENCOUNTER 2025-04-06 11:38 | Outpatient (REF) | payer MEDICARE, SELFPAY ==
[2025-04-06 12:13] LABS: Hematocrit 35.5 % (42.0-52.0); Hemoglobin 12.3 g/dl (14.0-18.0); Mean Corpuscular HGB Conc 34.6 g/dl (31.0-36.0); Mean Corpuscular Hemoglobin 30.8 pg (27.0-33.0); Mean Corpuscular Volume 89.0 fL (80.0-98.0); NRBC Abs Auto 0.000 X10*3/uL (0.0-0.012); NRBC Pct Auto 0.0 /100WBC (0.0-0.2); Platelet Count 201 X10*3/uL (160-400); Red Blood Count 3.99 X10*6/uL (4.60-5.80); White Blood Count 5.7 X10*3/uL (4.8-10.8)
[2025-04-06 12:16] LABS: Appearance Urine Clear; Glucose Urine UA >=1000 mg/dL (Negative); PH 5.5 (5.0-9.0); Specific Gravity - Urine >= 1.030 (1.005-1.025); UMIC TRIGGER UA YES
[2025-04-06 12:23] LABS: Hemoglobin A1C 234.1420 umol/L; Total Hemoglobin (HGBA1C) 3246.7872 umol/L
[2025-04-06 12:47] LABS: Alanine Aminotransferase 45 U/L (0-40); Albumin Level 4.6 g/dL (3.5-5.0); Alkaline Phosphatase 84 U/L (39-117); Anion Gap 12 (12-20); Aspartate Amino Transferase 40 U/L (5-37); Blood Urea Nitrogen 23 mg/dL (9-16); Calcium 8.8 mg/dL (8.4-10.2); Carbon Dioxide 25 mmol/L (22-29); Chloride 106 mmol/L (96-108); Cholesterol 169 mg/dL (<200); Estimated Glomerular Filt Rate 59; HDL Cholesterol 46 mg/dL (>40); Potassium 4.6 mmol/L (3.3-5.1); Sodium 138 mmol/L (135-145); Total Protein 7.8 g/dL (6.5-8.0); Triglycerides 68 mg/dL (<150)
[2025-04-06 12:49] LABS: Microalbum/Creatinine Ratio Ur 23.6 ug/mg cr (<30)
== END 2025-04-06 11:39 | disposition home or self-care (01) ==
LOC: HO.LAB 11:38
PROVIDERS: PCP Internal Medicine; Visit Provider Internal Medicine
DX: E11.9 Type 2 diabetes mellitus without complications (principal)
CPT/HCPCS: 36415; 80048; 80061; 80076; 81001; 82043; 82570; 83036; 85027

== ENCOUNTER 2025-05-31 08:09 | Emergency (ER) | payer MEDICARE, SELFPAY ==
--- NOTE | ~2025-05-31 | XR_ITS ---
CLINICAL HISTORY: pain, injury 4 view left wrist Comparison: None provided Findings: Bones intact. No dislocations. Mild degenerative changes. No radiopaque foreign body. IMPRESSION: 1. No acute findings This document has been electronically signed by: Augustine Rooney MD on 05/31/2025 12:38:44
--- NOTE | ~2025-05-31 | XR_ITS ---
CLINICAL HISTORY: fall, pain and swelling 3 view left elbow Comparison: None provided Findings: There is a mildly displaced fracture involving the region of the coronoid process of the proximal ulna. Small joint effusion. 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 No radiopaque foreign body. IMPRESSION: Mildly displaced fracture involving the region of the coronoid process of the proximal ulna. Small joint effusion. This document has been electronically signed by: Augustine Rooney MD on 05/31/2025 10:25:06
--- NOTE | ~2025-05-31 | XR_ITS ---
CLINICAL HISTORY: fall, pain 3 view left hand Comparison: None provided Findings: Bones intact. No dislocations. Moderate degenerative change of the interphalangeal joints. No erosions. No radiopaque foreign body. IMPRESSION: 1. No acute findings This document has been electronically signed by: Augustine Rooney MD on 05/31/2025 12:01:14
[2025-05-31 08:18] VITALS: BP 142/72; PULSE 91; RESP 18; TEMP 36.6; O2SAT 98; BMI 32.8
--- NOTE | 2025-05-31 08:42 | ED_ITS ---
HPI - Extremity Problem General Chief complaint: Extremity Injury, Upper Stated complaint: Over extended L elbow Time Seen by Provider: 05/31/25 08:42 Source: patient Mode of arrival: ambulatory Limitations: no limitations History of Present Illness ED Provider: Renetta Nolen PA-C HPI Narrative: Patient is a 70 year old assigned male at with a history of DM, substance use disorder, and alcohol use presenting to the emergency department today with left elbow, left wrist, and left hand pain after a fall. Patient states that yesterday he tripped and fell backwards onto an outstretched left arm. Patient denies any head strike or loss of consciousness with the incident. Patient denies any other complaints at this time. Related Data Home Medications ?Medication ?Instructions ?Recorded ?Confirmed buprenorphine 2 mg-naloxone 0.5 mg 2 mg sublingual [place] LY 10/26/21 04/14/23 sublingual film (Suboxone) Previous Rx's ?Medication ?Instructions ?Recorded blood-glucose meter #1 ea 11/17/22 amlodipine 10 mg tablet 10 mg PO DAILY #30 tabs 12/21 09/15 bisacodyl 5 mg tablet,delayed 5 mg PO ONCE 1 day #4 ta bs 01/01/25 release polyethylene glycol 3350 17 238 g PO ONCE #238 grams 0 01/01/25 gram/dose oral powder (Miralax) metformin 500 mg tablet,extended 1,000 mg (2 x 500 mg) PO BID 90 04/02/25 release 24 hr days #360 tabs pioglitazone 15 mg tablet 15 mg PO DAILY #90 tabs 03/23 08/16 lisinopril 10 mg tablet 10 mg PO DAILY #90 tabs 03/23 11/14 amoxicillin 875 mg-potassium 1 tab PO BID 7 days #14 t abs 05/31/25 clavulanate 125 mg tablet Allergies Allergy/AdvReac Type Severity Reaction Status Date / Time No Known Allergies Allergy Verified 05/31/25 08:22 Review of Systems Constitutional: Constitutional: Reports as per HPI Eyes: Eyes: Reports as per HPI ENT: Reports as per HPI Cardiovascular: Cardiovascular: Reports as per HPI Respiratory: Respiratory: Reports as per HPI Gastrointestinal: Gastrointestinal: Reports as per HPI Genitourinary: Genitourinary: Reports as per HPI Musculoskeletal: Musculoskeletal: Reports as per HPI Integumentary/Breasts: Skin/Breast: Reports as per HPI Neurologic: Reports as per HPI Psychiatric: Psychiatric: Reports as per HPI Endocrine: Endocrine: Reports as per HPI Hematologic/Lymphatic: Hematologic/Lymphatic: Reports as per HPI Allergic/Immunologic: Allergic/Immunologic: Reports as per HPI [facility] Past Medical History Attestation statement: The following information was validated with the patient. Source: old records reviewed and nursing notes reviewed Medical History Class 2 severe obesity with body mass index (BMI) of 35 to 39.9 with serious comorbidity Joint pain Situational anxiety Colon cancer Hypertension Diabetes Alcohol dependence, uncomplicated Substance use disorder Surgical History History of colon resection (~03/13/23) Hx of colonoscopy History of knee surgery Family History Family History Mother Cancer of unknown origin Other Substance use disorder Social History Social History Household Members: None Household Members Other:: lives alone Housing: Apartment Are you a primary tire care manager to a significant other at home: No Do you presently have visiting nurse or other home services: No Alcohol intake: current Alcohol intake frequency: holidays/special occasions only Patient Tobacco Use Status: Never used Tobacco e-Cigarette/Vaping Use: Never Used Second Hand Smoke Exposure: No Advance Directives: No Advance Directives Information Provided: Yes Do you have a plan to hurt others: No Plan service: No Current occupational status: retired Cognitive needs: No Hearing needs: No Vision needs: Yes (Reading glasses) Physical Exam Vital Signs: Vital Signs: Last Vital Signs Temp 97.9 F 05/31/25 10:00 Pulse 72 05/31/25 10:00 Resp 16 05/31/25 10:00 BP 151/78 H 05/31/25 10:00 Pulse Ox 98 05/31/25 10:00 O2 Del Method Room Air 05/31/25 10:00 BMI result Body Mass Index 32.8 Const: General: cooperative, no acute distress, alert and awake Nutritional Appearance: well nourished Orientation/consciousness: patient oriented x3 HEENT: Head: Yes normal to inspection and Yes atraumatic Ears: hearing grossly normal bilaterally and external ears normal General nose exam: Normal external nose present, no nasal discharge noted and no epistaxis Face and sinus: Yes normal facial exam, No abrasion and No laceration Mouth: Normal oral and palatal mucosa present, no drooling and no muffled voice Eyes: General: appearance normal, both eyes and all related structures Periorbital: periorbital findings normal Eyelids: Yes eyelids normal Conjunctivae: conjunctivae normal Pupils: Equal, round and reactive pupils present EOM: EOMs intact bilaterally Neck: Neck: Yes normal visual inspection and Yes full ROM Resp: Effort & Inspection: normal respiratory effort and able to speak in complete sentences Neuro: General: patient oriented x3, moves all extremities and CN's II-XI intact bilaterally Cranial nerves: Yes Equal, round and reactive pupils present Cognition (Neuro): normal cognition Extrem: Other: decreased left hand, wrist, and elbow range of motion secondary to pain small abrasion to the left posterior elbow General: Yes capillary refill normal Psych: Appearance: grossly normal Mental Status: mental status grossly normal Affect: normal affect Attitude: cooperative Thought process: Normal thought process present Thought content: Normal thought content present Insight: Good insight present (Psych) Medical Decision Making Medical Decision Making MDM Narrative: Patient is a 70 year old assigned male at with a history of DM, substance use disorder, and alcohol use presenting to the emergency department today with left elbow, left wrist, and left hand pain after a fall. Patient's physical exam was as noted in the physical exam portion of this note. Patient's left elbow x-ray showed a mildly displaced fracture involving the region of the coronoid process of the proximal ulnar with a small joint effusion. Patient's left wrist + hand x-ray got read as negative however, I appreciated a possible small avulsion fracture of the dorsal wrist. I spoke with the orthopedic team who recommended a posterior long arm splint with the extremity in supination and having the patient follow up on an outpatient basis. Given the patient's abrasion near the fracture - will also give PO prophlylactic antibiotic. Patient's left upper extremity was splinted in a long posterior arm splint without incident. Patient's PMS was intact prior to and after splint placement. Patient's left upper extremity was placed in a sling, without incident. Patient's PMS was intact prior to and after sling placement. I explained my physical exam findings as well as all test results to the patient. I answered all questions asked by the patient. I stressed the importance of the patient taking his medication as directed (either prescribed or as the over the counter packaging recommends). I stressed the importance of the patient following up with his primary care provider and the orthopedic team. I stressed the importance of the patient returning to the emergency department immediately if his symptoms were to worsen or if he were to develop any dizziness, shortness of breath, difficulty breathing, chest pain, blurry vision, loss of vision, nausea, vomiting, abdominal pain, fever, chills, back pain, or any other complaints. Patient verbalized agreement and understanding with this treatment plan and discharge. Differential Diagnosis Differential Diagnoses: The differential diagnosis associated with the presentation includes L elbow fracture Left wrist fracture Left wrist sprain Left hand fracture Left hand sprain Admission/Observation Consideration of admission/observation: Escalation of care including admission/observation considered Patient would have been admitted to the hospital had his work up had any findings where hospital admission was appropriate and his clinical presentation warranted hospital admission. Consult Healthcare Provider Management of the patient was discussed with: Business Analyst [employer] (I spoke with the orthopedic team as noted in the [facility] Rationale portion of this note. ) Independent Interpretation I performed an independent interpretation of an: Plain X-Ray Interpretation: My interpretation of these images are in the MDM Rationale portion of this note, the radiologist's impression of these imaging studies are below. CLINICAL HISTORY: pain, injury 4 view left wrist Comparison: None provided Findings: Bones intact. No dislocations. Mild degenerative changes. No radiopaque foreign body. IMPRESSION: 1. No acute findings This document has been electronically signed by: Augustine Rooney MD on 05/31/2025 12:38:44 Dictated By: Augustine Rooney MD Signed By: Electronically signed by Augustine Rooney MD 05/31/25 1239 Reason for Exam: fall, pain CLINICAL HISTORY: fall, pain 3 view left hand Comparison: None provided Findings: Bones intact. No dislocations. Moderate degenerative change of the interphalangeal joints. No erosions. No radiopaque foreign body. IMPRESSION: 1. No acute findings This document has been electronically signed by: Augustine Rooney MD on 05/31/2025 12:01:14 Dictated By: Augustine Rooney MD Signed By: Electronically signed by Augustine Rooney MD 05/31/25 1202 Reason for Exam: pain, injury CLINICAL HISTORY: pain, injury 4 view left wrist Comparison: None provided Findings: Bones intact. No dislocations. Mild degenerative changes. No radiopaque foreign body. IMPRESSION: 1. No acute findings This document has been electronically signed by: Augustine Rooney MD on 05/31/2025 12:38:44 Dictated By: Augustine Rooney MD Signed By: Electronically signed by Augustine Rooney MD 05/31/25 1239 Radiology Impression Discussion of test interpretation with radiology: I have reviewed the radiologist's reading. Prescription Management I considered prescription management with: Antibiotic (given patient's abrasion near fracture site - patient prescribed prophylactic an antibiotic) Critical Care Time Critical Care Time Critical Care Time: Yes Total Critical Care Time: 34 Attestation: I spent 34 minutes of Critical Care Time with this patient. This does not include time spent on separately reported billable procedures. Discharge Plan Discharge Clinical Impression: Elbow fracture, Left wrist sprain Patient Disposition: Home, Self-Care Instructions: Wrist Injury (ED), Elbow Fracture (DC), How to Use a Sling (ED) Additional Instructions: Do NOT stick anything down / into your splint. Do NOT get your splint wet. Do NOT remove your splint. If you have any change in sensation, movement, or color of your left fingers - you may loosen the outer CAROLE wraps. If you find yourself loosening the CAROLE wraps to the point of seeing the white splint material underneath - STOP and proceed to your closest Emergency Department, immediately. Follow up with your primary care provider and the orthopedic team. Take your antibiotic as prescribed. Return to the emergency department immediately if your symptoms worsen or if you develop any numbness, tingling, dizziness, shortness of breath, difficulty breathing, chest pain, blurry vision, loss of vision, nausea, vomiting, abdominal pain, fever, chills, back pain, or any other complaints. Please see the information below about our Patient Portal. If you are not yet enrolled in the [facility] Patient Portal, you will receive an enrollment email invitation following your visit to any [facility] setting. You may also self-enroll in the Patient Portal by visiting our website: [email or web address] The following information is required to access the Patient Portal: - Your [facility] Medical Record Number - Your personal home email address (must match what is in your electronic medical record, Registration staff can assist with this) - Name - Date of Capabilities of the Patient Portal: - Message some providers - View upcoming appointments - Access your health summary, medical history, and visit history - View current conditions and allergies - View procedure and lab results - View your medications, including guidelines, side effects, and precautions - Complete pre-appointment questionnaires requested by your provider - Ready summary reports of your office visits and procedures To access the Patient Portal Mobile Todd, follow these directions: - Search Mode Media in the Todd Store or Google [employer] Store - Download the Todd - Search for [facility] - Enter your login/password Prescriptions: New amoxicillin-pot clavulanate 875-125 mg tablet 1 tab PO BID 7 Days Qty: 14 0RF No Action lisinopril 10 mg tablet 10 mg PO DAILY Qty: 90 0RF amlodipine 10 mg tablet 10 mg PO DAILY Qty: 30 0RF Protocol: Hold for SBP< HOLD for SBP < : 90 buprenorphine-naloxone [Suboxone] 2-0.5 mg film 2 mg sublingual DAILY (DME) blood-glucose meter Kit See Rx Instructions .ROUTE .MEDSUPPLY Qty: 1 0RF Rx Instructions: As directed bisacodyl 5 mg tablet,delayed release (DR/EC) 5 mg PO ONCE 1 Days Qty: 4 0RF Rx Instructions: Take four tablets once for 1 day per colonoscopy instructions polyethylene glycol 3350 [Miralax] 17 gram/dose powder 238 g PO ONCE Qty: 238 0RF Rx Instructions: per colonoscopy prep instructions pioglitazone 15 mg tablet 15 mg PO DAILY Qty: 90 1RF metformin 500 mg tablet extended release 24 hr 1,000 mg PO BID 90 Days Qty: 360 1RF Referrals: [facility] Orthopedic Surgeons [Provider Group] Referral Note: Call to establish and follow up with the orthopedic team for your left elbow fracture / break and left wrist injury. Jay Rogers MD [Primary Care Provider, Internal Medicine] Discharge Date/Time: 05/31/25 13:37 Print Language: Samoan
[2025-05-31 10:00] VITALS: BP 151/78; PULSE 72; RESP 16; TEMP 36.6; O2SAT 98
== END 2025-05-31 13:37 | disposition home or self-care (01) ==
PROVIDERS: Emergency Provider Emergency Medicine Emergency Medical Services; PCP Internal Medicine
DX: S42.402A Unspecified fracture of lower end of left humerus, initial encounter for closed fracture (principal); M25.522 Pain in left elbow; M79.642 Pain in left hand; X58.XXXA Exposure to other specified factors, initial encounter; Y93.9 Activity, unspecified; Y92.9 Unspecified place or not applicable; Y99.8 Other external cause status; Z79.899 Other long term (current) drug therapy
CPT/HCPCS: 73080; 73110; 73130; 99283

== ENCOUNTER → 2025-05-31 08:30 | Outpatient (BNV) | payer MEDICARE, SELFPAY | PROVIDERS: Emergency Provider Emergency Medicine Emergency Medical Services; PCP Internal Medicine; Visit Provider Radiology Vascular & Interventional Radiology | DX: M25.532 Pain in left wrist (principal); M79.642 Pain in left hand; M25.522 Pain in left elbow; S69.92XA Unspecified injury of left wrist, hand and finger(s), initial encounter; W19.XXXA Unspecified fall, initial encounter | CPT/HCPCS: 73080; 73110; 73130 ==

== ENCOUNTER 2025-06-12 08:42 | Outpatient (REF) | payer MEDICARE, SELFPAY ==
--- NOTE | ~2025-06-12 | XR_ITS ---
EXAMINATION: XR ELBOW, LEFT CLINICAL INFORMATION: M25.522 - Pain in left elbow , follow-up fracture COMPARISON: May 31, 2025 TECHNIQUE: AP, lateral, and oblique views of the left elbow. FINDINGS: Again seen is a longitudinal fracture through the medial aspect of the coracoid. There is 4 mm medial step-off, previously 8 mm. There is also cephalad distraction of the fragmented medial coronoid fragment visible on the lateral examination Ossifications visualized in the soft tissues medial and lateral to the distal humerus are likely chronic in nature. There is a bony outgrowth involving the anterior medial aspect of the distal humerus curving towards the joint line with a supracondylar process of humerus. There is reticulation of the soft tissues medial and dorsal to the elbow joint consistent with edema/ecchymosis. There is anterior displacement of the anterior fat pad of the distal humerus. XR/XR elbow LT min 3V IMPRESSION: Medial coronoid fracture with cephalad distraction. Joint effusion with soft tissue swelling/ecchymosis. Supracondylar process of humerus. These are typically asymptomatic, but can result in compression of the median nerve or brachial vessels. Electronically signed by: Dejuan Mims MD 06/12/2025 12:35 PM EST
--- NOTE | ~2025-06-12 | XR_ITS ---
EXAMINATION: XR WRIST, LEFT CLINICAL INFORMATION: M25.532 - Pain in left wrist COMPARISON: May 31, 2025 TECHNIQUE: PA, lateral, oblique, and scaphoid views of the left wrist. FINDINGS: Again seen is a small ossification located on the radial side of trapezium. There is no joint diastases and no cortical bone step-off. On the lateral view, there is a small somewhat linear bony fragment dorsal to the mid carpus. This was not clearly evident on the prior x-ray likely due to positioning. XR/XR wrist LT w scaphoid IMPRESSION: There is a triquetral avulsion fracture. It is age indeterminate. Fracture is not identified on the prior wrist x-ray. However, this could be related to positioning during the x-ray and it may have been present on the prior x-ray but obscured. Acute versus subacute versus chronic triquetral avulsion fracture. Correlate with history and symptoms. Electronically signed by: Dejuan Mims MD 06/12/2025 12:44 PM [facility]
== END 2025-06-12 08:43 | disposition home or self-care (01) ==
LOC: HO.HOSX 08:42
DX: Z13.89 Encounter for screening for other disorder (principal)
CPT/HCPCS: 73080; 73110

== ENCOUNTER 2025-06-12 11:56 | Outpatient (AMB) | payer MEDICARE, SELFPAY ==
[2025-06-12 12:56] VITALS: BMI 32.8
--- NOTE | 2025-06-12 12:56 | MHC.OFFVIS ---
Vital Signs 06/12/25 12:56 Height 5 ft 11 in Weight 235 lb BMI 32.8 Intake Visit Reasons: ED/INFORMATION ASSURANCE OFFICER:Left Proximal Ulnar Fracture, DOI: 05/30/25 Intake Note: Andrea is a 70 year old right hand dominant male, new patient, who presents today for an ED Follow Up status post Left Proximal Ulnar Fracture, DOI: 05/30/25. At the ED, he was placed in a long posterior arm splint and given a sling. Today, patient complains of pain on the posterior aspect of his left elbow with associated numbness. He also has swelling on the dorsal aspect of his left wrist. He is currently taking Ibuprofen with some relief. Patient denies any previous injuries or surgeries to the left hand. Patient has a history of Type 2 Diabetes Mellitus, Last A1C done 04/02/25 - 8.8% Allergies No Known Allergies Allergy (Verified 06/12/25 13:01) HPI HPI ED/INFORMATION ASSURANCE OFFICER:Left Proximal Ulnar Fracture, DOI: 05/30/25: Details: Andrea is a 70 year old right hand dominant male, new patient, who presents today for an ED Follow Up status post Left Proximal Ulnar Fracture, DOI: 05/30/25. At the ED, he was placed in a long posterior arm splint and given a sling. Today, patient complains of pain on the posterior aspect of his left elbow with associated numbness. He also has swelling on the dorsal aspect of his left wrist. Patient does report that his pain has improved drastically since previous evaluation in the ED, and he has minimal if any tenderness to palpation about the wrist and elbow. He is currently taking Ibuprofen with some relief. Patient denies any previous injuries or surgeries to the left hand. The patient does state that he has been trying to get back to playing hockey, in his lost a significant amount of weight in order to try to do so. Patient has a history of Type 2 Diabetes Mellitus, Last A1C done 04/02/25 - 8.8% [facility] Medical History Class 2 severe obesity with body mass index (BMI) of 35 to 39.9 with serious comorbidity Joint pain Situational anxiety Colon cancer Hypertension Diabetes Alcohol dependence, uncomplicated Substance use disorder Surgical History History of colon resection (~03/13/23) Hx of colonoscopy History of knee surgery Family History Mother Cancer of unknown origin Other Substance use disorder Social History Household Members: None Household Members Other:: lives alone Housing: Apartment Are you a primary critical care cns to a significant other at home: No Do you presently have visiting nurse or other home services: No Alcohol intake: current Alcohol intake frequency: holidays/special occasions only Patient Tobacco Use Status: Never used Tobacco e-Cigarette/Vaping Use: Never Used Second Hand Smoke Exposure: No service: No Current occupational status: retired Cognitive needs: No Hearing needs: No Vision needs: Yes (Reading glasses) Review of Systems Const All systems reviewed & are unremarkable except as noted in HPI and below Physical Exam Vital Signs: BMI result Body Mass Index 32.8 Extrem Other: Patient is alert, oriented, and in no acute distress. Neuro: Normal sensation of the tips of all digits of the left hand at this time Vascular: Cap refill brisk Pain: No tenderness to palpation about left proximal ulna, radial head, olecranon process No tenderness to palpation of the dorsal aspect of the left hand and wrist Patient reports pain with even minimal attempted range of motion of the left elbow ROM: Patient is able to flex and extend the digits of the left hand fully and without difficulty Skin: No lacerations or abrasions. General: No ecchymosis, erythema, or evidence of infection. Psych: Appears grossly normal Affect normal Attitude cooperative Results Reviewed Results Reviewed: X-rays obtained in the office today and independently reviewed by me, Samy Calvin PA-C, demonstrate displaced grade 2-3 coronoid process fracture of the left ulna as well as a minimally displaced chip fracture of the left triquetrum. Assessment & Plan Assessment & Plan (1) Fracture of coronoid process of ulna, left, closed: Code(s): S52.042A - Displaced fracture of coronoid process of left ulna, initial encounter for closed fracture Category: Medical (2) Chip fracture of triquetrum of left wrist: Code(s): S62.112A - Displaced fracture of triquetrum [cuneiform] bone, left wrist, initial encounter for closed fracture Category: Medical Plan 1. Displaced coronoid process fracture of the left ulna Date of injury 05/31/2025 Patient is educated about this condition Patient is educated about the typical diagnostic and treatment course At this time, due to the displaced and comminuted nature of the fracture, patient is referred for stat CT scan of the left elbow in order to assess position and grade of fracture to determine need for potential further surgical intervention Stat CT ordered Patient will follow-up after CT scan for results review and discussion of further treatment options if indicated Patient is placed into a sling at this time, should remain in sling until follow-up Patient understands this and is amenable to this plan 2. Chip fracture of left triquetrum Date of injury 05/31/2025 Patient is educated about this condition Patient is educated about the typical treatment course At this time, patient is provided with a Velcro wrist splint to wear with activity, can remove to work on gentle range of motion of the left wrist Nonweightbearing in left upper extremity due to both of the fractures Patient states that he knows he will have to be out of hockey, which is accurate Patient understands this in his amenable to this plan Follow-up after CT scan for results review and discussion of further treatment options if indicated, sooner with any acute concerns Orders: Orders XR wrist LT w scaphoid Today M25.532 - Pain in left wrist CT elbow LT wo IV con Today S52.042A - Displaced fracture of coronoid process of left ulna, initial encounter for closed fracture XR elbow LT min 3V Today M25.522 - Pain in left elbow Coding Level of Care Code New Pt Level 4 (74516) Diagnoses Fracture of coronoid process of ulna, left, closed S52.042A Chip fracture of triquetrum of left wrist S62.112A
== END 2025-06-12 13:56 | disposition home or self-care (01) ==
LOC: HO.HOS 11:57
PROVIDERS: PCP Internal Medicine
DX: S52.042A Displaced fracture of coronoid process of left ulna, initial encounter for closed fracture (principal); S62.112A Displaced fracture of triquetrum [cuneiform] bone, left wrist, initial encounter for closed fracture
CPT/HCPCS: 99204

== ENCOUNTER → 2025-06-12 11:59 | Outpatient (BNV) | payer MEDICARE, SELFPAY | PROVIDERS: Visit Provider Radiology Diagnostic Radiology | DX: S52.042A Displaced fracture of coronoid process of left ulna, initial encounter for closed fracture (principal); M25.532 Pain in left wrist | CPT/HCPCS: 73080; 73110; 73200 ==

== ENCOUNTER 2025-06-12 15:22 | Outpatient (REF) | payer MEDICARE, SELFPAY ==
--- NOTE | ~2025-06-12 | CT_ITS ---
CLINICAL HISTORY: S52.042A - Displaced fracture of coronoid process of left ulna, initial ... --- Additional Notes or Special Instructions: Grade 2 [address] LEFT ELBOW WITHOUT CONTRAST Comparison: DX/SR - XR ELBOW 3 VIEWS LEFT - 06/12/25 11:59 EST Findings: Soft tissue swelling and subcutaneous edema. Large elbow effusion. Comminuted fracture in the olecranon with a large articulating defect. Multiple small bony fragments are displaced into the antecubital fossa with the coronoid process as the donor site. Concomitant dystrophic calcifications are nonspecific. Several small avulsion fractures posteriorly with the posterior superior olecranon as the donor site. No acute fracture is identified in the included humerus and radius. Small exostosis in the anterior distal humerus. No dislocation. 7 mm posterior olecranon spurs /triceps tendon enthesophyte. Mild degenerative changes in the ulnohumeral joint. No foreign body. Impression: 1. Comminuted intra-articular fracture in the proximal ulna with multiple avulsion fractures involving the coronoid process and the posterior superior olecranon. This document has been electronically signed by: Anuradha Nielson DO on 06/12/2025 18:04:08
== END 2025-06-12 15:23 | disposition home or self-care (01) ==
LOC: HO.CT 15:22
DX: S52.042A Displaced fracture of coronoid process of left ulna, initial encounter for closed fracture (principal)
CPT/HCPCS: 73080; 73110; 73200

== ENCOUNTER 2025-06-26 11:25 | Outpatient (REF) | payer MEDICARE, SELFPAY ==
--- NOTE | ~2025-06-26 | XR_ITS ---
EXAMINATION: XR ELBOW, LEFT CLINICAL INFORMATION: M25.522 - Pain in left elbow COMPARISON: 06/12/2025 TECHNIQUE: AP, lateral, and oblique views of the left elbow. FINDINGS: Again seen is a mildly distracted medial coronoid process fragment with with anterior displacement of the osteochondral fragment. There is possible developing new bone formation between the deep margin of the medial coronoid fragment and donor site. There is also anterior displacement of the coronoid process tip. There is a bony outgrowth involving the anterior medial aspect of the distal humerus curving towards the joint line consistent with a supracondylar process of humerus. There is an enthesophyte involving the medial humeral epicondyle. There is soft tissue ossification medial and lateral to the distal humerus. XR/XR elbow LT min 3V IMPRESSION: Intra-articular coronoid fracture with distracted medial osteochondral fragment with possible new bone formation between the deep margin of the fragments and donor site. Supracondylar process of the humerus. Electronically signed by: Dejuan Mims MD 06/26/2025 12:27 PM [facility]
== END 2025-06-26 11:26 | disposition home or self-care (01) ==
LOC: HO.HOSX 11:25
DX: S52.042A Displaced fracture of coronoid process of left ulna, initial encounter for closed fracture (principal); X58.XXXA Exposure to other specified factors, initial encounter
CPT/HCPCS: 73080; 99212

== ENCOUNTER 2025-06-26 11:25 | Outpatient (AMB) | payer MEDICARE, SELFPAY ==
--- NOTE | 2025-06-26 11:39 | MHC.OFFVIS ---
Vital Signs 06/26/25 11:43 Height 5 ft 11 in Weight 235 lb BMI 32.8 Intake Visit Reasons: OV-CT Review elbow LT Intake Note: Andrea is a 70 year old right hand dominant male who presents today for a CT Scan Review status post Left Ulnar Fracture, DOI: 05/30/25. Patient was placed in a sling at his last visit with instructions to use it until follow-up. Allergies No Known Allergies Allergy (Verified 06/26/25 11:43) HPI HPI OV-CT Review elbow LT: Details: Andrea is a 70 year old right hand dominant male who presents today for a CT Scan Review status post Left Ulnar Fracture, DOI: 05/30/25. Patient was placed in a sling at his last visit with instructions to use it until follow-up. Patient states that his pain has improved very significantly from previous evaluation, and does state that he was doing some resistance training with bands. Patient states his range of motion has also improved significantly, and he is able to flex to approximately 100 degrees and extend to approximately 20 degrees. No other acute complaints or concerns at this time. [facility] Medical History Class 2 severe obesity with body mass index (BMI) of 35 to 39.9 with serious comorbidity Joint pain Situational anxiety Colon cancer Hypertension Diabetes Alcohol dependence, uncomplicated Substance use disorder Surgical History History of colon resection (~03/13/23) Hx of colonoscopy History of knee surgery Family History Mother Cancer of unknown origin Other Substance use disorder Social History Household Members: None Household Members Other:: lives alone Housing: Apartment Are you a primary career development engineer to a significant other at home: No Do you presently have visiting nurse or other home services: No Alcohol intake: current Alcohol intake frequency: holidays/special occasions only Patient Tobacco Use Status: Never used Tobacco e-Cigarette/Vaping Use: Never Used Second Hand Smoke Exposure: No service: No Current occupational status: retired Cognitive needs: No Hearing needs: No Vision needs: Yes (Reading glasses) Review of Systems Const All systems reviewed & are unremarkable except as noted in HPI and below Physical Exam Vital Signs: BMI result Body Mass Index 32.8 Extrem Other: Patient is alert, oriented, and in no acute distress. Neuro: Normal sensation of the tips of all digits of the left hand at this time Vascular: Cap refill brisk Pain: No tenderness to palpation about left proximal ulna, radial head, olecranon process No tenderness to palpation of the dorsal aspect of the left hand and wrist Patient reports no discomfort with range of motion of the left elbow ROM: Patient is able to flex and extend the digits of the left hand fully and without difficulty Patient is able to flex the left elbow to approximately 100 degrees and extend to approximately 20 degrees without difficulty Skin: No lacerations or abrasions. General: Edema present at last visit appears to have resolved with the left elbow No ecchymosis, erythema, or evidence of infection. Psych: Appears grossly normal Affect normal Attitude cooperative Office Procedures AMB Fracture Care Fracture Billing Code: Fracture Billing Code Results Reviewed Results Reviewed: X-rays obtained in the office today and independently reviewed by me, Samy Calvin PA-C, demonstrate displaced coronoid process fracture of the left elbow CT scan also demonstrates displaced coronoid process fracture of the left elbow, however this appears to mostly involve the medial aspect of the coronoid process and does not appear to be particularly concerning for severe elbow instability. This image was also discussed with Dr. Larsen prior to the patient's visit, who agreed with this interpretation. Assessment & Plan Assessment & Plan (1) Fracture of coronoid process of ulna, left, closed: Code(s): S52.042A - Displaced fracture of coronoid process of left ulna, initial encounter for closed fracture Category: Medical Plan 1. Left coronoid process fracture Date of injury 05/31/2025 Patient appears to be recovering fairly well from his injury Patient is educated about the typical recovery course Patient is educated that he should begin working on range of motion of the left elbow, however he should continue to be all but nonweightbearing in the left arm to prevent elbow dislocation Patient is educated he should hold off on any resistance training at the very least until follow-up However, patient is referred to OT to begin working on range of motion of the left elbow, with nonweightbearing status Patient understands this and is amenable to this plan Follow-up in 4 weeks with repeat x-rays for reassessment, sooner with any acute concerns Orders: Orders XR elbow LT min 3V Today M25.522 - Pain in left elbow OT Evaluation and Treatment Today S52.042A - Displaced fracture of coronoid process of left ulna, initial encounter for closed fracture Coding Level of Care Code Est Pt Level 3 (03696) Diagnoses Fracture of coronoid process of ulna, left, closed S52.042A CPT Codes Fracture Care - Fracture Billing Code: Fracture Billing Code ([id number])
[2025-06-26 11:43] VITALS: BMI 32.8
== END 2025-06-26 12:20 | disposition home or self-care (01) ==
LOC: HO.HOS 11:25
DX: S52.042A Displaced fracture of coronoid process of left ulna, initial encounter for closed fracture (principal)
CPT/HCPCS: 99213

== ENCOUNTER → 2025-06-26 11:52 | Outpatient (BNV) | payer MEDICARE, SELFPAY | PROVIDERS: Visit Provider Radiology Diagnostic Radiology | DX: S42.412A Displaced simple supracondylar fracture without intercondylar fracture of left humerus, initial encounter for closed fracture (principal); S52.042A Displaced fracture of coronoid process of left ulna, initial encounter for closed fracture | CPT/HCPCS: 73080 ==